=== PATIENT | female | born 1950 | race Caucasian/White ===

== ENCOUNTER 2020-06-11 17:29 | Inpatient (IN) | payer OTHER, SELFPAY ==
[2020-06-11 21:08] VITALS: BP 94/41; PULSE 97; RESP 14; TEMP 37.2; O2SAT 99; BMI 25.5
--- NOTE | 2020-06-11 21:32 | PC.NURSE ---
PT TO ROOM, CHG INTO GOWN AND AWAITING MD'S EVAL.
--- NOTE | 2020-06-11 21:53 | ECG_ITS ---
Test Reason : WEAKNESS Blood Pressure : / mmHG Vent. Rate : 088 BPM Atrial Rate : 088 BPM P-R Int : 132 ms QRS Dur : 070 ms QT Int : 380 ms P-R-T Axes : 025 -08 022 degrees QTc Int : 459 ms Normal sinus rhythm Moderate voltage criteria for LVH, may be normal variant Inferior infarct (cited on or before 18-JAN-2015) Abnormal ECG When compared with ECG of 12-SEP-2019 16:17, No significant change was found Referred By: Mildred Kaur Electronically Signed By:SHAMIR PRATT MD
--- NOTE | 2020-06-11 21:58 | ED_ITS ---
HPI - Female Genitourinary General Chief complaint: Urogenital-Female Stated complaint: ?UTI Time Seen by Provider: 06/11/20 21:45 History of Present Illness HPI Narrative: Patient is a 69-year-old female with a history of Parkinson's, history of dementia currently on Coumadin as well. Patient has a history of DVT/PE in the past. Family did not notice any fever or chills. No trauma n oted. Family noted increasing strong smell of urine. No coughing or congestion or upper respiratory symptoms. No chest pain or shortness of breath. Positive increasing weakness. Related Data Allergies Allergy/AdvReac Type Severity Reaction Status Date / Time amoxicillin [AMOXICILLIN] Allergy Unknown UNKNOWN Unverified 05/03/20 16:49 Review of Systems Review of Systems: Yes Unobtainable due to mental condition and Unobtainable due to mental status (Patient has a long-standing dementia) FOR[facility]LY [facility] Past Medical History Source: obtained from family Medical History Parkinson disease Parkinson's disease dementia Surgical History Hx of section Hx of knee surgery Social History Social History Advance Directives: No Advance Directives Information Provided: Yes Physical Exam Vital Signs: Vital Signs: Vital Signs Temp Pulse Resp BP Pulse Ox 06/12/20 02:00 84 16 110/52 L 99 06/12/20 00:00 97.6 F 84 17 106/65 96 06/11/20 21:08 98.9 F 97 14 94/41 L 99 Body Mass Index 25.5 Appearance: Alert. Oriented X 2 not oriented to time. No acute distress. Eyes: Pupils equal, round and reactive to light. ENT: Pharynx normal. Neck: Normal inspection. Neck supple. No lymph nodes noted. No crepitus CVS: Normal heart rate and rhythm. Pulses normal. Normal S1 and S2 Respiratory: No respiratory distress. Breath sounds normal. No Wheezing. No rales Abdomen: Soft and nontender. No rigidity. No distention. good BS x4 Skin: Skin warm and dry. Normal skin color. Normal skin turgor. Extremities: No lower extremity edema. Neurovascular intact to all extremities. No Lacerations. No Rash Neuro: Oriented X 3. No motor deficit. No sensory deficit. Moving all extermities. No slurred speech Procedures Central Line Placement Right Femoral: Time Out Performed: Yes Patient Placed on Monitor/Pulse Ox: No MD Prep: mask, gown and gloves Central Line Prep: Povidone-Iodine 1% and Chlorhexidine scrub Local Anesthetic: lidocaine 1% Amount of anesthesia used (mL): 3 Ultrasound Used for Placement: No Central Line Lumen Inserted: triple Post Procedure: sutured in place, good blood return, all ports aspirated, flushed, capped and sterile dressing applied Patient Tolerated Procedure: well Complications: none MDM - Female Genitourinary MDM Narrative Medical decision making narrative: Patient had elevated white count. Elevated BUN and creatinine with infected urine. Will give IV fluids. Will admit for IV antibiotics. No evidence for severe sepsis as patient's lactate is 1.4. Currently in stable condition awaiting admissions. Differential Diagnosis Differential diagnosis: Likely urinary tract infection Medical Records Attestation: I reviewed the patient's medical records. Lab Data Attestation: I reviewed the patient's lab results. Result diagrams: 06/12/20 01:19 06/12/20 01:19 Labs: Lab Results 06/11/20 06/12/20 06/12/20 Range/Units 22:17 00:22 00:27 WBC (4.8-10.8) X10*3/uL RBC (4.20-5.50) X10*6/uL Hgb (12.0-16.0) g/dl Hct (37-47) % MCV (80-98) fL MCH (27.0-33.0) pg MCHC (31.0-35.0) g/dl RDW (11.0-16.0) % Plt Count (160-400) X10*3/uL MPV (9.4-12.3) fL Immature Gran % (Auto) (0.0-0.4) % Neut % (Auto) (45-73) % Lymph % (Auto) (20-40) % [place] % (Auto) (2-11) % Eos % (Auto) (0-4) % Baso % (Auto) (0-2) % Lymph # (Auto) (1.2-4.9) X10*3/uL [place] # (Auto) (0.1-1.2) X10*3/uL Eos # (Auto) (0.0-0.4) X10*3/uL Baso # (Auto) (0.0-0.2) X10*3/uL Abs Immat Gran (auto) (0.00-0.03) X10*3/uL Absolute Neuts (auto) (2.0-8.3) X10*3/uL Absolute Nucleated RBC (0.0-0.012) X10*3/uL Nucleated RBC % (auto) (0.0-0.2) /100WBC PT (10.8-13.0) SEC INR (0.9-1.1) Hold Blue Top Sodium (135-145) mmol/L Potassium (3.3-5.1) mmol/l Chloride (96-108) mmol/L Carbon Dioxide (22-29) mmol/L Anion Gap (12-20) BUN (9-16) mg/dL Creatinine (0.5-1.4) mg/dL Estim Creat Clear Calc Estimated GFR POC Glucose 143 H 111 (60-115) mg/dL Random Glucose (60-115) mg/dL Lactic Acid (0.5-2.0) mmol/L Calcium (8.4-10.2) mg/dL Total Bilirubin (0.0-1.0) mg/dL Direct Bilirubin (0.0-0.5) mg/dL AST (5-31) U/L ALT (0-31) U/L Alkaline Phosphatase (39-117) U/L Ammonia (13-55) umol/L Total Protein (6.5-8.0) g/dL Albumin (3.5-5.0) g/dL TSH (0.32-4.0) mIU/mL Urine Color YELLOW Urine Appearance CLOUDY Urine pH 5.5 (5.0-8.0) Ur Specific [place] >= 1.030 H (1.005-1.025) Urine Protein 2+ H (NEG-TRACE) MG/DL Urine Glucose (UA) NEG (NEG) MG/DL Urine Ketones 5 (NEG) MG/DL Urine Blood 1+ H (NEG) Urine Nitrite NEG (NEG) Ur Leukocyte Esterase 2+ H (NEG) Urine RBC 0 (0) /HPF Urine WBC 30-49 H (0-4) /HPF Ur Squamous Epith Cells 2+ /LPF Calcium Phosphate Cryst 1+ /LPF Calcium Oxalate Crystal 1+ /LPF Urine Bacteria 4+ /LPF Urine Yeast 2+ /HPF 06/12/20 06/12/20 06/12/20 Range/Units 01:19 01:19 01:19 WBC 16.4 H (4.8-10.8) X10*3/uL RBC 3.22 L (4.20-5.50) X10*6/uL Hgb 10.4 L (12.0-16.0) g/dl Hct 31.1 L (37-47) % MCV 96.6 (80-98) fL MCH 32.3 (27.0-33.0) pg MCHC 33.4 (31.0-35.0) g/dl RDW 12.4 (11.0-16.0) % Plt Count 372 (160-400) X10*3/uL MPV 10.2 (9.4-12.3) fL Immature Gran % (Auto) 0.3 (0.0-0.4) % Neut % (Auto) 80.4 H (45-73) % Lymph % (Auto) 10.7 L (20-40) % [place] % (Auto) 8.3 (2-11) % Eos % (Auto) 0.1 (0-4) % Baso % (Auto) 0.2 (0-2) % Lymph # (Auto) 1.8 (1.2-4.9) X10*3/uL [place] # (Auto) 1.4 H (0.1-1.2) X10*3/uL Eos # (Auto) 0.0 (0.0-0.4) X10*3/uL Baso # (Auto) 0.0 (0.0-0.2) X10*3/uL Abs Immat Gran (auto) 0.05 H (0.00-0.03) X10*3/uL Absolute Neuts (auto) 13.2 H (2.0-8.3) X10*3/uL Absolute Nucleated RBC 0.000 (0.0-0.012) X10*3/uL Nucleated RBC % (auto) 0.0 (0.0-0.2) /100WBC PT (10.8-13.0) SEC INR (0.9-1.1) Hold Blue Top SEE NOTE Sodium 140 (135-145) mmol/L Potassium 4.4 (3.3-5.1) mmol/l Chloride 106 (96-108) mmol/L Carbon Dioxide 23 (22-29) mmol/L Anion Gap 15 (12-20) BUN 29 H (9-16) mg/dL Creatinine 2.08 H (0.5-1.4) mg/dL Estim Creat Clear Calc 16.6 Estimated GFR 23 POC Glucose (60-115) mg/dL Random Glucose 126 H (60-115) mg/dL Lactic Acid (0.5-2.0) mmol/L Calcium 8.2 L (8.4-10.2) mg/dL Total Bilirubin (0.0-1.0) mg/dL Direct Bilirubin (0.0-0.5) mg/dL AST (5-31) U/L ALT (0-31) U/L Alkaline Phosphatase (39-117) U/L Ammonia (13-55) umol/L Total Protein (6.5-8.0) g/dL Albumin (3.5-5.0) g/dL TSH (0.32-4.0) mIU/mL Urine Color Urine Appearance Urine pH (5.0-8.0) Ur Specific [place] (1.005-1.025) Urine Protein (NEG-TRACE) MG/DL Urine Glucose (UA) (NEG) MG/DL Urine Ketones (NEG) MG/DL Urine Blood (NEG) Urine Nitrite (NEG) Ur Leukocyte Esterase (NEG) Urine RBC (0) /HPF Urine WBC (0-4) /HPF Ur Squamous Epith Cells /LPF Calcium Phosphate Cryst /LPF Calcium Oxalate Crystal /LPF Urine Bacteria /LPF Urine Yeast /HPF 06/12/20 06/12/20 06/12/20 Range/Units 01:19 01:19 01:19 WBC (4.8-10.8) X10*3/uL RBC (4.20-5.50) X10*6/uL Hgb (12.0-16.0) g/dl Hct (37-47) % MCV (80-98) fL MCH (27.0-33.0) pg MCHC (31.0-35.0) g/dl RDW (11.0-16.0) % Plt Count (160-400) X10*3/uL MPV (9.4-12.3) fL Immature Gran % (Auto) (0.0-0.4) % Neut % (Auto) (45-73) % Lymph % (Auto) (20-40) % [place] % (Auto) (2-11) % Eos % (Auto) (0-4) % Baso % (Auto) (0-2) % Lymph # (Auto) (1.2-4.9) X10*3/uL [place] # (Auto) (0.1-1.2) X10*3/uL Eos # (Auto) (0.0-0.4) X10*3/uL Baso # (Auto) (0.0-0.2) X10*3/uL Abs Immat Gran (auto) (0.00-0.03) X10*3/uL Absolute Neuts (auto) (2.0-8.3) X10*3/uL Absolute Nucleated RBC (0.0-0.012) X10*3/uL Nucleated RBC % (auto) (0.0-0.2) /100WBC PT 24.6 H (10.8-13.0) SEC INR 2.1 H (0.9-1.1) Hold Blue Top Sodium (135-145) mmol/L Potassium (3.3-5.1) mmol/l Chloride (96-108) mmol/L Carbon Dioxide (22-29) mmol/L Anion Gap (12-20) BUN (9-16) mg/dL Creatinine (0.5-1.4) mg/dL Estim Creat Clear Calc Estimated GFR POC Glucose (60-115) mg/dL Random Glucose (60-115) mg/dL Lactic Acid (0.5-2.0) mmol/L Calcium (8.4-10.2) mg/dL Total Bilirubin 0.4 (0.0-1.0) mg/dL Direct Bilirubin 0.2 (0.0-0.5) mg/dL AST 16 (5-31) U/L ALT 6 (0-31) U/L Alkaline Phosphatase 72 (39-117) U/L Ammonia 22 (13-55) umol/L Total Protein 6.8 (6.5-8.0) g/dL Albumin 3.4 L (3.5-5.0) g/dL TSH (0.32-4.0) mIU/mL Urine Color Urine Appearance Urine pH (5.0-8.0) Ur Specific [place] (1.005-1.025) Urine Protein (NEG-TRACE) MG/DL Urine Glucose (UA) (NEG) MG/DL Urine Ketones (NEG) MG/DL Urine Blood (NEG) Urine Nitrite (NEG) Ur Leukocyte Esterase (NEG) Urine RBC (0) /HPF Urine WBC (0-4) /HPF Ur Squamous Epith Cells /LPF Calcium Phosphate Cryst /LPF Calcium Oxalate Crystal /LPF Urine Bacteria /LPF Urine Yeast /HPF 06/12/20 06/12/20 Range/Units 01:19 01:19 WBC (4.8-10.8) X10*3/uL RBC (4.20-5.50) X10*6/uL Hgb (12.0-16.0) g/dl Hct (37-47) % MCV (80-98) fL MCH (27.0-33.0) pg MCHC (31.0-35.0) g/dl RDW (11.0-16.0) % Plt Count (160-400) X10*3/uL MPV (9.4-12.3) fL Immature Gran % (Auto) (0.0-0.4) % Neut % (Auto) (45-73) % Lymph % (Auto) (20-40) % [place] % (Auto) (2-11) % Eos % (Auto) (0-4) % Baso % (Auto) (0-2) % Lymph # (Auto) (1.2-4.9) X10*3/uL [place] # (Auto) (0.1-1.2) X10*3/uL Eos # (Auto) (0.0-0.4) X10*3/uL Baso # (Auto) (0.0-0.2) X10*3/uL Abs Immat Gran (auto) (0.00-0.03) X10*3/uL Absolute Neuts (auto) (2.0-8.3) X10*3/uL Absolute Nucleated RBC (0.0-0.012) X10*3/uL Nucleated RBC % (auto) (0.0-0.2) /100WBC PT (10.8-13.0) SEC INR (0.9-1.1) Hold Blue Top Sodium (135-145) mmol/L Potassium (3.3-5.1) mmol/l Chloride (96-108) mmol/L Carbon Dioxide (22-29) mmol/L Anion Gap (12-20) BUN (9-16) mg/dL Creatinine (0.5-1.4) mg/dL Estim Creat Clear Calc Estimated GFR POC Glucose (60-115) mg/dL Random Glucose (60-115) mg/dL Lactic Acid 1.4 (0.5-2.0) mmol/L Calcium (8.4-10.2) mg/dL Total Bilirubin (0.0-1.0) mg/dL Direct Bilirubin (0.0-0.5) mg/dL AST (5-31) U/L ALT (0-31) U/L Alkaline Phosphatase (39-117) U/L Ammonia (13-55) umol/L Total Protein (6.5-8.0) g/dL Albumin (3.5-5.0) g/dL TSH 1.42 (0.32-4.0) mIU/mL Urine Color Urine Appearance Urine pH (5.0-8.0) Ur Specific [place] (1.005-1.025) Urine Protein (NEG-TRACE) MG/DL Urine Glucose (UA) (NEG) MG/DL Urine Ketones (NEG) MG/DL Urine Blood (NEG) Urine Nitrite (NEG) Ur Leukocyte Esterase (NEG) Urine RBC (0) /HPF Urine WBC (0-4) /HPF Ur Squamous Epith Cells /LPF Calcium Phosphate Cryst /LPF Calcium Oxalate Crystal /LPF Urine Bacteria /LPF Urine Yeast /HPF ECG Data ECG interpretation date: 06/12/20 ECG interpretation time: 03:06 Interpretation: Sinus heart rate is 90 [place] QRS QT within normal limits is no acute ST segment elevation noted. Discharge Plan Discharge Clinical Impression: Acute UTI, Acute dehydration
--- NOTE | 2020-06-11 21:59 | XR_ITS ---
EXAMINATION: XR CHEST CLINICAL INFORMATION: Shortness of breath COMPARISON: 09/12/2019 TECHNIQUE: Frontal view of the chest was obtained. FINDINGS: Low lung volumes. Cardiomediastinal silhouette is upper limits of normal, stable. There are some increased interstitial markings which may be chronic. No dense consolidation. No pleural effusion or pneumothorax. XR/XR chest 1V IMPRESSION: No acute cardiopulmonary process.
[2020-06-11 22:00] VITALS: BP 104/58; PULSE 76; RESP 16; O2SAT 99
--- NOTE | 2020-06-11 22:05 | PC.NURSE ---
PT TO COMMODE FOR URINE SAMPLE WITH ASSISTENCE. PT ALERT, PT ON MONITOR, SKIN W/D/P. RESPIRATIONS EASY, N/L. PT IN NAD, CHG INTO GOWN AND MD AT BEDSIDE FOR EVAL.
--- NOTE | 2020-06-11 22:06 | PC.NURSE ---
CXR OBTAINED IN ROOM.
[2020-06-11 22:20] LABS: Glucose, Whole Blood 143 mg/dL (60-115)
[2020-06-11 23:00] VITALS: BP 106/56; PULSE 74; RESP 16; O2SAT 99
[2020-06-11] MEDS: 0.9 % Sodium Chloride 1,000 ML 500 ML IVCONT (23:00)
--- NOTE | 2020-06-11 23:23 | PC.NURSE ---
PT IS A VERY DIFFICULTY. NURSING TRIED FOR IV WITH U/S WITHOUT SUCCESS. MD IN ROOM FOR IV ATTEMPT.
[2020-06-12] VITALS (11 sets, daily range): BP systolic 106–166; BP diastolic 49–86; PULSE 70–85; RESP 16–19; TEMP 36.3–36.8; O2SAT 96–100
[2020-06-12 00:31] LABS: Glucose, Whole Blood 111 mg/dL (60-115)
[2020-06-12 00:33] LABS: Glucose Urine UA NEG (NEG); Leukocyte Esterase Urine 2+ (NEG); Nitrite Urine NEG (NEG); PH 5.5 (5.0-8.0); Specific Gravity - Urine >= 1.030 (1.005-1.025); Urine Blood 1+ (NEG); Urine Ketones 5 MG/DL (NEG); Urine Protein 2+ MG/DL (NEG-TRACE)
[2020-06-12 00:34] LABS: Appearance Urine CLOUDY; Color Urine YELLOW
[2020-06-12 00:44] LABS: Bacteria Urine 4+ /LPF; Calcium Oxalate Crystals Urine 1+ /LPF; Calcium Phosphate Crystals Ur 1+ /LPF; RBC Urine 0 /HPF (0); Squamous Epithelial Cell Urine 2+ /LPF; WBC Urine 30-49 /HPF (0-4)
--- NOTE | 2020-06-12 00:57 | PC.NURSE ---
IN ROOM FOR CENTRAL LINE PLACEMENT.
[2020-06-12 01:29] LABS: MANUAL DIFF FLAG NO
[2020-06-12 01:30] LABS: Basophils Percent Auto 0.2 % (0-2); Eosinophils Percent Auto 0.1 % (0-4); Hematocrit 31.1 % (37-47); Hemoglobin 10.4 g/dl (12.0-16.0); Imm Gran Abs Auto 0.05 X10*3/uL (0.00-0.03); Imm Gran Pct Auto 0.3 % (0.0-0.4); Lymphocytes Absolute Auto 1.8 X10*3/uL (1.2-4.9); Lymphocytes Percent Auto 10.7 % (20-40); Mean Corpuscular HGB Conc 33.4 g/dl (31.0-35.0); Mean Corpuscular Hemoglobin 32.3 pg (27.0-33.0); Mean Corpuscular Volume 96.6 fL (80-98); Mean Platelet Volume 10.2 fL (9.4-12.3); Monocytes Absolute Auto 1.4 X10*3/uL (0.1-1.2); Monocytes Percent Auto 8.3 % (2-11); Neutrophils Absolute Auto 13.2 X10*3/uL (2.0-8.3); Neutrophils Percent Auto 80.4 % (45-73); Platelet Count 372 X10*3/uL (160-400); Red Blood Count 3.22 X10*6/uL (4.20-5.50); Red Cell Distribution Width 12.4 % (11.0-16.0); White Blood Count 16.4 X10*3/uL (4.8-10.8)
[2020-06-12 01:39] LABS: INTERNATIONAL NORM RATIO 2.1 (0.9-1.1); Prothrombin Time 24.6 SEC (10.8-13.0)
[2020-06-12 01:51] LABS: Ammonia 22 umol/L (13-55)
[2020-06-12 01:54] LABS: Lactic Acid 1.4 mmol/L (0.5-2.0)
[2020-06-12 01:57] LABS: Anion Gap 15 (12-20); Blood Urea Nitrogen 29 mg/dL (9-16); Calcium 8.2 mg/dL (8.4-10.2); Carbon Dioxide 23 mmol/L (22-29); Chloride 106 mmol/L (96-108); Creatinine Clr Calc Pharmacy 16.6; Estimated Glomerular Filt Rate 23; Glucose Random 126 mg/dL (60-115); Potassium 4.4 mmol/l (3.3-5.1); Sodium 140 mmol/L (135-145)
[2020-06-12 01:58] LABS: Alanine Aminotransferase 6 U/L (0-31); Albumin Level 3.4 g/dL (3.5-5.0); Alkaline Phosphatase 72 U/L (39-117); Aspartate Amino Transferase 16 U/L (5-31); Bilirubin Direct 0.2 mg/dL (0.0-0.5); Bilirubin Total 0.4 mg/dL (0.0-1.0); Total Protein 6.8 g/dL (6.5-8.0)
--- NOTE | 2020-06-12 02:10 | PC.NURSE ---
PT RESTING IN STRETCHER WITH EYES OPEN, PT IS SPEAKING KHMER WITH DAUGHTER AT BEDSIDE. RESPIRATIONS EASY, N/L. SKIN W/D/P. CALL CASEY W/I REACH AND SIDE RAILS UP X 2. PT REMAINS ON MONITOR WITH HR 76 IN NSR. PT PO 99% ON RA.
[2020-06-12 02:19] LABS: TSH reflex Free T4 1.42 mIU/mL (0.32-4.0)
[2020-06-12] MEDS: cefTRIAXone sodium 1 GM in 0.9 % Sodium Chloride 50 ML IV (03:45)
[2020-06-12 04:32] LABS: SARS COV2 PCR INHOUSE NEGATIVE (Negative)
--- NOTE | 2020-06-12 04:53 | P.HPIM_ITS ---
History of Present Illness Date of Service: 06/12/20 Chief Complaint: altered mental status this is a 69-year-old female with past medical history of DVT on Coumadin who presents to the hospital brought in by her daughter for hallucination, weakness, and possible UTI. Patient's daughter is at bedside and given more of the history. Patient is awake alert and oriented to self and place but is too weak to talk and is [place]-speaking mostly. Her daughter reports that her mother was staying with her for past day or to when she noticed that her mother is more confused, hallucinating, and was telling her that all she wants to do is lay down. She also had low appetite and 1 episode of vomiting. She reports that her the patient had a UTI in the past with similar presentation therefore she was concerned, called the PCP and was asked to bring her to the hospital. Per daughter patient also clenched her left breast but was not telling her much. She is also complaining of bilateral flank pain. When asked her about the chest pain patient is not giving me much history. She denies any fever or chills, no abdominal Pain, no diarrhea or constipation. She is not reporting any urinary symptoms at this time. She has no lower extremity edema pain on arrival to the ED hemodynamically stable with no significant abnormal vitals labs are significant for WBC count of 16.4, INR of 2.1, BUN of 29 with a creatinine of 2.08 (baseline around 0.9 ), UA that is positive for leukocyte Estrace, and WBC past medical history: DVT on Coumadin, Parkinson's disease and dementia surgical history: , knee surgery Family history: Denies Social history: Lives by herself mostly, uses a walker or cane sometimes, has [employer] come in daily, denies any tobacco alcohol or illicit drug Review of Systems Review of Systems: Yes all other systems are reviewed and are negative [facility] Medical History History of DVT (deep vein thrombosis) Parkinson disease Parkinson's disease dementia Surgical History Hx of section Hx of knee surgery Social History Advance Directives: No Advance Directives Information Provided: Yes Meds Allergies Allergy/AdvReac Type Severity Reaction Status Date / Time amoxicillin [AMOXICILLIN] Allergy Unknown UNKNOWN Unverified 05/03/20 16:49 Physical Exam Vital Signs and Narrative: Vital Signs: Last Vital Signs Temp 97.6 F 06/12/20 00:00 Pulse 85 06/12/20 04:00 Resp 18 06/12/20 04:00 BP 122/63 06/12/20 04:00 Pulse Ox 99 06/12/20 04:00 Body Mass Index 25.5 Const: Other: patient appears ill, weak, not forthcoming with much information General: cooperative and no acute distress Eyes: General: appearance normal, both eyes and all related structures Pupils: Equal, round and reactive pupils present Resp: Effort & Inspection: normal respiratory effort and able to speak in complete sentences Auscultation: clear to auscultation bilaterally Cardio: Rate: regular rate Rhythm: regular rhythm GI: Palpation (GI): Soft to palpation Auscultation: normal bowel sounds : Other: bilateral flank pain Skin: General skin exam: no rashes or lesions noted Neuro: Cranial nerves: Yes Equal, round and reactive pupils present Cognition (Neuro): normal cognition Extrem: General: Yes normal to inspection and Yes no pedal edema Results Labs Labs: Laboratory Tests 06/11/20 06/12/20 06/12/20 22:17 00:22 00:27 WBC RBC Hgb Hct MCV MCH MCHC RDW Plt Count MPV Immature Gran % (Auto) Neut % (Auto) Lymph % (Auto) Sac % (Auto) Eos % (Auto) Baso % (Auto) Lymph # (Auto) Sac # (Auto) Eos # (Auto) Baso # (Auto) Abs Immat Gran (auto) Absolute Neuts (auto) Absolute Nucleated RBC Nucleated RBC % (auto) PT INR Hold Blue Top Sodium Potassium Chloride Carbon Dioxide Anion Gap BUN Creatinine Estim Creat Clear Calc Estimated GFR POC Glucose 143 H 111 Random Glucose Lactic Acid Calcium Total Bilirubin Direct Bilirubin AST ALT Alkaline Phosphatase Ammonia Total Protein Albumin TSH Urine Color YELLOW Urine Appearance CLOUDY Urine pH 5.5 Ur Specific [place] >= 1.030 H Urine Protein 2+ H Urine Glucose (UA) NEG Urine Ketones 5 Urine Blood 1+ H Urine Nitrite NEG Ur Leukocyte Esterase 2+ H Urine RBC 0 Urine WBC 30-49 H Ur Squamous Epith Cells 2+ Calcium Phosphate Cryst 1+ Calcium Oxalate Crystal 1+ Urine Bacteria 4+ Urine Yeast 2+ Coronavirus (PCR) 06/12/20 06/12/20 06/12/20 01:19 01:19 01:19 WBC 16.4 H RBC 3.22 L Hgb 10.4 L Hct 31.1 L MCV 96.6 MCH 32.3 MCHC 33.4 RDW 12.4 Plt Count 372 MPV 10.2 Immature Gran % (Auto) 0.3 Neut % (Auto) 80.4 H Lymph % (Auto) 10.7 L Sac % (Auto) 8.3 Eos % (Auto) 0.1 Baso % (Auto) 0.2 Lymph # (Auto) 1.8 Sac # (Auto) 1.4 H Eos # (Auto) 0.0 Baso # (Auto) 0.0 Abs Immat Gran (auto) 0.05 H Absolute Neuts (auto) 13.2 H Absolute Nucleated RBC 0.000 Nucleated RBC % (auto) 0.0 PT INR Hold Blue Top SEE NOTE Sodium 140 Potassium 4.4 Chloride 106 Carbon Dioxide 23 Anion Gap 15 BUN 29 H Creatinine 2.08 H Estim Creat Clear Calc 16.6 Estimated GFR 23 POC Glucose Random Glucose 126 H Lactic Acid Calcium 8.2 L Total Bilirubin Direct Bilirubin AST ALT Alkaline Phosphatase Ammonia Total Protein Albumin TSH Urine Color Urine Appearance Urine pH Ur Specific [place] Urine Protein Urine Glucose (UA) Urine Ketones Urine Blood Urine Nitrite Ur Leukocyte Esterase Urine RBC Urine WBC Ur Squamous Epith Cells Calcium Phosphate Cryst Calcium Oxalate Crystal Urine Bacteria Urine Yeast Coronavirus (PCR) 06/12/20 06/12/20 06/12/20 01:19 01:19 01:19 WBC RBC Hgb Hct MCV MCH MCHC RDW Plt Count MPV Immature Gran % (Auto) Neut % (Auto) Lymph % (Auto) Sac % (Auto) Eos % (Auto) Baso % (Auto) Lymph # (Auto) Sac # (Auto) Eos # (Auto) Baso # (Auto) Abs Immat Gran (auto) Absolute Neuts (auto) Absolute Nucleated RBC Nucleated RBC % (auto) PT 24.6 H INR 2.1 H Hold Blue Top Sodium Potassium Chloride Carbon Dioxide Anion Gap BUN Creatinine Estim Creat Clear Calc Estimated GFR POC Glucose Random Glucose Lactic Acid Calcium Total Bilirubin 0.4 Direct Bilirubin 0.2 AST 16 ALT 6 Alkaline Phosphatase 72 Ammonia 22 Total Protein 6.8 Albumin 3.4 L TSH Urine Color Urine Appearance Urine pH Ur Specific [place] Urine Protein Urine Glucose (UA) Urine Ketones Urine Blood Urine Nitrite Ur Leukocyte Esterase Urine RBC Urine WBC Ur Squamous Epith Cells Calcium Phosphate Cryst Calcium Oxalate Crystal Urine Bacteria Urine Yeast Coronavirus (PCR) 06/12/20 06/12/20 06/12/20 01:19 01:19 03:25 WBC RBC Hgb Hct MCV MCH MCHC RDW Plt Count MPV Immature Gran % (Auto) Neut % (Auto) Lymph % (Auto) Sac % (Auto) Eos % (Auto) Baso % (Auto) Lymph # (Auto) Sac # (Auto) Eos # (Auto) Baso # (Auto) Abs Immat Gran (auto) Absolute Neuts (auto) Absolute Nucleated RBC Nucleated RBC % (auto) PT INR Hold Blue Top Sodium Potassium Chloride Carbon Dioxide Anion Gap BUN Creatinine Estim Creat Clear Calc Estimated GFR POC Glucose Random Glucose Lactic Acid 1.4 Calcium Total Bilirubin Direct Bilirubin AST ALT Alkaline Phosphatase Ammonia Total Protein Albumin TSH 1.42 Urine Color Urine Appearance Urine pH Ur Specific [place] Urine Protein Urine Glucose (UA) Urine Ketones Urine Blood Urine Nitrite Ur Leukocyte Esterase Urine RBC Urine WBC Ur Squamous Epith Cells Calcium Phosphate Cryst Calcium Oxalate Crystal Urine Bacteria Urine Yeast Coronavirus (PCR) NEGATIVE ECG Interpretation: Normal sinus rhythm Moderate voltage criteria for LVH, may be normal variant Inferior infarct (cited on or before 18-JAN-2015) Abnormal ECG When compared with ECG of 12-SEP-2019 16:17, No significant change was found Imaging CT scan - abdomen: Radiologist's impression: No acute findings in the abdomen or pelvis. No inflammatory changes. Nonobstructing bilateral renal calculi. CT scan - head: Radiologist's impression: IMPRESSION: No acute intracranial pathology. Mild volume loss with small vessel ischemic change. Assessment and Plan (1) Acute UTI: Status: Acute (2) CARMEN (acute kidney injury): Status: Acute (3) Encephalopathy: Status: Acute (4) History of DVT (deep vein thrombosis): Status: Acute this is a 69-year-old female brought in to the hospital with en cephalopathy found to have UTI and CARMEN # encephalopathy - secondary to acute infection and dehydration - has leukocytosis, UA that is positive, per her daughter patient is slightly back to her normal now that she is in the hospital received fluids and antibiotic plan: - Treat underlying infection - IV hydration - will follow mental status # UTI/ pyelonephritis - no evidence of sepsis - has bilateral CVA tenderness - UA positive, leukocytosis, afebrile, no tachycardia or tachypnea Plan: - Ceftriaxone - urine blood cultures collected in the ED will follow # CARMEN - most likely secondary to dehydration as well as acute UTI plan: - Treat with IV fluid - follow BMP - if no improvement consider consulting Nephrology # history of DVT - therapeutic INR - will continue Coumadin, PT INR daily # Parkinson's dementia DVT prophylaxis: Coumadin
--- NOTE | 2020-06-12 04:55 | PC.NURSE ---
UNABLE TO CONFIRM MEDICATIONS. DAUGHTER IS GOING HOME TO GET MEDICATION LIST AND WILL RETURN WITH THE LIST. DAUGHTER DOES NOT REMEMBER ANY NAMES OF THE MEDS PT IS ON. DAUGHTER IS GOING HOME WILL RETURN AROUND 0800 TODAY,
--- NOTE | 2020-06-12 05:26 | PC.NURSE ---
FLOOR UNABLE TO TAKE REPORT AT THIS TIME. WILL RETURN CALL.
--- NOTE | 2020-06-12 05:33 | PC.NURSE ---
DAUGHTER IS LEAVING ED AT THIS TIME AND WILL RETURN WITH THE LISTS.
--- NOTE | 2020-06-12 06:05 | PC.NURSE ---
FLOOR UNABLE TO TAKE REPORT, PT REMAINS AWAKE AND ALERT, LOOKING AROUND AND WATCHING TV. PT IN NAD AT THIS TIME. CALL JACINTO W/I REACH, BED IN LOW LOCKED POSITION. PT AWAITING FOR TRANSFER TO FLOOR,.
--- NOTE | 2020-06-12 06:30 | PC.NURSE ---
REPORT TO RUDOLPH, RN. PT TO FLOOR IN STRETCHER AND LEFT ED IN NAD.
[2020-06-12] MEDS: Lactated Ringers 1,000 ML 100 ML IVCONT ×2 (07:37→17:43)
[2020-06-12] MEDS: 0.9 % Sodium Chloride Flush 3 ML SYRINGE IVFLUSH ×2 (07:40→15:53)
[2020-06-12 09:27] LABS: Troponin-I High Sensitivity 28.4 ng/L (<3.5-17.0)
--- NOTE | 2020-06-12 11:37 | MHC.CM.PN ---
CM spoke with dtr/HCP Susan who reports patient lives alone, amb with cane/walker and uses a wheel chair for distance. Patient has DIRECTOR OF COMMUNICATIONS services with Tim daily who helps cook, housework, bathing and laundry. Patient has a HCP, copy requested. Discussed discharge plan, home with resumption of [employer]OR [employer] COMM[employer]ICATION[employer] services. Family will provide transportation. CM will continue to follow patient for discharge needs.
[2020-06-12] MEDS: PARoxetine HCL 20 MG TABLET PO (15:53)
[2020-06-12] MEDS: Carbidopa/Levodopa 25/100 TABLET 2 TAB PO ×2 (15:53→20:05)
[2020-06-12] MEDS: Pramipexole Di-HCL 0.25 MG TABLET PO ×2 (16:25→20:51)
[2020-06-12] MEDS: QUEtiapine Fumarate 25 MG TABLET PO (20:51)
--- NOTE | 2020-06-12 21:53 | CT_ITS ---
EXAMINATION: CT HEAD WITHOUT CONTRAST CLINICAL INFORMATION: Altered mental status. COMPARISON: 09/12/2019 TECHNIQUE: Contiguous axial imaging was performed from the skull base to vertex without intravenous contrast. This CT examination was performed using dose optimization techniques as appropriate, variously including the following: * Automated exposure control * Adjustment of mA and/or kV according to patient size (this includes techniques or standardized protocols for targeted exams where dose is matched to indication/reason for exam; i.e. extremities or head) Use of iterative reconstruction technique DLP: 627 mGy-cm. FINDINGS: There is no evidence of acute intracranial hemorrhage or territorial infarction. No abnormal mass effect or midline shift is seen. Herrera to white matter differentiation is well preserved. No extra-axial fluid collections are identified. No hydrocephalus. Proportional prominence of the ventricles and sulcal spaces is consistent with mild volume loss. Patchy periventricular and deep white matter hypoattenuation is consistent with mild small vessel ischemic changes. The osseous structures and soft tissues are normal. Mucous retention cyst of the left maxillary sinus. The mastoid air cells and visualized portions of the paranasal sinuses are otherwise well aerated. CT/CT head/brain wo con IMPRESSION: No acute intracranial pathology. Mild volume loss with small vessel ischemic change.
--- NOTE | 2020-06-12 21:53 | CT_ITS ---
EXAMINATION: CT ABDOMEN AND PELVIS WITHOUT CONTRAST CLINICAL INFORMATION: Abdominal pain COMPARISON: 06/06/2019 TECHNIQUE: Multidetector volumetric imaging was performed from the superior aspect of the liver through the pubic symphysis. Sagittal and coronal reformatted images were obtained on the technologist's workstation. This CT examination was performed using dose optimization techniques as appropriate, variously including the following: *Automated exposure control *Adjustment of mA and/or kV according to patient size (this includes techniques or standardized protocols for targeted exams where dose is matched to indication/reason for exam; i.e. extremities or head) *Use of iterative reconstruction technique DLP: 442 mGy-cm FINDINGS: LUNG BASES: Bibasilar atelectasis. Coronary artery calcification. LIVER, GALLBLADDER, AND BILIARY TREE: The liver is normal in size, shape, and attenuation. No focal hepatic lesion or biliary ductal dilatation is present. The gallbladder is unremarkable with no evidence of radiopaque gallstones, gallbladder wall thickening, or obvious pericholecystic inflammatory changes. PANCREAS: Unremarkable. SPLEEN: Unremarkable. ADRENAL GLANDS: Unremarkable. KIDNEYS AND URETERS: The kidneys are normal in size, shape, and attenuation. No hydronephrosis or hydroureter. Left mid to lower pole 0.4 cm calculus is 7 cm from the posterior axillary line. There is also 0.1 cm left lower pole calculus. There is a right upper pole 0.5 cm calculus which is 7 cm from the posterior axillary line. BLADDER: Unremarkable. GASTROINTESTINAL TRACT: The stomach is unremarkable. Normal caliber small bowel. There is no obstruction. No colonic wall thickening or acute inflammation. Mild sigmoid diverticulosis without diverticulitis. The appendix is not seen. No inflammatory changes at the cecum. ABDOMINAL WALL: No significant hernia is appreciated. LYMPH NODES: Normal. VASCULAR: Normal caliber aorta. Mild atherosclerotic calcification. Radiopaque clips are seen at the distal aorta region. PELVIC VISCERA: No adnexal mass. Uterus is not visualized. OSSEOUS STRUCTURES: No acute or suspicious osseous abnormality. Moderate multilevel degenerative changes of the spine. CT/CT abdomen pelvis wo con IMPRESSION: No acute findings in the abdomen or pelvis. No inflammatory changes. Nonobstructing bilateral renal calculi.
[2020-06-13] MEDS: 0.9 % Sodium Chloride Flush 3 ML SYRINGE IVFLUSH (01:40)
[2020-06-13 03:29] VITALS: BP 133/81; PULSE 67; RESP 17; TEMP 36.8; O2SAT 98
[2020-06-13] MEDS: Lactated Ringers 1,000 ML 100 ML IVCONT (04:10)
[2020-06-13] MEDS: Carbidopa/Levodopa 25/100 TABLET 2 TAB PO ×2 (05:56→11:13)
[2020-06-13] MEDS: cefTRIAXone sodium 1 GM in 0.9 % Sodium Chloride 50 ML IV (05:56)
[2020-06-13 06:21] LABS: MANUAL DIFF FLAG NO
[2020-06-13 06:35] LABS: Basophils Percent Auto 0.2 % (0-2); Eosinophils Absolute Auto 0.1 X10*3/uL (0.0-0.4); Eosinophils Percent Auto 0.5 % (0-4); Hematocrit 30.7 % (37-47); Hemoglobin 10.2 g/dl (12.0-16.0); Imm Gran Abs Auto 0.04 X10*3/uL (0.00-0.03); Imm Gran Pct Auto 0.4 % (0.0-0.4); Lymphocytes Absolute Auto 2.2 X10*3/uL (1.2-4.9); Mean Corpuscular HGB Conc 33.2 g/dl (31.0-35.0); Mean Corpuscular Hemoglobin 32.6 pg (27.0-33.0); Mean Corpuscular Volume 98.1 fL (80-98); Mean Platelet Volume 11.6 fL (9.4-12.3); Monocytes Percent Auto 9.7 % (2-11); Neutrophils Absolute Auto 6.6 X10*3/uL (2.0-8.3); Neutrophils Percent Auto 67.2 % (45-73); Platelet Count 279 X10*3/uL (160-400); Red Blood Count 3.13 X10*6/uL (4.20-5.50); Red Cell Distribution Width 12.5 % (11.0-16.0); White Blood Count 9.9 X10*3/uL (4.8-10.8)
[2020-06-13 06:41] LABS: INTERNATIONAL NORM RATIO 1.7 (0.9-1.1); Prothrombin Time 20.2 SEC (10.8-13.0)
[2020-06-13 06:57] LABS: Anion Gap 15 (12-20); Blood Urea Nitrogen 28 mg/dL (9-16); Carbon Dioxide 24 mmol/L (22-29); Chloride 107 mmol/L (96-108); Creatinine Clr Calc Pharmacy 33.2; Estimated Glomerular Filt Rate 52; Glucose Random 100 mg/dL (60-115); Potassium 4.5 mmol/l (3.3-5.1); Sodium 141 mmol/L (135-145)
[2020-06-13 07:39] VITALS: BP 138/76; PULSE 66; RESP 16; TEMP 36.2; O2SAT 100
[2020-06-13] MEDS: PARoxetine HCL 20 MG TABLET PO (08:03)
[2020-06-13] MEDS: Omeprazole 20 MG CAPSULE.DR PO (08:03)
[2020-06-13] MEDS: Pramipexole Di-HCL 0.25 MG TABLET PO (08:03)
[2020-06-13] MEDS: QUEtiapine Fumarate 25 MG TABLET PO (08:03)
[2020-06-13] MEDS: Multivitamin TABLET 1 TAB PO (08:03)
--- NOTE | 2020-06-13 08:23 | P.CDIC_ITS ---
[facility] Concurrent Query Service Date: 06/13/20 Documentation Clarification: Please clarify if you are treating a proba ble/suspected/likely or confirmed: Specifics: Acute encephalopathy Toxic encephalopathy Metabolic encephalopathy Please specify if known Provider Response: Metabolic Encephalopathy PLEASE DO NOT DELETE/MODIFY EXISTING CONTENT Additional information is needed in order to code to the highest accuracy and appropriate Severity of Illness (SOI). Please clarify the information noted below in your progress notes and discharge summary. Risk Factors/Clinical Indicators/Treatments H&P: encephalopathy, acute secondary to infection and dehydration. confused, hallucinations, low appetite. Dx. UTI CDS: Rosey Caicedo CCS, [facility] Contact Number: [phone] Please Review the information above and exercise your independent professional judgment in responding to the query. If you concur, pleas document in the PROGRESS NOTES and DISCHARGE SUMMARY. If you do not agree with the query, please document in the query above. THIS QUERY IS PART OF THE PERMANENT MEDICAL RECORD
[2020-06-13 11:19] VITALS: BP 132/74; PULSE 73; RESP 18; TEMP 36.3; O2SAT 98
--- NOTE | 2020-06-13 11:48 | P.DS_ITS ---
DS: Providers Provider Date of admission: 06/12/20 04:52 Primary care physician: Mirella Saavedra DO DS: Diagnosis Discharge Diagnosis (1) Acute UTI: Status: Acute (2) CARMEN (acute kidney injury): Status: Acute (3) Encephalopathy: Status: Acute (4) History of DVT (deep vein thrombosis): Status: Acute DS: Summary Hospital Course Hospital Course: Patient was admitted for metabolic encephalopathy due to urinary tract infection dehydration complicated by acute kidney injury. She was given IV hydration and IV ceftriaxone. Mental status improved to baseline and acute kidney injury resolved. Urine cultures are growing Gram-negative rods, she will be discharged on 3 more days of p.o. Ceftin. Time Spent with Patient Time attestation: Total time spent providing and/or coordinating discharge services: Physical Exam Vital Signs: Vital Signs: Vital Signs Temp Pulse Resp BP Pulse Ox 06/13/20 11:19 97.3 F 73 18 132/74 98 06/13/20 07:39 97.1 F 66 16 138/76 100 06/13/20 03:29 98.2 F 67 17 133/81 98 06/12/20 23:36 98.2 F 70 18 155/71 H 98 06/12/20 20:00 98 F 76 19 129/60 98 06/12/20 15:43 97.9 F 78 18 166/86 H 98 Body Mass Index 25.5 General: Alert, pleasant, no acute distress Resp: CTA bilateral CVS: S1,S2,RRR GI: soft, non tender, non distended Neuro: motor grossly intact Psych: impaired insight DS: Data Data Completed and Pending Labs on day of discharge: Labs from last 24 hours 06/13/20 06/13/20 06/13/20 05:29 05:29 05:29 WBC 9.9 RBC 3.13 L Hgb 10.2 L Hct 30.7 L MCV 98.1 H MCH 32.6 MCHC 33.2 RDW 12.5 Plt Count 279 MPV 11.6 Immature Gran % (Auto) 0.4 Neut % (Auto) 67.2 Lymph % (Auto) 22.0 [place] % (Auto) 9.7 Eos % (Auto) 0.5 Baso % (Auto) 0.2 Lymph # (Auto) 2.2 [place] # (Auto) 1.0 Eos # (Auto) 0.1 Baso # (Auto) 0.0 Abs Immat Gran (auto) 0.04 H Absolute Neuts (auto) 6.6 Absolute Nucleated RBC 0.000 Nucleated RBC % (auto) 0.0 PT 20.2 H INR 1.7 H Sodium 141 Potassium 4.5 Chloride 107 Carbon Dioxide 24 Anion Gap 15 BUN 28 H Creatinine 1.04 Estim Creat Clear Calc 33.2 Estimated GFR 52 Random Glucose 100 Calcium 8.0 L Preliminary micro results at discharge 06/12/20 01:45 Urine Culture - Preliminary Urine clean catch - Clean Catch Midstream Gram negative denice Gram negative denice#2 06/12/20 01:18 Blood Culture - Preliminary Blood - Venous No growth after 24 hours. 06/12/20 01:18 Blood Culture - Preliminary Blood - Venous No growth after 24 hours. Discharge Plan Discharge Patient Disposition: Home Health Service Referrals: Mirella Medina DO [Primary Care Provider] - Discharge Medications: New cefuroxime axetil 250 mg tablet 250 mg PO Q12H Qty: 6 RF: 0 Continued quetiapine 25 mg tablet 25 mg PO BID RF: 0 cetirizine 10 mg tablet 10 mg PO DAILY PRN (Reason: allergies) RF: 0 clonazepam 0.5 mg tablet 0.5 mg PO BID PRN (Reason: anxiety) RF: 0 warfarin 2.5 mg tablet 2.5 tab PO DAILY@1600 RF: 0 paroxetine HCl 20 mg tablet 20 mg PO QAM RF: 0 pramipexole 0.25 mg tablet 0.25 mg PO TID RF: 0 omeprazole 20 mg capsule,delayed release(DR/EC) 20 mg PO DAILY RF: 0 multivitamin Tablet 1 tab PO DAILY RF: 0 carbidopa-levodopa 25-100 mg tablet 2 tab PO 0700,1100,1500,1900 RF: 0 nitrofurantoin macrocrystal 50 mg capsule 50 mg PO BEDTIME Qty: 0 RF: 0 Discharge Orders: Discharge Order (Routine); Ordered 06/13/20 Ordered By: Ben Mas Diet: advance to your usual diet Activity on Discharge: As tolerated Visit Report Forms: Patient Portal Discharge page Care Plan Goals: recovery Health Concerns: uti, parkinsons with dementia Plan of Treatment: complete antibiotic course, encourage oral intake
--- NOTE | 2020-06-13 11:52 | MHC.CM.PN ---
Patient is being discharged home today with resumption of [facility] services. Family will provide transport.
--- NOTE | 2020-06-13 14:09 | PC.NURSE ---
TLC removed per facility protocol from right groin. Tip intact. No s/sx of infection to site.
== END 2020-06-13 15:48 | disposition home health service (06) | DRG 689 ==
LOC: HO.ED 06-12 04:50 → HO.IMC 06-12 05:17
PROVIDERS: Admitting Provider Internal Medicine; Emergency Provider Emergency Medicine Emergency Medical Services; PCP Internal Medicine; Visit Provider Internal Medicine
DX: N39.0 Urinary tract infection, site not specified (principal); G93.41 Metabolic encephalopathy; N17.9 Acute kidney failure, unspecified; Z86.718 Personal history of other venous thrombosis and embolism; E86.0 Dehydration; G20 Parkinson's disease; F02.80 Dementia in other diseases classified elsewhere, unspecified severity, without behavioral disturbance, psychotic disturbance, mood disturbance, and anxiety; Z20.828 Contact with and (suspected) exposure to other viral communicable diseases; Z88.0 Allergy status to penicillin; Z79.01 Long term (current) use of anticoagulants; Z79.899 Other long term (current) drug therapy
CPT/HCPCS: 36415; 70450; 71045; 74176; 80048; 80076; 81001; 82140; 82947; 83605; 84443; 84484; 85025; 85610; 87040; 87086; 87088; 87186; 87635; 93005; 96361; 96365; 99219; 99284; 99285; J0696

== ENCOUNTER 2020-06-22 11:45 | Outpatient (REF) | payer OTHER, SELFPAY ==
--- NOTE | 2020-06-22 | US_ITS ---
EXAMINATION: US RETROPERITONEAL LIMITED (RENAL ONLY) CLINICAL INFORMATION: Calculus of kidney. COMPARISON: CT abdomen and pelvis 06/12/2020. Renal ultrasound 05/13/2019. KUB 04/20/2019. TECHNIQUE: Real-time imaging of the kidneys. FINDINGS: RIGHT KIDNEY: 8.5 x 4.3 x 4.2 cm (SAG x AP x TRV). The kidney is normal in size, contour, and echogenicity. Renal cortical thickness is normal. There is a 3 x 4 x 5 mm in the upper pole stone. No focal parenchymal lesions or hydronephrosis. LEFT KIDNEY: 9.3 x 5.0 x 4.6 cm (SAG x AP x TRV). The kidney is normal in size, contour, and echogenicity. Renal cortical thickness is normal. There are multiple renal stones. Largest stone or cluster of stones measures in the lower pole 4 x 7 x 5 mm full. No focal parenchymal lesions or hydronephrosis. US/US renal BI IMPRESSION: Bilateral renal stones, left greater than right.
== END 2020-06-22 11:46 | disposition home or self-care (01) ==
LOC: HO.HMGCX 11:45
PROVIDERS: PCP Internal Medicine; Visit Provider Urology
DX: N20.0 Calculus of kidney (principal)
CPT/HCPCS: 76775

== ENCOUNTER → 2020-10-02 09:55 | Outpatient (BNVA) | payer OTHER, SELFPAY | PROVIDERS: PCP Internal Medicine; Visit Provider Urology | DX: Z13.89 Encounter for screening for other disorder (principal) | CPT/HCPCS: 99202 ==

== ENCOUNTER 2020-10-04 12:44 | Emergency (ER) | payer OTHER, SELFPAY ==
--- NOTE | ~2020-10-04 | CT_ITS ---
EXAMINATION: CT CERVICAL SPINE WITHOUT CONTRAST CLINICAL INFORMATION: Syncope COMPARISON: CT cervical spine noncontrast 03/05/2014 TECHNIQUE: Multidetector volumetric CT imaging of the cervical spine is performed without contrast in the axial plane. Additional 2D reformatted coronal and sagittal images are generated on the CT workstation and uploaded to PACS. This CT examination was performed using dose optimization techniques as appropriate, variously including the following: *Automated exposure control *Adjustment of mA and/or kV according to patient size (this includes techniques or standardized protocols for targeted exams where dose is matched to indication/reason for exam; i.e. extremities or head) *Use of iterative reconstruction technique DLP: 251 mGy-cm FINDINGS: There is no vertebral compression fracture, fracture line, spondylolisthesis, or prevertebral soft tissue swelling. The craniocervical junction appears normal. The odontoid appears intact. There is reversal cervical lordosis which is chronic finding. There are degenerative changes again seen between anterior arch C1 and the dens. There are multilevel degenerative disc changes greatest at C5-C6 and also at C4-C5 and C6-C7, with disc narrowing and vertebral spurring. There is no perched facet. Subcentimeter circumscribed cyst left T2 posterior element is stable. No paraspinal soft tissue swelling. No apical pneumothorax or subcutaneous emphysema. CT/CT cervical spine wo con IMPRESSION: 1. No acute bony abnormality or prevertebral soft tissue swelling. 2. Chronic reversal cervical lordosis with multilevel degenerative changes.
--- NOTE | ~2020-10-04 | XR_ITS ---
EXAMINATION: XR CHEST CLINICAL INFORMATION: Syncope. COMPARISON: 06/11/2020 portable chest. TECHNIQUE: 2 views of the chest were obtained. FINDINGS: No significant abnormality is noted involving the heart, lungs, mediastinum, bony thorax or soft tissues. XR/XR chest 2V IMPRESSION: No acute cardiopulmonary process.
--- NOTE | ~2020-10-04 | CT_ITS ---
EXAMINATION: CT HEAD WITHOUT CONTRAST CLINICAL INFORMATION: Syncope COMPARISON: CT head noncontrast 06/12/2020 TECHNIQUE: Contiguous axial imaging was performed from the skull base to vertex without intravenous administration of contrast. Additional 2-D coronal and sagittal reformatted images are generated on the CT workstation and uploaded to PACS. This CT examination was performed using dose optimization techniques as appropriate, variously including the following: *Automated exposure control *Adjustment of mA and/or kV according to patient size (this includes techniques or standardized protocols for targeted exams where dose is matched to indication/reason for exam; i.e. extremities or head) *Use of iterative reconstruction technique DLP: 653 mGy-cm FINDINGS: There is no intracranial hemorrhage, hematoma, or extra-axial fluid collection. The ventricles are normal in size. There is no hydrocephalus, edema, or mass effect. There is some accentuation of the cortical sulci, fissures, and cisterns similar to prior study. Again, there is periventricular white matter gliosis most adjacent to frontal horns, slightly greater on right. There is bilateral punctate anterior external capsule lacunar infarct again seen. There is no visible acute territorial infarct or mass lesion. The calvarium appears intact. There is no pneumocephalus or orbital emphysema. The sinuses and middle ears and mastoids show no air-fluid levels. Again, there is retention cyst or polyp left maxillary sinus approximately 1.5 cm and new smaller polyp or cyst right maxillary sinus 0.[address]/CT head/brain wo con IMPRESSION: No acute intracranial abnormality.
--- NOTE | 2020-10-04 12:59 | ECG_ITS ---
Test Reason : SYNCOPE Blood Pressure : / mmHG Vent. Rate : 091 BPM Atrial Rate : 091 BPM P-R Int : 130 ms QRS Dur : 070 ms QT Int : 370 ms P-R-T Axes : 036 -06 031 degrees QTc Int : 455 ms Normal sinus rhythm Minimal voltage criteria for LVH, may be normal variant Inferior infarct (cited on or before 18-JAN-2015) Cannot rule out Anterior infarct , age undetermined Abnormal ECG When compared with ECG of 11-JUN-2020 22:40, No significant change was found Referred By: Celia Bolanos Electronically Signed By:Forrest Argeuta
[2020-10-04 13:00] VITALS: BP 105/56; BP 98/68; PULSE 90; RESP 18; TEMP 36.6; O2SAT 96; O2SAT 98; BMI 25.0
[2020-10-04 13:12] LABS: Glucose, Whole Blood 144 mg/dL (60-115)
--- NOTE | 2020-10-04 13:27 | ED.DIZZY ---
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 Tilley and chronically on ciprofloxacin daughter unsure exactly why prescribed by [facility], nephrolithiasis and osteopenia presenting to the ED via EMS after being at the Coumadin clinic prior to arrival and having a near syncopal episode witnessed by her daughter and bystanders. I called the daughter Susan at [phone] and she explained to me that when they were leaving the [facility] Clinic after having a good morning including breakfast the mother was reporting that she had to use the bathroom therefore they went into the bathroom and she was sitting on the toilet for a while and the daughter noticed that she was struggling to have a bowel movement therefore she assisted her by massaging her anus/rectal area which she normally does to help her mother have a bowel movement, then her mother was able to have a bowel movement and she assisted her mother with re-dressing and when her mother went to wash her hands she noticed that she was weak and she almost fell over therefore she finished washing her mother's hands for her walker outside of the bathroom and sat her down in the chair next to the bathroom this is when she started to tell her daughter that she was dizzy and felt like she after vomit therefore her daughter went to the bathroom to get some tissue when she came out a bystander had told her daughter that the patient had thrown up. Therefore bystanders that work there helped lay the patient down to the ground and they called EMS. Daughter reports that at the time she seemed more confused than normal. Reports that when she gets more confused than normal with usually because of the UTIs although she is currently on 2 different antibiotics so she is unsure why this happened today. Patient arrived by EMS she is presently confused although no focal neuro deficits and she was able to assist in taken off all her clothes and she had a bowel movement in her pull up therefore we assisted to change her. She was only reporting that she had to urinate otherwise denies any complaints at this time. MD elicited complaint: dizziness and near syncope Pertinent past history: other (PE/DVT/recurrent UTIs) Onset (ago): minute(s) (Few minutes prior to arrival) Timing: gradual onset and constant Severity: moderate Description: near-syncope Context: change in medication (Started on Augmentin on 10/02/[address] Tilley) History of similar symptoms: No Associated symptoms: nausea and vomiting Related Data Home Medications Medication Instructions Recorded Confirmed carbidopa-levodopa 2 tab PO 0700,1100,1500,1900 06/12/20 06/12/20 cetirizine 10 mg PO DAILY PRN 06/12/20 06/13/20 clonazepam 0.5 mg PO BID PRN 06/12/20 06/13/20 multivitamin 1 tab PO DAILY 06/12/20 06/12/20 omeprazole 20 mg PO DAILY 06/12/20 06/13/20 paroxetine HCl 20 mg PO QAM 06/12/20 06/13/20 pramipexole 0.25 mg PO TID 06/12/20 06/13/20 quetiapine 25 mg PO BID 06/12/20 06/13/20 warfarin 2.5 tab PO DAILY@1600 06/12/20 06/13/20 Previous Rx's Medication Instructions Recorded cefuroxime axetil 250 mg PO Q12H #6 tab 06/13/20 nitrofurantoin macrocrystal 50 mg PO BEDTIME #0 cap 06/13/20 amoxicillin 875 mg-potassium 1 tab PO BID 7 Days #14 tab 10/02/20 clavulanate 125 mg tablet Allergies Allergy/AdvReac Type Severity Reaction Status Date / Time amoxicillin [AMOXICILLIN] Allergy Unknown UNKNOWN Unverified 05/03/20 16:49 Review of Systems Review of Systems: Constitutional : No Fever, No Chills, No Night Sweats, No weight loss/gain ENT/Mouth : No Ear drainage, No Nasal Congestion/Rhinorrhea Eyes: No Swelling, No Redness, No Discharge Cardiovascular : No Chest Pain, No SOB, No Dyspnea on Exertion, No Orthopnea, No Palpitations Respiratory : No Cough, No Sputum, No Wheezing, No Dyspnea Gastrointestinal : + Nausea, + Vomiting, No Diarrhea, No Constipation, No abdominal Pain, No Hematochezia, No Melena Skin : No rashes, No lesions Neuro : + Dizziness, No Focal weakness, No Loss of Consciousness, No Dizziness Yes Other (Limited due to history of Parkinson's/dementia received from Daughter ) [facility] Past Medical History Attestation statement: The following information was validated with the patient. Medical History History of DVT (deep vein thrombosis) Parkinson disease Parkinson's disease dementia Surgical History Hx of section Hx of knee surgery Social History Social History Household Members: Children Housing: Unknown / Unable to assess Alcohol intake: never Smoking Status: Never smoker Use of substances other than those prescribed or required for medical reasons: No Advance Directives: No Advance Directives Information Provided: No service: No Current occupational status: disabled Physical Exam Vital Signs: Vital Signs: Last Vital Signs Temp 98.1 F 10/04/20 16:22 Pulse 92 10/04/20 16:22 Resp 15 10/04/20 16:22 BP 120/55 L 10/04/20 16:22 Pulse Ox 100 10/04/20 16:22 Body Mass Index 25.0 Vital signs have been reviewed as normal and appeared to be correct. Blood pressure low. Heart rate normal. Respiration rate normal. Temperature normal. Oxygen saturation normal. Appearance: Alert. Pleasantly confused. No acute distress. Head: Normal external exam. Normocephalic. Atraumatic. Able to rotate head bilaterally. Eyes: PERRLA. EOMI. No nystagmus noted. Conjunctiva and sclera normal. Eyelids normal. Corneal reflex normal. ENT: EAC normal. TM's Normal. Hearing normal. Pharynx normal. Uvula midline. tongue midline. Moist mucous membranes. No trismus noted. No drooling noted. No muffled voice noted. No nystagmus noted. Neck: Normal inspection. Neck supple. FROM. No adenopathy. Trachea midline. Thyroid Normal. No meningeal signs. No neck mass noted. CVS: Normal heart rate and rhythm. Heart sound normal. No murmurs noted. Pulses normal throughout. Respiratory: No respiratory distress. Painless inspiration. Breath sounds normal. No wheezes/rales/rhonchi noted. Chest nontender. No accessory muscle usage noted or decreased air movement noted. Abdomen: Soft and nontender. Bowel sounds normal in all 4 quadrants. No distention noted. No organomegaly noted. No visible injury noted. Back: No CVA tenderness. Full range of motion noted. Skin: Patient is noted to have different stage ecchymosis to bilateral lower extremities. Otherwise the rest of the skin is warm and dry. Normal skin color. Normal skin turgor. No rashes/lesions/lacerations noted. Extremities: No lower extremity edema. Extremities exhibit normal range of motion. Extremities nontender. Able to shrug shoulders bilaterally and keep up against resistance. Neuro: Alert. Pleasantly confused. No motor deficit. No sensory deficit. Reflexes normal. Moving all extremities. No focal motor deficits. Cranial nerves II-XI intact bilaterally. Facial strength normal. Normal cognition. Speech normal. Gait normal. Strength 5/5 throughout. No pronator drift. No tremor noted. No fasciculations noted. No rigidity noted. Muscle tone normal throughout. No asterixis noted. [id number] test normal. Heel to austin test normal. Tandem gait normal. Does not sway with eyes open. Romberg test negative. Rapid alternating movement upper extremity normal. Rapid alternating movement lower extremity normal. Hand drop from overhead Misses face. NIHSS score 0. NIH Stroke Scale Internal: Initial- Upon Arrival Time: 13:35 Level of Consciousness: Alert Level of Consciousness Questions: Answers both questions correctly (for hx of dementia ) Level of Consciousness Commands: Performs both tasks correctly Best Gaze: Normal Visual: No visual loss Facial Palsy: Normal Motor Arm (Right): No drift Motor Arm (Left): No drift Motor Leg (Right): No drift Motor Leg (Left): No drift Limb Ataxia: Absent Sensory: Normal Best Language: No aphasia Dysarthia: Normal Extinction and Inattention: No abnormality Score: 0 Course Course Course Narrative: 13:35pm - 70-year-old female with a past medical history of 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 Tilley), chronically on ciprofloxacin, nephrolithiasis and osteopenia presenting to the ED via EMS after being at the Coumadin clinic prior to arrival and having a near syncopal episode with associated N/V and dizziness witnessed by her daughter and bystanders. - On arrival patient is pleasantly confused. Hypotensive at 98/68 otherwise all other vitals are within normal limits. Not in any acute distress. Nontoxic appearing. No signs of dehydration. No focal neuro deficits noted. NIH SS score is 0 at this time. No tPA indicated as patient is currently on Coumadin and just took it this morning along with no focal neural deficits and non disabling symptoms. - Concern for vasovagal vs electrolyte abnormality vs SAH - Plan: Labs, CXR, EKG, CT scan of brain/cervical spine, orthostatic vitals. Provide a L of IV fluids and re-evaluate. Reevaluation(s) Reevaluation #1: - WBC 61959 - troponin 7.8 - PT INR 17.7/1.5 - BUN 23 - otherwise all other labs are within normal limits. Patient negative for COVID/RSV/flu. - orthostatic vitals within normal limits/negative. - EKG is normal sinus rhythm with LVH similar when compared to prior EKG. - CXR WNL no acute processes noted. - CT scan of brain revealed chronic changes no acute processes noted. - CT cervical spine revealed chronic changes no acute processes noted. - still awaiting UA. - will repeat a troponin at 16:35 then re-evaluate. Time: 15:10 Reevaluation #2: - I discussed this patient with Dr. Huber the hospitalist for possible admission although it appears that patient had vasovagal near-syncope and daughter agrees with that. Therefore patient will not be admitted at this time. Will DC home with instructions return if any new or worsening symptoms due to 2nd troponin negative delta and to follow-up with primary care provider. Patient and daughter who I spoke to understands agrees with the plan. Time: 17:55 MDM - Dizziness Medical Records Attestation: I reviewed the patient's medical records. Lab Data Attestation: I reviewed the patient's lab results. Result diagrams: 10/04/20 13:36 10/04/20 13:36 Labs: Lab Results 10/04/20 10/04/20 10/04/20 Range/Units 13:06 13:36 13:36 WBC 11.7 H (4.8-10.8) X10*3/uL RBC 4.06 L D (4.20-5.50) X10*6/uL Hgb 13.2 D (12.0-16.0) g/dl Hct 39.7 D (37-47) % MCV 97.8 (80-98) fL MCH 32.5 (27.0-33.0) pg MCHC 33.2 (31.0-35.0) g/dl RDW 12.7 (11.0-16.0) % Plt Count 258 (160-400) X10*3/uL MPV 10.8 (9.4-12.3) fL Immature Gran % (Auto) 0.3 (0.0-0.4) % Neut % (Auto) 84.5 H (45-73) % Lymph % (Auto) 8.3 L (20-40) % [place] % (Auto) 6.6 (2-11) % Eos % (Auto) 0.1 (0-4) % Baso % (Auto) 0.2 (0-2) % Lymph # (Auto) 1.0 L (1.2-4.9) X10*3/uL [place] # (Auto) 0.8 (0.1-1.2) X10*3/uL Eos # (Auto) 0.0 (0.0-0.4) X10*3/uL Baso # (Auto) 0.0 (0.0-0.2) X10*3/uL Abs Immat Gran (auto) 0.04 H (0.00-0.03) X10*3/uL Absolute Neuts (auto) 9.9 H (2.0-8.3) X10*3/uL Absolute Nucleated RBC 0.000 (0.0-0.012) X10*3/uL Nucleated RBC % (auto) 0.0 (0.0-0.2) /100WBC PT (10.8-13.0) SEC INR (0.9-1.1) Sodium 145 (135-145) mmol/L Potassium 4.2 (3.3-5.1) mmol/L Chloride 108 (96-108) mmol/L Carbon Dioxide 23 (22-29) mmol/L Anion Gap 18 (12-20) BUN 23 H (9-16) mg/dL Creatinine 1.34 (0.5-1.4) mg/dL Estim Creat Clear Calc 26.4 Estimated GFR 39 POC Glucose 144 H (60-115) mg/dL Random Glucose 151 H D (60-115) mg/dL Calcium 9.0 D (8.4-10.2) mg/dL Magnesium 2.3 (1.6-2.6) mg/dL Total Bilirubin 0.6 (0.0-1.0) mg/dL Direct Bilirubin 0.2 (0.0-0.5) mg/dL AST 24 D (5-31) U/L ALT 12 (0-31) U/L Alkaline Phosphatase 89 D (39-117) U/L Total Creatine Kinase 59 (26-140) U/L Troponin I High Sens (<3.5-17.0) ng/L B-Natriuretic Peptide (<100) pg/mL Total Protein 7.1 (6.5-8.0) g/dL Albumin 4.1 D (3.5-5.0) g/dL Urine Color Urine Appearance Urine pH (5.0-8.0) Ur Specific [place] (1.005-1.025) Urine Protein (NEG-TRACE) MG/DL Urine Glucose (UA) (NEG) MG/DL Urine Ketones (NEG) MG/DL Urine Blood (NEG) Urine Nitrite (NEG) Ur Leukocyte Esterase (NEG) Ethyl Alcohol mg/dL Coronavirus (PCR) (Negative) Influenza Type A (PCR) (Negative) Influenza Type B (PCR) (Negative) RSV RNA Qual (PCR) (Negative) 10/04/20 10/04/20 10/04/20 Range/Units 13:36 13:36 13:36 WBC (4.8-10.8) X10*3/uL RBC (4.20-5.50) X10*6/uL Hgb (12.0-16.0) g/dl Hct (37-47) % MCV (80-98) fL MCH (27.0-33.0) pg MCHC (31.0-35.0) g/dl RDW (11.0-16.0) % Plt Count (160-400) X10*3/uL MPV (9.4-12.3) fL Immature Gran % (Auto) (0.0-0.4) % Neut % (Auto) (45-73) % Lymph % (Auto) (20-40) % [place] % (Auto) (2-11) % Eos % (Auto) (0-4) % Baso % (Auto) (0-2) % Lymph # (Auto) (1.2-4.9) X10*3/uL [place] # (Auto) (0.1-1.2) X10*3/uL Eos # (Auto) (0.0-0.4) X10*3/uL Baso # (Auto) (0.0-0.2) X10*3/uL Abs Immat Gran (auto) (0.00-0.03) X10*3/uL Absolute Neuts (auto) (2.0-8.3) X10*3/uL Absolute Nucleated RBC (0.0-0.012) X10*3/uL Nucleated RBC % (auto) (0.0-0.2) /100WBC PT 17.7 H (10.8-13.0) SEC INR 1.5 H (0.9-1.1) Sodium (135-145) mmol/L Potassium (3.3-5.1) mmol/L Chloride (96-108) mmol/L Carbon Dioxide (22-29) mmol/L Anion Gap (12-20) BUN (9-16) mg/dL Creatinine (0.5-1.4) mg/dL Estim Creat Clear Calc Estimated GFR POC Glucose (60-115) mg/dL Random Glucose (60-115) mg/dL Calcium (8.4-10.2) mg/dL Magnesium (1.6-2.6) mg/dL Total Bilirubin (0.0-1.0) mg/dL Direct Bilirubin (0.0-0.5) mg/dL AST (5-31) U/L ALT (0-31) U/L Alkaline Phosphatase (39-117) U/L Total Creatine Kinase (26-140) U/L Troponin I High Sens 7.8 D (<3.5-17.0) ng/L B-Natriuretic Peptide 182 H (<100) pg/mL Total Protein (6.5-8.0) g/dL Albumin (3.5-5.0) g/dL Urine Color Urine Appearance Urine pH (5.0-8.0) Ur Specific [place] (1.005-1.025) Urine Protein (NEG-TRACE) MG/DL Urine Glucose (UA) (NEG) MG/DL Urine Ketones (NEG) MG/DL Urine Blood (NEG) Urine Nitrite (NEG) Ur Leukocyte Esterase (NEG) Ethyl Alcohol mg/dL Coronavirus (PCR) NEGATIVE (Negative) Influenza Type A (PCR) NEGATIVE (Negative) Influenza Type B (PCR) NEGATIVE (Negative) RSV RNA Qual (PCR) NEGATIVE (Negative) 10/04/20 10/04/20 10/04/20 Range/Units 13:37 16:43 16:58 WBC (4.8-10.8) X10*3/uL RBC (4.20-5.50) X10*6/uL Hgb (12.0-16.0) g/dl Hct (37-47) % MCV (80-98) fL MCH (27.0-33.0) pg MCHC (31.0-35.0) g/dl RDW (11.0-16.0) % Plt Count (160-400) X10*3/uL MPV (9.4-12.3) fL Immature Gran % (Auto) (0.0-0.4) % Neut % (Auto) (45-73) % Lymph % (Auto) (20-40) % [place] % (Auto) (2-11) % Eos % (Auto) (0-4) % Baso % (Auto) (0-2) % Lymph # (Auto) (1.2-4.9) X10*3/uL [place] # (Auto) (0.1-1.2) X10*3/uL Eos # (Auto) (0.0-0.4) X10*3/uL Baso # (Auto) (0.0-0.2) X10*3/uL Abs Immat Gran (auto) (0.00-0.03) X10*3/uL Absolute Neuts (auto) (2.0-8.3) X10*3/uL Absolute Nucleated RBC (0.0-0.012) X10*3/uL Nucleated RBC % (auto) (0.0-0.2) /100WBC PT (10.8-13.0) SEC INR (0.9-1.1) Sodium (135-145) mmol/L Potassium (3.3-5.1) mmol/L Chloride (96-108) mmol/L Carbon Dioxide (22-29) mmol/L Anion Gap (12-20) BUN (9-16) mg/dL Creatinine (0.5-1.4) mg/dL Estim Creat Clear Calc Estimated GFR POC Glucose (60-115) mg/dL Random Glucose (60-115) mg/dL Calcium (8.4-10.2) mg/dL Magnesium (1.6-2.6) mg/dL Total Bilirubin (0.0-1.0) mg/dL Direct Bilirubin (0.0-0.5) mg/dL AST (5-31) U/L ALT (0-31) U/L Alkaline Phosphatase (39-117) U/L Total Creatine Kinase (26-140) U/L Troponin I High Sens 10.2 (<3.5-17.0) ng/L B-Natriuretic Peptide (<100) pg/mL Total Protein (6.5-8.0) g/dL Albumin (3.5-5.0) g/dL Urine Color YELLOW Urine Appearance CLEAR Urine pH 6.5 (5.0-8.0) Ur Specific [place] 1.025 (1.005-1.025) Urine Protein NEG (NEG-TRACE) MG/DL Urine Glucose (UA) NEG (NEG) MG/DL Urine Ketones 5 (NEG) MG/DL Urine Blood NEG (NEG) Urine Nitrite NEG (NEG) Ur Leukocyte Esterase NEG (NEG) Ethyl Alcohol < 10 mg/dL Coronavirus (PCR) (Negative) Influenza Type A (PCR) (Negative) Influenza Type B (PCR) (Negative) RSV RNA Qual (PCR) (Negative) Imaging Data Chest x-ray: Attestation: I personally reviewed and interpreted this imaging study as follows: Radiologist's impression: FINDINGS: No significant abnormality is noted involving the heart, lungs, mediastinum, bony thorax or soft tissues. XR/XR chest 2V IMPRESSION: No acute cardiopulmonary process. CT scan of brain without contrast: Attestation: I personally reviewed and interpreted this imaging study as follows: Radiologist's impression: FINDINGS: There is no intracranial hemorrhage, hematoma, or extra-axial fluid collection. The ventricles are normal in size. There is no hydrocephalus, edema, or mass effect. There is some accentuation of the cortical sulci, fissures, and cisterns similar to prior study. Again, there is periventricular white matter gliosis most adjacent to frontal horns, slightly greater on right. There is bilateral punctate anterior external capsule lacunar infarct again seen. There is no visible acute territorial infarct or mass lesion. The calvarium appears intact. There is no pneumocephalus or orbital emphysema. The sinuses and middle ears and mastoids show no air-fluid levels. Again, there is retention cyst or polyp left maxillary sinus approximately 1.5 cm and new smaller polyp or cyst right maxillary sinus 0.[address]/CT head/brain wo con IMPRESSION: No acute intracranial abnormality. CT cervical spine: Attestation: I personally reviewed and interpreted this imaging study as follows: Radiologist's impression: FINDINGS: There is no vertebral compression fracture, fracture line, spondylolisthesis, or prevertebral soft tissue swelling. The craniocervical junction appears normal. The odontoid appears intact. There is reversal cervical lordosis which is chronic finding. There are degenerative changes again seen between anterior arch C1 and the dens. There are multilevel degenerative disc changes greatest at C5-C6 and also at C4-C5 and C6-C7, with disc narrowing and vertebral spurring. There is no perched facet. Subcentimeter circumscribed cyst left T2 posterior element is stable. No paraspinal soft tissue swelling. No apical pneumothorax or subcutaneous emphysema. CT/CT cervical spine wo con IMPRESSION: 1. No acute bony abnormality or prevertebral soft tissue swelling. 2. Chronic reversal cervical lordosis with multilevel degenerative changes. ECG Data Attestation: I personally reviewed and interpreted this ECG as follows: ECG interpretation date: 10/04/20 ECG interpretation time: 13:02 Interpretation: Normal sinus rhythm with ventricular rate of 91 with LVH no acute ischemic changes noted. Similar when compared to prior EKG on 06/11/2020 Critical Care Time Critical Care Time Critical Care Time: Yes Total Critical Care Time: 60 Attestation: I personally attest to this time spent taking care of the patient Discharge Plan Discharge Clinical Impression: Vasovagal syncope Patient Disposition: Home, Self-Care Instructions: Syncope (ED) Prescriptions: No Action quetiapine 25 mg tablet 25 mg PO BID RF: 0 cetirizine 10 mg tablet 10 mg PO DAILY PRN (Reason: allergies) RF: 0 clonazepam 0.5 mg tablet 0.5 mg PO BID PRN (Reason: anxiety) RF: 0 warfarin 2.5 mg tablet 2.5 tab PO DAILY@1600 RF: 0 paroxetine HCl 20 mg tablet 20 mg PO QAM RF: 0 pramipexole 0.25 mg tablet 0.25 mg PO TID RF: 0 omeprazole 20 mg capsule,delayed release(DR/EC) 20 mg PO DAILY RF: 0 multivitamin Tablet 1 tab PO DAILY RF: 0 carbidopa-levodopa 25-100 mg tablet 2 tab PO 0700,1100,1500,1900 RF: 0 cefuroxime axetil 250 mg tablet 250 mg PO Q12H Qty: 6 RF: 0 nitrofurantoin macrocrystal 50 mg capsule 50 mg PO BEDTIME Qty: 0 RF: 0 amoxicillin-pot clavulanate [Augmentin] 875-125 mg tablet 1 tab PO BID 7 Days Qty: 14 RF: 0 Referrals: Mirella Medina DO [Primary Care Provider] - 2 days Print Language: Thai
[2020-10-04 13:43] LABS: MANUAL DIFF FLAG NO
[2020-10-04 13:44] LABS: Basophils Percent Auto 0.2 % (0-2); Eosinophils Percent Auto 0.1 % (0-4); Hematocrit 39.7 % (37-47); Hemoglobin 13.2 g/dl (12.0-16.0); Imm Gran Abs Auto 0.04 X10*3/uL (0.00-0.03); Imm Gran Pct Auto 0.3 % (0.0-0.4); Lymphocytes Percent Auto 8.3 % (20-40); Mean Corpuscular HGB Conc 33.2 g/dl (31.0-35.0); Mean Corpuscular Hemoglobin 32.5 pg (27.0-33.0); Mean Corpuscular Volume 97.8 fL (80-98); Mean Platelet Volume 10.8 fL (9.4-12.3); Monocytes Absolute Auto 0.8 X10*3/uL (0.1-1.2); Monocytes Percent Auto 6.6 % (2-11); Neutrophils Absolute Auto 9.9 X10*3/uL (2.0-8.3); Neutrophils Percent Auto 84.5 % (45-73); Platelet Count 258 X10*3/uL (160-400); Red Blood Count 4.06 X10*6/uL (4.20-5.50); Red Cell Distribution Width 12.7 % (11.0-16.0); White Blood Count 11.7 X10*3/uL (4.8-10.8)
[2020-10-04 13:51] LABS: INTERNATIONAL NORM RATIO 1.5 (0.9-1.1); Prothrombin Time 17.7 SEC (10.8-13.0)
[2020-10-04 14:06] LABS: Ethanol < 10 mg/dL
[2020-10-04 14:08] LABS: Alanine Aminotransferase 12 U/L (0-31); Albumin Level 4.1 g/dL (3.5-5.0); Alkaline Phosphatase 89 U/L (39-117); Anion Gap 18 (12-20); Aspartate Amino Transferase 24 U/L (5-31); Bilirubin Direct 0.2 mg/dL (0.0-0.5); Bilirubin Total 0.6 mg/dL (0.0-1.0); Blood Urea Nitrogen 23 mg/dL (9-16); Carbon Dioxide 23 mmol/L (22-29); Chloride 108 mmol/L (96-108); Creatinine Clr Calc Pharmacy 26.4; Estimated Glomerular Filt Rate 39; Glucose Random 151 mg/dL (60-115); Magnesium 2.3 mg/dL (1.6-2.6); Potassium 4.2 mmol/L (3.3-5.1); Sodium 145 mmol/L (135-145); Total Protein 7.1 g/dL (6.5-8.0)
[2020-10-04 14:15] LABS: B Type Natriuretic Peptide 182 pg/mL (<100); Troponin-I High Sensitivity 7.8 ng/L (<3.5-17.0)
[2020-10-04] MEDS: 0.9 % Sodium Chloride 1,000 ML 999 ML IVCONT (14:17)
[2020-10-04 14:24] VITALS: PULSE 88; O2SAT 97
[2020-10-04 14:25] LABS: Influenza A PCR NEGATIVE (Negative); Influenza B PCR NEGATIVE (Negative); Resp Syncy Virus RNA Qual PCR NEGATIVE (Negative); SARS COV2 PCR INHOUSE NEGATIVE (Negative)
[2020-10-04 14:28] VITALS: BP 111/42; PULSE 88; RESP 16; O2SAT 97
[2020-10-04 15:01] VITALS: BP 108/65; BP 112/61; PULSE 85; PULSE 92
[2020-10-04 15:07] VITALS: BP 101/62; PULSE 69
[2020-10-04 16:22] VITALS: BP 120/55; PULSE 92; RESP 15; TEMP 36.7; O2SAT 100
[2020-10-04 16:50] LABS: Glucose Urine UA NEG (NEG); Leukocyte Esterase Urine NEG (NEG); Nitrite Urine NEG (NEG); PH 6.5 (5.0-8.0); Specific Gravity - Urine 1.025 (1.005-1.025); Urine Blood NEG (NEG); Urine Ketones 5 MG/DL (NEG); Urine Protein NEG (NEG-TRACE)
[2020-10-04 16:51] LABS: Appearance Urine CLEAR; Color Urine YELLOW
[2020-10-04 17:30] LABS: Troponin-I High Sensitivity 10.2 ng/L (<3.5-17.0)
== END 2020-10-04 18:33 | disposition home or self-care (01) ==
PROVIDERS: Physician Assistant Medical; Emergency Provider Emergency Medicine; PCP Internal Medicine
DX: R55 Syncope and collapse (principal); Z20.822 Contact with and (suspected) exposure to COVID-19; G20 Parkinson's disease; F02.80 Dementia in other diseases classified elsewhere, unspecified severity, without behavioral disturbance, psychotic disturbance, mood disturbance, and anxiety; Z86.711 Personal history of pulmonary embolism; Z86.718 Personal history of other venous thrombosis and embolism; Z87.440 Personal history of urinary (tract) infections; Z79.01 Long term (current) use of anticoagulants
CPT/HCPCS: 0241U; 36415; 70450; 71046; 72125; 80048; 80076; 80320; 81003; 82550; 82947; 83735; 83880; 84484; 85025; 85610; 93005; 96360; 99285; 99291

== ENCOUNTER 2020-10-22 08:54 | Day surgery (SDC) | payer OTHER, SELFPAY ==
[2020-10-16 15:51] VITALS: BMI 29.8
[2020-10-22] VITALS (7 sets, daily range): BP systolic 146–187; BP diastolic 52–98; PULSE 64–83; RESP 12–18; TEMP 36.8–37.1; O2SAT 96–100
[2020-10-22] MEDS: levoFLOXacin 500 MG TABLET PO (12:25)
--- NOTE | 2020-10-22 12:32 | HO.ANESPROP2 ---
[facility] Active Problems Active Problems: All Active Problems (Updated 10/16/20 @ 15:51 by Whitley Garrett) Acute UTI (Acute) Acute dehydration (Acute) CARMEN (acute kidney injury) (Acute) Encephalopathy (Acute) Nephrolithiasis (Acute) Dementia (Acute) Varicose veins of both lower extremities (Acute) Stress incontinence (Acute) Recurrent UTI (Acute) Depressive disorder (Acute) Osteopenia (Acute) Pulmonary embolus (Acute) Current use of extermination supervisor anticoagulation (Acute) History of DVT (deep vein thrombosis) (Acute) Parkinson disease (Acute) Past Medical History Medical History (Updated 10/16/20 @ 15:51 by Whitley Garrett) Anxiety Depression GERD (gastroesophageal reflux disease) History of atrial fibrillation History of DVT (deep vein thrombosis) Hx of sepsis Kidney stones Parkinson disease Parkinson's disease dementia Scoliosis Surgical History Surgical History (Updated 10/16/20 @ 15:46 by Whitley Garrett) History of cystoscopy History of lithotripsy Hx of section Hx of knee surgery Social History Social History Household Members: Children Housing: Unknown / Unable to assess Are you a primary associate director career services to a significant other at home: No Do you presently have visiting nurse or other home services: Yes (Home Health Aid) Alcohol intake: never Smoking Status: Never smoker Second Hand Smoke Exposure: No Use of substances other than those prescribed or required for medical reasons: No Have you been hit, kicked, punched, or otherwise hurt by someone within the past year? If so, by whom?: No Advance Directives: No Advance Directives Information Provided: No Advance Directives on File: No Recently lost weight without trying: No service: No Current occupational status: disabled Meds Allergies Allergy/AdvReac Type Severity Reaction Status Date / Time amoxicillin [AMOXICILLIN] Allergy Unknown Rash Verified 10/22/20 11:00 Active Medications: Current Medications Generic Name Dose Route Start Last Admin Trade Name Freq PRN Reason Stop Dose Admin Lactated Ringer's 1,000 mls @ 50 mls/hr 10/22/20 12:45 Lr IV .Q20H [facility] Home Medications Medication Instructions Recorded Confirmed Last Taken Type carbidopa-levodopa 2 tab PO 0700,1100,1500,1900 06/12/20 10/16/20 06/11/20 History cetirizine 10 mg PO DAILY PRN 06/12/20 10/16/20 06/11/20 History clonazepam 0.5 mg PO BID PRN 06/12/20 10/16/20 06/11/20 History multivitamin 1 tab PO DAILY 06/12/20 10/16/20 06/11/20 History omeprazole 20 mg PO DAILY 06/12/20 10/16/20 06/10/20 History paroxetine HCl 20 mg PO QAM 06/12/20 10/16/20 06/10/20 History pramipexole 0.25 mg PO TID 06/12/20 10/16/20 06/11/20 History quetiapine 25 mg PO BID 06/12/20 10/16/20 06/11/20 History warfarin 2.5 tab PO DAILY@1600 06/12/20 10/22/20 10/17/20 History enoxaparin SUBCUT 10/16/20 10/21/20 11:00 History Exam Exam Date and Time: October 22, 2020 1232 Height,Weight and Vital Signs: Height 4 ft 9 in Weight 62.596 kg Last Vital Signs Temp 98.8 F 10/22/20 12:17 Pulse 69 10/22/20 12:17 Resp 18 10/22/20 12:17 BP 154/85 H 10/22/20 12:17 Pulse Ox 98 10/22/20 12:17 Airway Mallampati Class: III (Missing multiple teeth) TM Dist: <=3cm Neck ROM: Full Heart: RRr Lungs: CtA BL Assessment and Plan Assessment Anesthesia Assessment: Anesthesia Plan Discussed and Chart Reviewed Final Anesthetic Review NPO: Yes ASA Class: III Final Preanesthetic Review: No Changes in Pt Med Stat and Consent Obtained/Reviewed Patient Risk: Intermediate Procedure Risk: Intermediate Anesthetic Plan Anesthetic Plan: GA Disposition: Standard PACU
[2020-10-22 12:35] LABS: INTERNATIONAL NORM RATIO 1.1 (0.9-1.1); Prothrombin Time 13.4 SEC (10.8-13.0)
--- NOTE | 2020-10-22 12:36 | MHC.SHP ---
Pre-Procedural Eval Section A The patient is an INPATIENT: No Changes since office visit: No Cold of Flu in the past 2 weeks, No New Medical Problems, No Changes in Medication and No Patient answered all questions The History & Physical has been completed within 30 days and I have reviewed it.: Yes Section B Chief Complaint: kidney stone Allergies: Allergies Allergy/AdvReac Type Severity Reaction Status Date / Time amoxicillin [AMOXICILLIN] Allergy Unknown Rash Verified 10/22/20 11:00 Plan Diagnosis/Plan: Unchanged I have reviewed the history and physical and performed a pertinent physical examination on my patient. No changes have occurred unless specified. Cystoscopy, left retrograde, left ureteroscopy laser lithotripsy stone basketing stent placement
--- NOTE | 2020-10-22 13:23 | MHC.SHP ---
Pre-Procedural Eval Section A The patient is an INPATIENT: No Changes since office visit: No Cold of Flu in the past 2 weeks, No New Medical Problems, No Changes in Medication and No Patient answered all questions The History & Physical has been completed within 30 days and I have reviewed it.: Yes Section B Chief Complaint: kidney stone Allergies: Allergies Allergy/AdvReac Type Severity Reaction Status Date / Time amoxicillin [AMOXICILLIN] Allergy Unknown Rash Verified 10/22/20 11:00 Plan Diagnosis/Plan: Unchanged I have reviewed the history and physical and performed a pertinent physical examination on my patient. No changes have occurred unless specified. Cystoscopy, left retrograde, left renal ureteroscopy laser lithotripsy stent placement
[2020-10-22] MEDS: Lactated Ringers 1,000 ML 50 ML IV (13:37)
--- NOTE | 2020-10-22 14:18 | PM.OP ---
Brief Operative Note Date of Service: 10/22/20 Pre-op diagnosis: Left renal stone Post-op diagnosis: same Procedure: Cystoscopy left retrograde Dilatation left ureteric orifice under fluoroscopy Left flexible renal us copy, laser lithotripsy, stone basketing Left ureteric stent placement Implants: Six Indonesian by 20 cm double-J catheter Surgeon: Rodríguez Tilley MD Anesthesia: GLMA Estimated blood loss (mL): 0 Pathology: other (Stones) Condition: stable Disposition: same day
--- NOTE | 2020-10-22 14:20 | P.OP_ITS ---
Operative Note Operative Note Date of Service: 10/22/20 Narrative: PreOperative Diagnosis: Left renal stone Post Operative Diagnosis: Left renal stone Procedure: - cystoscopy, left retrograde - dilatation of ureteric orifice under fluoroscopy - left ureteroscopy, laser lithotripsy, stone basketing - left stent placement Surgeon: Dr Rodríguez Tilley Anesthesia: General Indications for procedure: 70-year-old female with recurring UTI found to have 2 x 6 mm stones on the left. These will be removed. No guarantee this will manage her UTIs which may well be due to constipation incomplete bladder emptying. Procedure: After informed consent was verified patient was brought to the operating placed in supine position. Anesthesia was administered per protocol. Patient was placed in modified dorsal lithotomy position and prepped and draped in a sterile fashion. Safety pause time-out and side of surgery confirmed. Antibiotics confirmed. A 22 Brazilian rigid cystoscope was placed. The bladder was normal in appearance. The left ureter was cannulated and retrograde examination performed. No filling defect within the ureteral visible within the kidney. A sensor guidewire was placed up to the level of the renal kidney The internal cannula from the ureteric access sheath was placed. This was then removed after dilating enteric office. The access sheath placed. A flexible ureteral scope was placed up to level the renal pelvis. Renal pelvis examined in its entirety. There was a stone bundled together in the mid pole. This was broken using the holmium laser. A a Zero tip basket was used to remove fragments were sent for pathology. Completion the procedure sensor guidewire was placed up to the renal pelvis. A 6 Brazilian by 20 cm double-J ureteric catheter was placed with good visualization on fluoroscopy in direct visualization. She was extubated in operating room transferred in stable condition recovery area Pathology: Stones Drains: 6 Brazilian by 20 cm left double-J ureteric catheter
[2020-10-22] MEDS: Phenazopyridine HCL 100 MG TABLET PO (15:22)
[2020-10-22] MEDS: Acetaminophen 325 MG TABLET 650 MG PO (15:23)
[2020-10-25 14:52] LABS: Stone Source URETHRAL
== END 2020-10-22 16:04 | disposition home or self-care (01) ==
PROVIDERS: Anesthesiology; PCP Internal Medicine; Visit Provider Urology
PROC: (CPT 52356; principal; 2020-10-22 11:00)
DX: N20.0 Calculus of kidney (principal); N39.0 Urinary tract infection, site not specified; Z87.442 Personal history of urinary calculi; Z87.440 Personal history of urinary (tract) infections; G20 Parkinson's disease; F02.80 Dementia in other diseases classified elsewhere, unspecified severity, without behavioral disturbance, psychotic disturbance, mood disturbance, and anxiety; Z86.718 Personal history of other venous thrombosis and embolism; Z79.01 Long term (current) use of anticoagulants; Z79.899 Other long term (current) drug therapy; Z86.19 Personal history of other infectious and parasitic diseases; Z88.0 Allergy status to penicillin
CPT/HCPCS: 52356; 36415; 82365; 85610; 88300; C1758; C1769; C1894; J1100; J1885; J2405; J3010; Q9967

== ENCOUNTER → 2020-11-07 09:12 | Outpatient (BNVA) | payer OTHER, SELFPAY | PROVIDERS: PCP Surgery Vascular Surgery; Visit Provider Urology | DX: N20.0 Calculus of kidney (principal) | CPT/HCPCS: 52310; 99212 ==

== ENCOUNTER 2021-02-01 15:38 | Inpatient (IN) | payer OTHER, SELFPAY ==
--- NOTE | ~2021-02-01 | CT_ITS ---
EXAMINATION: CT HEAD WITHOUT CONTRAST CLINICAL INFORMATION: Altered mental status. COMPARISON: CT scan of the head 10/04/2020. TECHNIQUE: Contiguous axial imaging was performed from the skull base to vertex without intravenous administration of contrast. This CT examination was performed using dose optimization techniques as appropriate, variously including the following: *Automated exposure control *Adjustment of mA and/or kV according to patient size (this includes techniques or standardized protocols for targeted exams where dose is matched to indication/reason for exam; i.e. extremities or head) *Use of iterative reconstruction technique DLP: 633 mGy-cm FINDINGS: There is no acute intracranial hemorrhage or abnormal extra-axial collection. No intracranial mass effect or midline shift. Scattered nonspecific foci of hypoattenuation are visualized within the periventricular white matter. Herrera-white matter differentiation is otherwise preserved and there is no evidence of acute territorial infarct. The calvarium and skull base are intact. Mastoid air cells and middle ear cavities are well aerated. Retention cysts are visualized within the alveolar recesses of maxillary sinuses and there is mild mucosal thickening within ethmoid air cells. Globes and orbits are symmetric. CT/CT head/brain wo con IMPRESSION: There are scattered chronic small vessel ischemic changes within the periventricular white matter. No evidence of acute territorial infarct or hemorrhage.
--- NOTE | ~2021-02-01 | XR_ITS ---
EXAMINATION: PORTABLE CHEST 1 VIEW CLINICAL INFORMATION: AMS . COMPARISON: 10/04/2020. TECHNIQUE: Portable frontal view of the chest was obtained. FINDINGS: The lungs are well expanded. No focal infiltrate, effusion, edema, or pneumothorax. Cardiac and mediastinal silhouettes are within normal limits for technique. No acute bony abnormality seen. XR/XR chest 1V IMPRESSION: No evidence of acute disease compared to 10/04/2020.
[2021-02-01 16:42] VITALS: BP 138/58; PULSE 79; RESP 18; TEMP 36.9; O2SAT 94; BMI 27.4
[2021-02-01 19:20] VITALS: BP 175/92; PULSE 73; RESP 18; TEMP 36.6; O2SAT 97
--- NOTE | 2021-02-01 19:21 | ECG_ITS ---
Test Reason : AMS Blood Pressure : / mmHG Vent. Rate : 069 BPM Atrial Rate : 069 BPM P-R Int : 138 ms QRS Dur : 072 ms QT Int : 402 ms P-R-T Axes : 021 006 034 degrees QTc Int : 430 ms Sinus rhythm with Premature atrial complexes Otherwise normal ECG When compared with ECG of 04-OCT-2020 13:02, Premature atrial complexes are now Present Referred By: Corina Shah Electronically Signed By:EDUARDO BLAKELY
--- NOTE | 2021-02-01 19:22 | PC.NURSE ---
Pt aaox2, disoriented to time and event. Pt daughter/caregiver at bedside reporting pt with increased urinary frequency and recent weakness/lethargy. Pt with hx of Parkinson's and Dementia and daughter reports change in mental status including increased lethargy since last night. Pt c/o of L flank pain to daugther [employer]. Pt NSR on engine monitor, VSS with exception of HTN as charted. Stretcher low locked, rails raised, call lopez within reach, purewick in place.
[2021-02-01 19:47] LABS: Glucose Urine UA NEG (NEG); Leukocyte Esterase Urine TRACE (NEG); Nitrite Urine POS (NEG); Specific Gravity - Urine 1.025 (1.005-1.025); UACC Culture Trigger YES; Urine Blood NEG (NEG); Urine Ketones NEG (NEG); Urine Protein NEG (NEG-TRACE)
[2021-02-01 19:51] LABS: Appearance Urine HAZY; Color Urine YELLOW
[2021-02-01 20:01] LABS: INTERNATIONAL NORM RATIO 3.4 (0.9-1.1); Prothrombin Time 40.3 SEC (10.8-13.0)
[2021-02-01 20:04] LABS: Partial Thromboplastin Time 51.8 SEC (24.1-38.0)
[2021-02-01 20:05] LABS: Bacteria Urine 2+ /LPF; RBC Urine 0 /HPF (0)
[2021-02-01 20:11] LABS: COVID-19 Test Negative (Negative); IDNOW Serial# 9DD0AD1C
--- NOTE | 2021-02-01 20:11 | PHA.MEDREC ---
Pharmacy Consult ? Medication Reconciliation Pharmacy has completed the medication reconciliation.
--- NOTE | 2021-02-01 20:12 | ED_ITS ---
HPI - Female Genitourinary General Chief complaint: Urogenital-Female Stated complaint: ?UTI Time Seen by Provider: 02/01/21 19:20 Source: family Mode of arrival: wheelchair History of Present Illness HPI Narrative: 70-year-old female with a past medical history of anxiety, depression, GERD, AFib on Coumadin, DVT, renal stones, Parkinson's, dementia, brought in with family complaining of altered mental status since this morning. Daughter reports patient more lethargic confused than normal. States patient's baseline is A&O, conversational, today has been slumped over in her wheelchair, did not recognize her doctor, slurring her words all which is new. Denies known fall/trauma, fever, cough, diarrhea/constipation, abdominal pain Related Data Home Medications Medication Instructions Recorded Confirmed carbidopa-levodopa 2 tab PO 0700,1100,1500,1900 06/12/20 02/01/21 cetirizine 10 mg PO DAILY PRN 06/12/20 02/01/21 clonazepam 0.5 mg PO BID PRN 06/12/20 02/01/21 multivitamin 1 tab PO DAILY 06/12/20 02/01/21 omeprazole 20 mg PO DAILY 06/12/20 02/01/21 paroxetine HCl 20 mg PO QAM 06/12/20 02/01/21 pramipexole 0.25 mg PO TID 06/12/20 02/01/21 quetiapine 25 mg PO BID 06/12/20 02/01/21 warfarin 2.5 tab PO DAILY@1600 06/12/20 02/01/21 Allergies Allergy/AdvReac Type Severity Reaction Status Date / Time amoxicillin [AMOXICILLIN] Allergy Unknown Rash Verified 10/22/20 11:00 Review of Systems Review of Systems: Constitutional: No Fever, No Chills, +Fatigue, No Malaise Cardiovascular: No Chest Pain, No SOB, No Edema Respiratory: No Cough, No Dyspnea Gastrointestinal: No Nausea, No Vomiting, No Diarrhea, No Constipation, No Abdominal pain Genitourinary: No Urinary Frequency, No Hematuria Musculoskeletal: No joint pain, No Myalgias, No Joint Swelling Skin: No Skin Lesions, No rash Neuro: + Weakness, +AMS Yes all other systems are reviewed and are negative PMFSH Past Medical History Attestation statement: The following information was validated with the patient. Medical History (Updated 02/01/21 @ 21:15 by RONNY Hernandez) Anxiety Depression GERD (gastroesophageal reflux disease) History of atrial fibrillation History of DVT (deep vein thrombosis) Hx of sepsis Kidney stones Parkinson disease Parkinson's disease dementia Scoliosis Surgical History History of cystoscopy History of lithotripsy Hx of section Hx of knee surgery Social History Social History Household Members: Children Household Members Other:: lives with daughter Housing: Unknown / Unable to assess Are you a primary healthcare receptionist to a significant other at home: No Do you presently have visiting nurse or other home services: Yes (Home Health Aid) Unable to assess alcohol history related to: Unknown Alcohol intake: never Second Hand Smoke Exposure: No Advance Directives: No Advance Directives Information Provided: No service: No Current occupational status: disabled Physical Exam Vital Signs: Vital Signs: Last Vital Signs Temp 97.8 F 02/01/21 19:20 Pulse 73 02/01/21 19:20 Resp 18 02/01/21 19:20 BP 175/92 H 02/01/21 19:20 Pulse Ox 97 02/01/21 19:20 Body Mass Index 27.4 Const: General: cooperative and healthy appearing Orientation/consciousness: oriented to person and oriented to place Limitations: no limitations HENMT: Head: Yes normal to inspection Ears: hearing grossly normal bilaterally General nose exam: Normal external nose present Face and sinus: Yes normal facial exam Eyes: General: appearance normal, both eyes and all related structures Pupils: Equal, round and reactive pupils present EOM: EOMs intact bilaterally Neck: Neck: Yes normal visual inspection and Yes no meningeal signs Resp: Effort & Inspection: normal respiratory effort Auscultation: clear to auscultation bilaterally Cardio: Rate: regular rate Heart sounds: S1 normal heart sound present and S2 normal heart sound present GI: Inspection: Yes normal to inspection Palpation (GI): Soft to palpation, nontender, no guarding and not rigid Skin: Rashes: no rashes Wounds: no wounds Neuro: Other: Intermittently follows commands General: oriented to person, oriented to place, tone normal, moves all extremities, no meningeal signs and CN's II-XI intact bilaterally Cranial nerves: Yes Equal, round and reactive pupils present Extrem: General: Yes normal to inspection and Yes no pedal edema Course Course Course Narrative: -no leukocytosis, H&H stable, INR mildly supratherapeutic at 3.4, lactic acid negative, UA infected >> IV Levaquin ordered based on prior urine culture results XR chest 1V IMPRESSION: No evidence of acute disease compared to 10/04/2020. CT head/brain wo con IMPRESSION: There are scattered chronic small vessel ischemic changes within the periventricular white matter. No evidence of acute territorial infarct or hemorrhage. -[id number]--patient admitted to hospitalist service for further management MDM - Female Genitourinary MDM Narrative Medical decision making narrative: 70-year-old female with a past medical history of anxiety, depression, GERD, AFib on Coumadin, DVT, renal stones, Parkinson's, dementia, brought in with family complaining of altered mental status since this morning. Daughter reports patient more lethargic confused than normal. On exam VSS, NAD, lethargic, A&O x2, intermittently following commands. Concern for infectious/metabolic abnormalities. Rule out ICH/CVA Plan: EKG, labs, UA, head CT, CXR, COVID-19 testing, reassess Lab Data Result diagrams: 02/01/21 20:21 02/01/21 20:21 Labs: Lab Results 02/01/21 02/01/21 02/01/21 Range/Units 19:25 19:25 19:26 WBC (4.8-10.8) X10*3/uL RBC (4.20-5.50) X10*6/uL Hgb (12.0-16.0) g/dl Hct (37-47) % MCV (80-98) fL MCH (27.0-33.0) pg MCHC (31.0-35.0) g/dl RDW (11.0-16.0) % Plt Count (160-400) X10*3/uL MPV (9.4-12.3) fL Immature Gran % (Auto) (0.0-0.4) % Neut % (Auto) (45-73) % Lymph % (Auto) (20-40) % [place] % (Auto) (2-11) % Eos % (Auto) (0-4) % Baso % (Auto) (0-2) % Lymph # (Auto) (1.2-4.9) X10*3/uL [place] # (Auto) (0.1-1.2) X10*3/uL Eos # (Auto) (0.0-0.4) X10*3/uL Baso # (Auto) (0.0-0.2) X10*3/uL Abs Immat Gran (auto) (0.00-0.03) X10*3/uL Absolute Neuts (auto) (2.0-8.3) X10*3/uL Absolute Nucleated RBC (0.0-0.012) X10*3/uL Nucleated RBC % (auto) (0.0-0.2) /100WBC PT (10.8-13.0) SEC INR (0.9-1.1) APTT (24.1-38.0) SEC Lactic Acid (0.5-2.0) mmol/L Troponin I High Sens (<3.5-17.0) ng/L B-Natriuretic Peptide (<100) pg/mL Urine Color YELLOW Urine Appearance HAZY Urine pH 6.0 (5.0-8.0) Ur Specific [place] 1.025 (1.005-1.025) Urine Protein NEG (NEG-TRACE) MG/DL Urine Glucose (UA) NEG (NEG) MG/DL Urine Ketones NEG (NEG) MG/DL Urine Blood NEG (NEG) Urine Nitrite POS H (NEG) Ur Leukocyte Esterase TRACE H (NEG) Urine RBC 0 (0) /HPF Urine WBC 15-29 H (0-4) /HPF Ur Squamous Epith Cells NONE /LPF Urine Bacteria 2+ /LPF Urine Opiates Screen Not Detected (Not Detect) Ur Barbiturates Screen Not Detected (Not Detect) Ur Phencyclidine Scrn Not Detected (Not Detect) Ur Amphetamines Screen Not Detected (Not Detect) U Benzodiazepines Scrn Not Detected (Not Detect) Urine Cocaine Screen Not Detected (Not Detect) U Marijuana (THC) Screen Not Detected (Not Detect) COVID-19 (FERNANDO) Negative (Negative) COVID-19 Clin Com See Note 02/01/21 02/01/21 02/01/21 Range/Units 19:47 19:47 20:21 WBC 8.3 (4.8-10.8) X10*3/uL RBC 4.05 L (4.20-5.50) X10*6/uL Hgb 13.0 (12.0-16.0) g/dl Hct 39.2 (37-47) % MCV 96.8 (80-98) fL MCH 32.1 (27.0-33.0) pg MCHC 33.2 (31.0-35.0) g/dl RDW 12.3 (11.0-16.0) % Plt Count 174 D (160-400) X10*3/uL MPV 10.9 (9.4-12.3) fL Immature Gran % (Auto) 0.2 (0.0-0.4) % Neut % (Auto) 64.3 (45-73) % Lymph % (Auto) 26.3 (20-40) % [place] % (Auto) 8.3 (2-11) % Eos % (Auto) 0.5 (0-4) % Baso % (Auto) 0.4 (0-2) % Lymph # (Auto) 2.2 (1.2-4.9) X10*3/uL [place] # (Auto) 0.7 (0.1-1.2) X10*3/uL Eos # (Auto) 0.0 (0.0-0.4) X10*3/uL Baso # (Auto) 0.0 (0.0-0.2) X10*3/uL Abs Immat Gran (auto) 0.02 (0.00-0.03) X10*3/uL Absolute Neuts (auto) 5.4 (2.0-8.3) X10*3/uL Absolute Nucleated RBC 0.000 (0.0-0.012) X10*3/uL Nucleated RBC % (auto) 0.0 (0.0-0.2) /100WBC PT 40.3 H D (10.8-13.0) SEC INR 3.4 H (0.9-1.1) APTT 51.8 H (24.1-38.0) SEC Lactic Acid 1.6 (0.5-2.0) mmol/L Troponin I High Sens (<3.5-17.0) ng/L B-Natriuretic Peptide (<100) pg/mL Urine Color Urine Appearance Urine pH (5.0-8.0) Ur Specific [place] (1.005-1.025) Urine Protein (NEG-TRACE) MG/DL Urine Glucose (UA) (NEG) MG/DL Urine Ketones (NEG) MG/DL Urine Blood (NEG) Urine Nitrite (NEG) Ur Leukocyte Esterase (NEG) Urine RBC (0) /HPF Urine WBC (0-4) /HPF Ur Squamous Epith Cells /LPF Urine Bacteria /LPF Urine Opiates Screen (Not Detect) Ur Barbiturates Screen (Not Detect) Ur Phencyclidine Scrn (Not Detect) Ur Amphetamines Screen (Not Detect) U Benzodiazepines Scrn (Not Detect) Urine Cocaine Screen (Not Detect) U Marijuana (THC) Screen (Not Detect) COVID-19 (FERNANDO) (Negative) COVID-19 Clin Com 02/01/21 Range/Units 20:21 WBC (4.8-10.8) X10*3/uL RBC (4.20-5.50) X10*6/uL Hgb (12.0-16.0) g/dl Hct (37-47) % MCV (80-98) fL MCH (27.0-33.0) pg MCHC (31.0-35.0) g/dl RDW (11.0-16.0) % Plt Count (160-400) X10*3/uL MPV (9.4-12.3) fL Immature Gran % (Auto) (0.0-0.4) % Neut % (Auto) (45-73) % Lymph % (Auto) (20-40) % [place] % (Auto) (2-11) % Eos % (Auto) (0-4) % Baso % (Auto) (0-2) % Lymph # (Auto) (1.2-4.9) X10*3/uL [place] # (Auto) (0.1-1.2) X10*3/uL Eos # (Auto) (0.0-0.4) X10*3/uL Baso # (Auto) (0.0-0.2) X10*3/uL Abs Immat Gran (auto) (0.00-0.03) X10*3/uL Absolute Neuts (auto) (2.0-8.3) X10*3/uL Absolute Nucleated RBC (0.0-0.012) X10*3/uL Nucleated RBC % (auto) (0.0-0.2) /100WBC PT (10.8-13.0) SEC INR (0.9-1.1) APTT (24.1-38.0) SEC Lactic Acid (0.5-2.0) mmol/L Troponin I High Sens < 3.5 (<3.5-17.0) ng/L B-Natriuretic Peptide 61 (<100) pg/mL Urine Color Urine Appearance Urine pH (5.0-8.0) Ur Specific [place] (1.005-1.025) Urine Protein (NEG-TRACE) MG/DL Urine Glucose (UA) (NEG) MG/DL Urine Ketones (NEG) MG/DL Urine Blood (NEG) Urine Nitrite (NEG) Ur Leukocyte Esterase (NEG) Urine RBC (0) /HPF Urine WBC (0-4) /HPF Ur Squamous Epith Cells /LPF Urine Bacteria /LPF Urine Opiates Screen (Not Detect) Ur Barbiturates Screen (Not Detect) Ur Phencyclidine Scrn (Not Detect) Ur Amphetamines Screen (Not Detect) U Benzodiazepines Scrn (Not Detect) Urine Cocaine Screen (Not Detect) U Marijuana (THC) Screen (Not Detect) COVID-19 (FERNANDO) (Negative) COVID-19 Clin Com Discharge Plan Discharge Clinical Impression: Encephalopathy, Acute UTI Patient Disposition: Admitted As Inpatient Prescriptions: No Action quetiapine 25 mg tablet 25 mg PO BID RF: 0 cetirizine 10 mg tablet 10 mg PO DAILY PRN (Reason: allergies) RF: 0 clonazepam 0.5 mg tablet 0.5 mg PO BID PRN (Reason: anxiety) RF: 0 warfarin 2.5 mg tablet 2.5 tab PO DAILY@1600 RF: 0 paroxetine HCl 20 mg tablet 20 mg PO QAM RF: 0 pramipexole 0.25 mg tablet 0.25 mg PO TID RF: 0 omeprazole 20 mg capsule,delayed release(DR/EC) 20 mg PO DAILY RF: 0 multivitamin Tablet 1 tab PO DAILY RF: 0 carbidopa-levodopa 25-100 mg tablet 2 tab PO 0700,1100,1500,1900 RF: 0
[2021-02-01 20:13] LABS: Lactic Acid 1.6 mmol/L (0.5-2.0)
[2021-02-01 20:17] LABS: Amphetamine Screen Urine Not Detected (Not Detect); Barbiturates, Urine Not Detected (Not Detect); Benzodiazepines Screen Urine Not Detected (Not Detect); Cannabinoid Screen Urine Not Detected (Not Detect); Cocaine Screen Urine Not Detected (Not Detect); Opiate Screen Urine Not Detected (Not Detect); Phencyclidine Screen Urine Not Detected (Not Detect)
[2021-02-01 20:26] LABS: MANUAL DIFF FLAG NO
[2021-02-01 20:30] LABS: Basophils Percent Auto 0.4 % (0-2); Eosinophils Percent Auto 0.5 % (0-4); Hematocrit 39.2 % (37-47); Imm Gran Abs Auto 0.02 X10*3/uL (0.00-0.03); Imm Gran Pct Auto 0.2 % (0.0-0.4); Lymphocytes Absolute Auto 2.2 X10*3/uL (1.2-4.9); Lymphocytes Percent Auto 26.3 % (20-40); Mean Corpuscular HGB Conc 33.2 g/dl (31.0-35.0); Mean Corpuscular Hemoglobin 32.1 pg (27.0-33.0); Mean Corpuscular Volume 96.8 fL (80-98); Mean Platelet Volume 10.9 fL (9.4-12.3); Monocytes Absolute Auto 0.7 X10*3/uL (0.1-1.2); Monocytes Percent Auto 8.3 % (2-11); Neutrophils Absolute Auto 5.4 X10*3/uL (2.0-8.3); Neutrophils Percent Auto 64.3 % (45-73); Platelet Count 174 X10*3/uL (160-400); Red Blood Count 4.05 X10*6/uL (4.20-5.50); Red Cell Distribution Width 12.3 % (11.0-16.0); White Blood Count 8.3 X10*3/uL (4.8-10.8)
--- NOTE | 2021-02-01 20:58 | PC.NURSE ---
Abx delayed d/t no PIV access established at this time. This RN attempted x 1. Dayanna Barlow RN to attempt PIV insertion.
[2021-02-01 21:05] LABS: B Type Natriuretic Peptide 61 pg/mL (<100); Troponin-I High Sensitivity < 3.5 ng/L (<3.5-17.0)
[2021-02-01 21:17] VITALS: BP 135/92; PULSE 66; RESP 17; TEMP 36; O2SAT 97
[2021-02-01] MEDS: levoFLOXacin/D5W 750 MG/150 ML PIGGYBACK 100 MG IV (21:18)
[2021-02-01] MEDS: 0.9 % Sodium Chloride 1,000 ML 999 ML IVCONT (21:21)
[2021-02-01 21:24] LABS: Alanine Aminotransferase < 6 U/L (0-31); Albumin Level 4.2 g/dL (3.5-5.0); Alkaline Phosphatase 108 U/L (39-117); Anion Gap 14 (12-20); Aspartate Amino Transferase 20 U/L (5-31); Bilirubin Direct < 0.2 mg/dL (0.0-0.5); Bilirubin Total 0.4 mg/dL (0.0-1.0); Blood Urea Nitrogen 26 mg/dL (9-16); Calcium 9.5 mg/dL (8.4-10.2); Carbon Dioxide 26 mmol/L (22-29); Chloride 108 mmol/L (96-108); Creatinine Clr Calc Pharmacy 34.3; Estimated Glomerular Filt Rate 50; Glucose Random 103 mg/dL (60-115); Lipase 54 U/L (8-78); Magnesium 2.4 mg/dL (1.6-2.6); Potassium 4.5 mmol/L (3.3-5.1); Sodium 143 mmol/L (135-145); Total Protein 7.4 g/dL (6.5-8.0)
[2021-02-01 22:00] VITALS: BP 96/80; PULSE 83; RESP 17; O2SAT 98
--- NOTE | 2021-02-01 22:56 | PM.IMHP ---
History of Present Illness Date of Service: 02/01/21 Chief Complaint: confusion 70-year-old female with past medical history of DVT on Coumadin, Parkinson's disease and dementia who presents to the hospital accompanied by her daughter with complaints of altered mentation, just not being herself. Her daughter reports that starting yesterday her mom seem to be a little off, more tired, had change in behavior, and slightly confused as compared to her usual baseline, with worsening of her symptoms today. Patient's daughter reports that because they have been through this before she knew that she must have some sort of urinary tract infection and therefore brought her into the hospital. Patient herself reports dysuria, denies any abdominal pain nausea or vomiting, no chest pain, shortness of breath or palpitations. No lower extremity edema. No headache or change in vision. Patient also complained to her daughter that she had left flank pain. on arrival to the ED patient hemodynamically stable with no significant abnormal vitals Labs are significant for a WBC count of 8.3, PT of 40.3, INR 3.4, PTT of 51.8, labs otherwise unremarkable except for UA that is positive for nitrites, leukocyte Estrace and WBC. Scattered chronic small-vessel ischemic changes within the periventricular white matter, with no evidence of acute territorial infarct or hemorrhage Chest x-ray shows no evidence of acute disease Patient will be admitted for encephalopathy secondary to UTI Review of Systems Review of Systems: Yes all other systems are reviewed and are negative [facility] Medical History Anxiety Depression GERD (gastroesophageal reflux disease) History of atrial fibrillation History of DVT (deep vein thrombosis) Hx of sepsis Kidney stones Parkinson disease Parkinson's disease dementia Scoliosis Surgical History History of cystoscopy History of lithotripsy Hx of section Hx of knee surgery Social History Household Members: Family Household Members Other:: daughter Housing: Unknown / Unable to assess Are you a primary nursing care partner to a significant other at home: No Do you presently have visiting nurse or other home services: Yes (Home Health Aid) Unable to assess alcohol history related to: Unable to respond Alcohol intake: never Second Hand Smoke Exposure: No Use of substances other than those prescribed or required for medical reasons: No Have you been hit, kicked, punched, or otherwise hurt by someone within the past year? If so, by whom?: No Do you feel safe in your current relationship?: No Is there a partner from a previous relationship who is making you feel unsafe now?: No Are you made to feel afraid or neglected: No Advance Directives: No Advance Directives Information Provided: No Do you have thoughts of harming others: None Recently lost weight without trying: Unsure Eating poorly because of decreased appetite: No Nutrition Risks: No Nutritional Risk service: No Current occupational status: disabled Meds Allergies Allergy/AdvReac Type Severity Reaction Status Date / Time amoxicillin [AMOXICILLIN] Allergy Unknown Rash Verified 10/22/20 11:00 Active Medications: Current Medications Generic Name Dose Route Start Last Admin Trade Name Freq PRN Reason Stop Dose Admin Pharmacy Consult 1 each 02/01/21 19:21 Consult Rx Perform Med Rec MISCELLANE ONCE PRN Consult order Home Medications Medication Instructions Recorded Confirmed Last Taken Type carbidopa-levodopa 2 tab PO 0700,1100,1500,1900 06/12/20 02/01/21 06/11/20 History cetirizine 10 mg PO DAILY PRN 06/12/20 02/01/21 06/11/20 History clonazepam 0.5 mg PO BID PRN 06/12/20 02/01/21 06/11/20 History multivitamin 1 tab PO DAILY 06/12/20 02/01/21 06/11/20 History omeprazole 20 mg PO DAILY 06/12/20 02/01/21 06/10/20 History paroxetine HCl 20 mg PO QAM 06/12/20 02/01/21 06/10/20 History pramipexole 0.25 mg PO TID 06/12/20 02/01/21 06/11/20 History quetiapine 25 mg PO BID 06/12/20 02/01/21 06/11/20 History warfarin 2.5 tab PO DAILY@1600 06/12/20 02/01/21 10/17/20 History Physical Exam Vital Signs and Narrative: Vital Signs: Last Vital Signs Temp 96.8 F 02/01/21 21:17 Pulse 83 02/01/21 22:00 Resp 17 02/01/21 22:00 BP 96/80 02/01/21 22:00 Pulse Ox 98 02/01/21 22:00 Body Mass Index 27.4 Const: General: cooperative and no acute distress Orientation/consciousness: patient oriented x3 Eyes: General: appearance normal, both eyes and all related structures Resp: Effort & Inspection: normal respiratory effort and able to speak in complete sentences Cardio: Rate: regular rate Rhythm: regular rhythm GI: Palpation (GI): Soft to palpation Auscultation: normal bowel sounds Skin: General skin exam: no rashes or lesions noted Neuro: General: patient oriented x3 Cognition (Neuro): normal cognition Extrem: General: Yes normal to inspection and Yes no pedal edema Results Labs CBC and Chem 7: 02/01/21 20:21 02/01/21 20:21 Labs: Laboratory Results - last 24 hr 02/01/21 02/01/21 02/01/21 19:25 19:25 19:26 MCV MCH MCHC RDW Plt Count MPV Immature Gran % (Auto) Neut % (Auto) Lymph % (Auto) [place] % (Auto) Eos % (Auto) Baso % (Auto) Lymph # (Auto) [place] # (Auto) Eos # (Auto) Baso # (Auto) Abs Immat Gran (auto) Absolute Neuts (auto) Absolute Nucleated RBC Nucleated RBC % (auto) PT INR APTT Anion Gap Estim Creat Clear Calc Estimated GFR Random Glucose Lactic Acid Calcium Magnesium Total Bilirubin Direct Bilirubin AST ALT Alkaline Phosphatase Troponin I High Sens B-Natriuretic Peptide Total Protein Albumin Lipase Urine Color YELLOW Urine Appearance HAZY Urine pH 6.0 Ur Specific [place] 1.025 Urine Protein NEG Urine Glucose (UA) NEG Urine Ketones NEG Urine Blood NEG Urine Nitrite POS H Ur Leukocyte Esterase TRACE H Urine RBC 0 Urine WBC 15-29 H Ur Squamous Epith Cells NONE Urine Bacteria 2+ Urine Opiates Screen Not Detected Ur Barbiturates Screen Not Detected Ur Phencyclidine Scrn Not Detected Ur Amphetamines Screen Not Detected U Benzodiazepines Scrn Not Detected Urine Cocaine Screen Not Detected U Marijuana (THC) Screen Not Detected COVID-19 (FERNANDO) Negative COVID-19 Clin Com See Note 02/01/21 02/01/21 02/01/21 19:47 19:47 20:21 MCV 96.8 MCH 32.1 MCHC 33.2 RDW 12.3 Plt Count 174 D MPV 10.9 Immature Gran % (Auto) 0.2 Neut % (Auto) 64.3 Lymph % (Auto) 26.3 [place] % (Auto) 8.3 Eos % (Auto) 0.5 Baso % (Auto) 0.4 Lymph # (Auto) 2.2 [place] # (Auto) 0.7 Eos # (Auto) 0.0 Baso # (Auto) 0.0 Abs Immat Gran (auto) 0.02 Absolute Neuts (auto) 5.4 Absolute Nucleated RBC 0.000 Nucleated RBC % (auto) 0.0 PT 40.3 H D INR 3.4 H APTT 51.8 H Anion Gap Estim Creat Clear Calc Estimated GFR Random Glucose Lactic Acid 1.6 Calcium Magnesium Total Bilirubin Direct Bilirubin AST ALT Alkaline Phosphatase Troponin I High Sens B-Natriuretic Peptide Total Protein Albumin Lipase Urine Color Urine Appearance Urine pH Ur Specific [place] Urine Protein Urine Glucose (UA) Urine Ketones Urine Blood Urine Nitrite Ur Leukocyte Esterase Urine RBC Urine WBC Ur Squamous Epith Cells Urine Bacteria Urine Opiates Screen Ur Barbiturates Screen Ur Phencyclidine Scrn Ur Amphetamines Screen U Benzodiazepines Scrn Urine Cocaine Screen U Marijuana (THC) Screen COVID-19 (FERNANDO) COVID-19 Clin Com 02/01/21 02/01/21 20:21 20:21 MCV MCH MCHC RDW Plt Count MPV Immature Gran % (Auto) Neut % (Auto) Lymph % (Auto) [place] % (Auto) Eos % (Auto) Baso % (Auto) Lymph # (Auto) [place] # (Auto) Eos # (Auto) Baso # (Auto) Abs Immat Gran (auto) Absolute Neuts (auto) Absolute Nucleated RBC Nucleated RBC % (auto) PT INR APTT Anion Gap 14 Estim Creat Clear Calc 34.3 Estimated GFR 50 Random Glucose 103 Lactic Acid Calcium 9.5 Magnesium 2.4 Total Bilirubin 0.4 Direct Bilirubin < 0.2 AST 20 ALT < 6 Alkaline Phosphatase 108 D Troponin I High Sens < 3.5 B-Natriuretic Peptide 61 Total Protein 7.4 Albumin 4.2 Lipase 54 Urine Color Urine Appearance Urine pH Ur Specific [place] Urine Protein Urine Glucose (UA) Urine Ketones Urine Blood Urine Nitrite Ur Leukocyte Esterase Urine RBC Urine WBC Ur Squamous Epith Cells Urine Bacteria Urine Opiates Screen Ur Barbiturates Screen Ur Phencyclidine Scrn Ur Amphetamines Screen U Benzodiazepines Scrn Urine Cocaine Screen U Marijuana (THC) Screen COVID-19 (FERNANDO) COVID-19 Clin Com Imaging Radiologist's Impressions: Impressions Chest X-Ray 02/01/21 19:21 IMPRESSION: No evidence of acute disease compared to 10/04/2020. Head CT 02/01/21 19:21 IMPRESSION: There are scattered chronic small vessel ischemic changes within the periventricular white matter. No evidence of acute territorial infarct or hemorrhage. Assessment and Plan (1) Encephalopathy: Status: Acute (2) Acute UTI: Status: Acute (3) Supratherapeutic INR: Status: Acute This is a 70-year-old female with past medical history of DVT on Coumadin who presents to the hospital with complaints of encephalopathy found to have UTI # encephalopathy - most likely secondary to acute UTI - has had UTIs in the past with similar presentation - will treat with levofloxacin given the most recent urine cultures - follow mentation # UTI - UA positive, patient has dysuria and left flank pain - will treat her with IV levofloxacin - follow cultures # supratherapeutic INR - will hold Coumadin for tonight - daily PT INR - resume Coumadin once PT INR between 2-3 DVT prophylaxis:coumadin Quality Stroke Does the patient have a stroke diagnosis?: No VTE Prior VTE?: Yes VTE Risk Level:: Medical - moderate - high VTE Device Contraindication: Treatment Not Indicated VTE Drug Contraindication: N/A - Med Ordered
[2021-02-02] VITALS (8 sets, daily range): BP systolic 142–190; BP diastolic 72–105; PULSE 61–87; RESP 15–20; TEMP 36–37; O2SAT 96–100; BMI 28.8
[2021-02-02] MEDS: QUEtiapine Fumarate 25 MG TABLET PO ×3 (01:58→20:36)
[2021-02-02] MEDS: Omeprazole 20 MG CAPSULE.DR PO (06:17)
[2021-02-02 07:38] LABS: Imm Gran Abs Auto 0.01 X10*3/uL (0.00-0.03); Imm Gran Pct Auto 0.1 % (0.0-0.4); MANUAL DIFF FLAG SCAN; PLT CLUMP 1; SCAN SMEAR FLAG 1
[2021-02-02 07:40] LABS: Basophils Percent Auto 0.5 % (0-2); Eosinophils Absolute Auto 0.1 X10*3/uL (0.0-0.4); Eosinophils Percent Auto 1.3 % (0-4); Hematocrit 45.5 % (37-47); Hemoglobin 14.6 g/dl (12.0-16.0); Lymphocytes Absolute Auto 2.5 X10*3/uL (1.2-4.9); Lymphocytes Percent Auto 32.9 % (20-40); Mean Corpuscular HGB Conc 32.1 g/dl (31.0-35.0); Mean Corpuscular Hemoglobin 32.2 pg (27.0-33.0); Mean Corpuscular Volume 100.2 fL (80-98); Mean Platelet Volume 11.7 fL (9.4-12.3); Monocytes Absolute Auto 0.9 X10*3/uL (0.1-1.2); Monocytes Percent Auto 12.5 % (2-11); Neutrophils Percent Auto 52.7 % (45-73); Red Blood Count 4.54 X10*6/uL (4.20-5.50); Red Cell Distribution Width 12.5 % (11.0-16.0); White Blood Count 7.5 X10*3/uL (4.8-10.8)
[2021-02-02 07:44] LABS: INTERNATIONAL NORM RATIO 3.5 (0.9-1.1)
[2021-02-02 08:04] LABS: SLIDE REVIEW VERIFIED
[2021-02-02 08:15] LABS: Anion Gap 15 (12-20); Blood Urea Nitrogen 21 mg/dL (9-16); Calcium 8.8 mg/dL (8.4-10.2); Carbon Dioxide 21 mmol/L (22-29); Chloride 111 mmol/L (96-108); Creatinine Clr Calc Pharmacy 46.2; Estimated Glomerular Filt Rate > 60; Glucose Random 87 mg/dL (60-115); Potassium 4.3 mmol/L (3.3-5.1); Sodium 143 mmol/L (135-145)
[2021-02-02] MEDS: Pramipexole Di-HCL 0.25 MG TABLET PO ×3 (09:25→22:07)
[2021-02-02] MEDS: PARoxetine HCL 20 MG TABLET PO (09:25)
[2021-02-02] MEDS: Multivitamin TABLET 1 TAB PO (09:25)
[2021-02-02] MEDS: Carbidopa/Levodopa 25/100 TABLET 2 TAB PO ×3 (09:25→20:36)
[2021-02-02] MEDS: 0.9 % Sodium Chloride Flush 3 ML SYRINGE IVFLUSH ×3 (09:25→20:36)
--- NOTE | 2021-02-02 14:49 | HO.PM.IMPN ---
Subjective Subjective Date of Service: 02/02/21 Interval History: History taken in [place] from the patient Mild discomfort with urination No fever No nausea/vomiting Physical Exam Vital Signs: Vital Signs: Last Vital Signs Temp 96.8 F 02/02/21 10:54 Pulse 67 02/02/21 10:54 Resp 20 02/02/21 10:54 BP 170/90 H 02/02/21 10:54 Pulse Ox 96 02/02/21 10:54 Body Mass Index 30.0 Gen: in no acute distress HEENT: sclera anicteric, moist mucus membranes Neck: supple Lungs: clear to auscultation bilaterally Heart: regular rate and rhythm, no murmurs Abd: soft, non-tender, non-distended Ext: no edema Skin: warm/well-perfused Neuro: oriented to self and place Psych: appropriate affect Objective Data Current Medications Generic Name Dose Route Start Last Admin Trade Name Freq PRN Reason Stop Dose Admin Acetaminophen 650 mg 02/02/21 00:09 Acetaminophen 325 Mg Tablet PO Q6H PRN Pain, Mild (Pain Scale 1-3) Carbidopa/Levodopa 2 tab 02/02/21 07:00 02/02/21 09:25 Carbidopa/Levodopa 25/100 Tablet PO 2 tab 0700,1100,1500,1900 JULIO C Administration Clonazepam 0.5 mg 02/02/21 00:09 Clonazepam 0.5 Mg Tablet PO BID PRN anxiety Docusate Sodium 100 mg 02/02/21 00:09 Docusate Sodium 100 Mg Capsule PO DAILY PRN Constipation Levofloxacin 750 mg in 150 mls @ 100 mls/hr 02/03/21 21:00 Levaquin IV Q48H JULIO C Loratadine 10 mg 02/02/21 00:09 Loratadine 10 Mg Tablet PO DAILY PRN allergies Multivitamins/Vitamin C 1 tab 02/02/21 09:00 02/02/21 09:25 Multivitamin Tablet PO 1 tab DAILY JULIO C Administration Omeprazole 20 mg 02/02/21 06:30 02/02/21 05:22 Omeprazole 20 Mg Capsule.Dr PO 20 mg DAILY@0630 JULIO C Administration Ondansetron HCl 4 mg 02/02/21 00:09 Ondansetron Hcl 4 Mg/2 Ml Vial IVPUSH Q8H PRN Nausea and Vomiting Paroxetine HCl 20 mg 02/02/21 09:00 02/02/21 09:25 Paroxetine Hcl 20 Mg Tablet PO 20 mg DAILY JULIO C Administration Pharmacy Consult 1 each 02/01/21 19:21 Consult Rx Perform Med Rec MISCELLANE ONCE PRN Consult order Pramipexole Dihydrochloride 0.25 mg 02/02/21 00:09 02/02/21 09:25 Pramipexole Di-Hcl 0.25 Mg Tablet PO 0.25 mg TID JULIO C Administration Quetiapine Fumarate 25 mg 02/02/21 00:09 02/02/21 09:25 Quetiapine Fumarate 25 Mg Tablet PO 25 mg BID JULIO C Administration Sodium Chloride 3 ml 02/02/21 00:09 02/02/21 09:25 0.9 % Sodium Chloride Flush 3 Ml Syringe IVFLUSH 3 ml QSHIFT JULIO C Administration Labs CBC & Chem 7: 02/02/21 07:17 02/02/21 07:17 Labs: Laboratory Results - last 24 hr 02/01/21 02/01/21 02/01/21 19:25 19:25 19:26 WBC RBC Hgb Hct MCV MCH MCHC RDW Plt Count MPV Immature Gran % (Auto) Neut % (Auto) Lymph % (Auto) [place] % (Auto) Eos % (Auto) Baso % (Auto) Lymph # (Auto) [place] # (Auto) Eos # (Auto) Baso # (Auto) Abs Immat Gran (auto) Absolute Neuts (auto) Absolute Nucleated RBC Nucleated RBC % (auto) Smear Tech's Comments PT INR APTT Sodium Potassium Chloride Carbon Dioxide Anion Gap BUN Creatinine Estim Creat Clear Calc Estimated GFR Random Glucose Lactic Acid Calcium Magnesium Total Bilirubin Direct Bilirubin AST ALT Alkaline Phosphatase Troponin I High Sens B-Natriuretic Peptide Total Protein Albumin Lipase Urine Color YELLOW Urine Appearance HAZY Urine pH 6.0 Ur Specific [place] 1.025 Urine Protein NEG Urine Glucose (UA) NEG Urine Ketones NEG Urine Blood NEG Urine Nitrite POS H Ur Leukocyte Esterase TRACE H Urine RBC 0 Urine WBC 15-29 H Ur Squamous Epith Cells NONE Urine Bacteria 2+ Urine Opiates Screen Not Detected Ur Barbiturates Screen Not Detected Ur Phencyclidine Scrn Not Detected Ur Amphetamines Screen Not Detected U Benzodiazepines Scrn Not Detected Urine Cocaine Screen Not Detected U Marijuana (THC) Screen Not Detected COVID-19 (FERNANDO) Negative COVID-19 Clin Com See Note 02/01/21 02/01/21 02/01/21 19:47 19:47 20:21 WBC 8.3 RBC 4.05 L Hgb 13.0 Hct 39.2 MCV 96.8 MCH 32.1 MCHC 33.2 RDW 12.3 Plt Count 174 D MPV 10.9 Immature Gran % (Auto) 0.2 Neut % (Auto) 64.3 Lymph % (Auto) 26.3 [place] % (Auto) 8.3 Eos % (Auto) 0.5 Baso % (Auto) 0.4 Lymph # (Auto) 2.2 [place] # (Auto) 0.7 Eos # (Auto) 0.0 Baso # (Auto) 0.0 Abs Immat Gran (auto) 0.02 Absolute Neuts (auto) 5.4 Absolute Nucleated RBC 0.000 Nucleated RBC % (auto) 0.0 Smear Tech's Comments PT 40.3 H D INR 3.4 H APTT 51.8 H Sodium Potassium Chloride Carbon Dioxide Anion Gap BUN Creatinine Estim Creat Clear Calc Estimated GFR Random Glucose Lactic Acid 1.6 Calcium Magnesium Total Bilirubin Direct Bilirubin AST ALT Alkaline Phosphatase Troponin I High Sens B-Natriuretic Peptide Total Protein Albumin Lipase Urine Color Urine Appearance Urine pH Ur Specific [place] Urine Protein Urine Glucose (UA) Urine Ketones Urine Blood Urine Nitrite Ur Leukocyte Esterase Urine RBC Urine WBC Ur Squamous Epith Cells Urine Bacteria Urine Opiates Screen Ur Barbiturates Screen Ur Phencyclidine Scrn Ur Amphetamines Screen U Benzodiazepines Scrn Urine Cocaine Screen U Marijuana (THC) Screen COVID-19 (FERNANDO) COVID-19 Clin Com 02/01/21 02/01/21 02/02/21 20:21 20:21 07:17 WBC 7.5 RBC 4.54 Hgb 14.6 Hct 45.5 MCV 100.2 H MCH 32.2 MCHC 32.1 RDW 12.5 Plt Count MPV 11.7 Immature Gran % (Auto) 0.1 Neut % (Auto) 52.7 Lymph % (Auto) 32.9 [place] % (Auto) 12.5 H Eos % (Auto) 1.3 Baso % (Auto) 0.5 Lymph # (Auto) 2.5 [place] # (Auto) 0.9 Eos # (Auto) 0.1 Baso # (Auto) 0.0 Abs Immat Gran (auto) 0.01 Absolute Neuts (auto) 4.0 Absolute Nucleated RBC 0.000 Nucleated RBC % (auto) 0.0 Smear Tech's Comments VERIFIED PT INR APTT Sodium 143 Potassium 4.5 Chloride 108 Carbon Dioxide 26 Anion Gap 14 BUN 26 H Creatinine 1.08 Estim Creat Clear Calc 34.3 Estimated GFR 50 Random Glucose 103 Lactic Acid Calcium 9.5 Magnesium 2.4 Total Bilirubin 0.4 Direct Bilirubin < 0.2 AST 20 ALT < 6 Alkaline Phosphatase 108 D Troponin I High Sens < 3.5 B-Natriuretic Peptide 61 Total Protein 7.4 Albumin 4.2 Lipase 54 Urine Color Urine Appearance Urine pH Ur Specific [place] Urine Protein Urine Glucose (UA) Urine Ketones Urine Blood Urine Nitrite Ur Leukocyte Esterase Urine RBC Urine WBC Ur Squamous Epith Cells Urine Bacteria Urine Opiates Screen Ur Barbiturates Screen Ur Phencyclidine Scrn Ur Amphetamines Screen U Benzodiazepines Scrn Urine Cocaine Screen U Marijuana (THC) Screen COVID-19 (FERNANDO) COVID-19 MemfoACT 02/02/21 02/02/21 07:17 07:17 WBC RBC Hgb Hct MCV MCH MCHC RDW Plt Count MPV Immature Gran % (Auto) Neut % (Auto) Lymph % (Auto) [place] % (Auto) Eos % (Auto) Baso % (Auto) Lymph # (Auto) [place] # (Auto) Eos # (Auto) Baso # (Auto) Abs Immat Gran (auto) Absolute Neuts (auto) Absolute Nucleated RBC Nucleated RBC % (auto) Smear Tech's Comments PT 42.0 H INR 3.5 H APTT Sodium 143 Potassium 4.3 Chloride 111 H Carbon Dioxide 21 L Anion Gap 15 BUN 21 H Creatinine 0.84 Estim Creat Clear Calc 46.2 Estimated GFR > 60 Random Glucose 87 Lactic Acid Calcium 8.8 D Magnesium Total Bilirubin Direct Bilirubin AST ALT Alkaline Phosphatase Troponin I High Sens B-Natriuretic Peptide Total Protein Albumin Lipase Urine Color Urine Appearance Urine pH Ur Specific [place] Urine Protein Urine Glucose (UA) Urine Ketones Urine Blood Urine Nitrite Ur Leukocyte Esterase Urine RBC Urine WBC Ur Squamous Epith Cells Urine Bacteria Urine Opiates Screen Ur Barbiturates Screen Ur Phencyclidine Scrn Ur Amphetamines Screen U Benzodiazepines Scrn Urine Cocaine Screen U Marijuana (THC) Screen COVID-19 (FERNANDO) COVID-19 [facility] Com Microbiology Microbiology Results: Microbiology 02/01/21 19:25 Urine Culture - Preliminary Urine Catheterized Gram negative denice Quality Stroke Does the patient have a stroke diagnosis?: No VTE Prior VTE?: Yes VTE Risk Level:: Medical - moderate - high VTE Device Contraindication: Treatment Not Indicated VTE Drug Contraindication: N/A - Med Ordered Assessment and Plan (1) Acute UTI: Status: Acute (2) Supratherapeutic INR: Status: Acute (3) Encephalopathy: Status: Acute Assessment and Plan: hospital d#2 70yo F with Parkinson's dementia, hx DVT anticoagulated on warfarin, coming with confusion and admitted for UTI typical of prior presentations with same # acute encephalopathy - likely due to UTI superimposed on underlying Parkinson's dementia # acute UTI - continue levofloxacin d#2, follow UCx, last UCx grew Enterobacter aerogenes R to nitrofurantoin + I to ceftriaxone # supratherapeutic INR - continue to hold warfarin until INR 2-3, monitor INR daily # Parkinson's dementia - continue Sinemet, pramipexole, quetiapine, paroxetine # VTE ppx - warfarin # dispo - plan return home under care of daughter, has [employer] services
[2021-02-02] MEDS: Acetaminophen 325 MG TABLET 650 MG PO (20:35)
[2021-02-03 01:08] VITALS: BP 190/105; PULSE 78
[2021-02-03] MEDS: hydrALAZINE HCl 20 MG/ML VIAL 5 MG IVPUSH (01:08)
[2021-02-03 01:30] VITALS: BP 150/78; PULSE 89; RESP 18
[2021-02-03 03:02] VITALS: PULSE 87; RESP 16; TEMP 36.4; O2SAT 96
[2021-02-03] MEDS: Acetaminophen 325 MG TABLET 650 MG PO (03:11)
[2021-02-03] MEDS: clonazePAM 0.5 MG TABLET PO (03:12)
[2021-02-03 04:13] VITALS: BP 114/60
[2021-02-03 06:00] VITALS: BMI 30.7
[2021-02-03] MEDS: Carbidopa/Levodopa 25/100 TABLET 2 TAB PO ×2 (06:16→09:04)
[2021-02-03 06:20] LABS: INTERNATIONAL NORM RATIO 3.2 (0.9-1.1); Prothrombin Time 38.2 SEC (10.8-13.0)
[2021-02-03 08:05] VITALS: BP 142/76; PULSE 63; RESP 19; TEMP 36.6; O2SAT 99
[2021-02-03] MEDS: Multivitamin TABLET 1 TAB PO (09:04)
[2021-02-03] MEDS: QUEtiapine Fumarate 25 MG TABLET PO (09:04)
[2021-02-03] MEDS: PARoxetine HCL 20 MG TABLET PO (09:04)
[2021-02-03] MEDS: Pramipexole Di-HCL 0.25 MG TABLET PO (09:04)
[2021-02-03] MEDS: 0.9 % Sodium Chloride Flush 3 ML SYRINGE IVFLUSH (09:04)
--- NOTE | 2021-02-03 11:30 | PM.DS ---
DS: Providers Provider Date of Service: 02/03/21 Date of admission: 02/01/21 22:56 Primary care physician: Mirella Saavedra DO DS: Diagnosis Discharge Diagnosis (1) Acute UTI: Status: Acute (2) Supratherapeutic INR: Status: Acute (3) Acute encephalopathy: Status: Acute DS: Medications Discharge Medications Home Medications: Home Medications Medication Instructions Recorded Confirmed carbidopa-levodopa 2 tab PO 0700,1100,1500,1900 06/12/20 02/01/21 cetirizine 10 mg PO DAILY PRN 06/12/20 02/01/21 clonazepam 0.5 mg PO BID PRN 06/12/20 02/01/21 multivitamin 1 tab PO DAILY 06/12/20 02/01/21 omeprazole 20 mg PO DAILY 06/12/20 02/01/21 paroxetine HCl 20 mg PO QAM 06/12/20 02/01/21 pramipexole 0.25 mg PO TID 06/12/20 02/01/21 quetiapine 25 mg PO BID 06/12/20 02/01/21 warfarin 2.5 tab PO DAILY@1600 06/12/20 02/01/21 Previous Rx's Medication Instructions Recorded cefuroxime axetil 250 mg PO BID #10 tab 02/03/21 DS: Summary Hospital Course Hospital Course: From the admission H+P by hospitalist Kevon Daly, 02/01/21: 70-year-old female with past medical history of DVT on Coumadin, Parkinson's disease and dementia who presents to the hospital accompanied by her daughter with complaints of altered mentation, just not being herself. Her daughter reports that starting yesterday her mom seem to be a little off, more tired, had change in behavior, and slightly confused as compared to her usual baseline, with worsening of her symptoms today. Patient's daughter reports that because they have been through this before she knew that she must have some sort of urinary tract infection and therefore brought her into the hospital. Patient herself reports dysuria, denies any abdominal pain nausea or vomiting, no chest pain, shortness of breath or palpitations. No lower extremity edema. No headache or change in vision. Patient also complained to her daughter that she had left flank pain. on arrival to the ED patient hemodynamically stable with no significant abnormal vitals Labs are significant for a WBC count of 8.3, PT of 40.3, INR 3.4, PTT of 51.8, labs otherwise unremarkable except for UA that is positive for nitrites, leukocyte E[place]ace and WBC. Scattered chronic small-vessel ischemic changes within the periventricular white matter, with no evidence of acute territorial infarct or hemorrhage Chest x-ray shows no evidence of acute disease Patient will be admitted for encephalopathy secondary to UTI The patient was admitted to the [facility] and given IV levofloxacin for UTI. Urine culture grew E. coli resistant to ampicillin and SMX/TMP. Her mental status returned to baseline. She was not septic. She was discharged home with a prescription for 5 more days of PO cefuroxime. Warfarin was held during the hospitalization; INR was 3.4 on the day of discharge and 3.2 on the day of admission. INR should be rechecked on 02/04/21 and warfarin resumed once INR is 3 or less. She was discharged back home in the care of her daughter, who was instructed to have the patient follow up with her primary care doctor in one week. Time Spent with Patient Time attestation: Total time spent providing and/or coordinating discharge services: 35 Discharge coordination time: Greater than 30 minutes Quality: Stroke Does the patient have a stroke diagnosis?: No Physical Exam Vital Signs: Vital Signs: Last Vital Signs Temp 97.8 F 02/03/21 08:05 Pulse 63 02/03/21 08:05 Resp 19 02/03/21 08:05 BP 142/76 H 02/03/21 08:05 Pulse Ox 99 02/03/21 08:05 Body Mass Index 30.7 Gen: in no acute distress HEENT: sclera anicteric, moist mucus membranes Neck: supple Lungs: clear to auscultation bilaterally Heart: regular rate and rhythm, no murmurs Abd: soft, non-tender, non-distended Ext: no edema Skin: warm/well-perfused Neuro: oriented to self and place, masked facies Psych: appropriate affect DS: Data Data Completed and Pending Completed studies during hospitalization [Text1]: Laboratory Results WBC 7.5 X10*3/uL (4.8-10.8) 02/02/21 07:17 RBC 4.54 X10*6/uL (4.20-5.50) 02/02/21 07:17 Hgb 14.6 g/dl (12.0-16.0) 02/02/21 07:17 Hct 45.5 % (37-47) 02/02/21 07:17 MCV 100.2 fL (80-98) H 02/02/21 07:17 MCH 32.2 pg (27.0-33.0) 02/02/21 07:17 MCHC 32.1 g/dl (31.0-35.0) 02/02/21 07:17 RDW 12.5 % (11.0-16.0) 02/02/21 07:17 Plt Count X10*3/uL (160-400) 02/02/21 07:17 MPV 11.7 fL (9.4-12.3) 02/02/21 07:17 Immature Gran % (Auto) 0.1 % (0.0-0.4) 02/02/21 07:17 Neut % (Auto) 52.7 % (45-73) 02/02/21 07:17 Lymph % (Auto) 32.9 % (20-40) 02/02/21 07:17 [place] % (Auto) 12.5 % (2-11) H 02/02/21 07:17 Eos % (Auto) 1.3 % (0-4) 02/02/21 07:17 Baso % (Auto) 0.5 % (0-2) 02/02/21 07:17 Lymph # (Auto) 2.5 X10*3/uL (1.2-4.9) 02/02/21 07:17 [place] # (Auto) 0.9 X10*3/uL (0.1-1.2) 02/02/21 07:17 Eos # (Auto) 0.1 X10*3/uL (0.0-0.4) 02/02/21 07:17 Baso # (Auto) 0.0 X10*3/uL (0.0-0.2) 02/02/21 07:17 Abs Immat Gran (auto) 0.01 X10*3/uL (0.00-0.03) 02/02/21 07:17 Absolute Neuts (auto) 4.0 X10*3/uL (2.0-8.3) 02/02/21 07:17 Absolute Nucleated RBC 0.000 X10*3/uL (0.0-0.012) 02/02/21 07:17 Nucleated RBC % (auto) 0.0 /100WBC (0.0-0.2) 02/02/21 07:17 Smear Tech's Comments VERIFIED 02/02/21 07:17 PT 38.2 SEC (10.8-13.0) H 02/03/21 05:27 INR 3.2 (0.9-1.1) H 02/03/21 05:27 APTT 51.8 SEC (24.1-38.0) H 02/01/21 19:47 Sodium 143 mmol/L (135-145) 02/02/21 07:17 Potassium 4.3 mmol/L (3.3-5.1) 02/02/21 07:17 Chloride 111 mmol/L (96-108) H 02/02/21 07:17 Carbon Dioxide 21 mmol/L (22-29) L 02/02/21 07:17 Anion Gap 15 (12-20) 02/02/21 07:17 BUN 21 mg/dL (9-16) H 02/02/21 07:17 Creatinine 0.84 mg/dL (0.5-1.4) 02/02/21 07:17 Estim Creat Clear Calc 46.2 02/02/21 07:17 Estimated GFR > 60 02/02/21 07:17 Random Glucose 87 mg/dL (60-115) 02/02/21 07:17 Lactic Acid 1.6 mmol/L (0.5-2.0) 02/01/21 19:47 Calcium 8.8 mg/dL (8.4-10.2) D 02/02/21 07:17 Magnesium 2.4 mg/dL (1.6-2.6) 02/01/21 20:21 Total Bilirubin 0.4 mg/dL (0.0-1.0) 02/01/21 20:21 Direct Bilirubin < 0.2 mg/dL (0.0-0.5) 02/01/21 20:21 AST 20 U/L (5-31) 02/01/21 20:21 ALT < 6 U/L (0-31) 02/01/21 20:21 Alkaline Phosphatase 108 U/L (39-117) D 02/01/21 20:21 Troponin I High Sens < 3.5 ng/L (<3.5-17.0) 02/01/21 20:21 B-Natriuretic Peptide 61 pg/mL (<100) 02/01/21 20:21 Total Protein 7.4 g/dL (6.5-8.0) 02/01/21 20: Albumin 4.2 g/dL (3.5-5.0) 02/01/21 20: Lipase 54 U/L (8-78) 02/01/21 20:21 Urine Color YELLOW 02/01/21 19:25 Urine Appearance HAZY 02/01/21 19:25 Urine pH 6.0 (5.0-8.0) 02/01/21 19:25 Ur Specific [place] 1.025 (1.005-1.025) 02/01/21 19:25 Urine Protein NEG MG/DL (NEG-TRACE) 02/01/21 19:25 Urine Glucose (UA) NEG MG/DL (NEG) 02/01/21 19:25 Urine Ketones NEG MG/DL (NEG) 02/01/21 19:25 Urine Blood NEG (NEG) 02/01/21 19:25 Urine Nitrite POS (NEG) H 02/01/21 19:25 Ur Leukocyte Esterase TRACE (NEG) H 02/01/21 19:25 Urine RBC 0 /HPF (0) 02/01/21 19:25 Urine WBC 15-29 /HPF (0-4) H 02/01/21 19:25 Ur Squamous Epith Cells NONE /LPF 02/01/21 19:25 Urine Bacteria 2+ /LPF 02/01/21 19:25 Urine Opiates Screen Not Detected (Not Detect) 02/01/21 19:25 Ur Barbiturates Screen Not Detected (Not Detect) 02/01/21 19:25 Ur Phencyclidine Scrn Not Detected (Not Detect) 02/01/21 19:25 Ur Amphetamines Screen Not Detected (Not Detect) 02/01/21 19:25 U Benzodiazepines Scrn Not Detected (Not Detect) 02/01/21 19:25 Urine Cocaine Screen Not Detected (Not Detect) 02/01/21 19:25 U Marijuana (THC) Screen Not Detected (Not Detect) 02/01/21 19:25 COVID-19 (FERNANDO) Negative (Negative) 02/01/21 19:26 COVID-19 Clin Com See Note 02/01/21 19:26 Impressions Chest X-Ray 02/01/21 19:21 IMPRESSION: No evidence of acute disease compared to 10/04/2020. Head CT 02/01/21 19:21 IMPRESSION: There are scattered chronic small vessel ischemic changes within the periventricular white matter. No evidence of acute territorial infarct or hemorrhage. Discharge Plan Discharge Patient Disposition: Home, Self-Care Discharge Diagnosis: UTI, encephalopathy Referrals: Mirella Medina DO [Primary Care Provider] - 1 Week Discharge Medications: New cefuroxime axetil 250 mg tablet 250 mg PO BID Qty: 10 RF: 0 Continued quetiapine 25 mg tablet 25 mg PO BID RF: 0 cetirizine 10 mg tablet 10 mg PO DAILY PRN (Reason: allergies) RF: 0 clonazepam 0.5 mg tablet 0.5 mg PO BID PRN (Reason: anxiety) RF: 0 paroxetine HCl 20 mg tablet 20 mg PO QAM RF: 0 pramipexole 0.25 mg tablet 0.25 mg PO TID RF: 0 omeprazole 20 mg capsule,delayed release(DR/EC) 20 mg PO DAILY RF: 0 multivitamin Tablet 1 tab PO DAILY RF: 0 carbidopa-levodopa 25-100 mg tablet 2 tab PO 0700,1100,1500,1900 RF: 0 Held warfarin 2.5 mg tablet 2.5 tab PO DAILY@1600 RF: 0 Hold Instructions: Resume on 02/05/21. resume once INR is 3 or less Diet: advance to usual diet Activity on Discharge: As tolerated Stand Alone Forms: Patient Portal Discharge page Other Ambulatory Orders: Prothrombin Time INR (Routine) Timeframe: 1 Day Facility: [facility] - Location: Laboratory Ordered By: Nohemy Orellana Care Plan Goals: baseline mental status stroke prevention Health Concerns: UTI causing confusion warfarin for stroke prevention Plan of Treatment: take cefuroxime 250 mg twice daily for 5 days INR today is 3.2 hold warfarin, check INR tomorrow, and resume warfarin once INR is 3 or less. see your primary care doctor in 1 week Assessment: as above Patient Instructions: Urinary Tract Infection in Older Adults (DC)
[2021-02-03 11:45] VITALS: BP 112/62; RESP 19; TEMP 36.3; O2SAT 99
--- NOTE | 2021-02-03 12:43 | MHC.CM.PN ---
Addendum entered by Natalie Peace 02/03/21 12:56: PT WILL DC HOME TODAY WITH RESUMPTION OF HER 24/7 PL[employer] SERVICES. DAUGHTER WILL TRANSPORT Original Note: CM SPOKE TO PTS DAUGHTER/HCP, EDD ROGERS ([phone]) WHO REPORTS THE PT LIVES ALONE AND HAS 24/7 CARE. PT HAS [employer] SERVICES MORNING AND NIGHT AND A CM THROUGH [employer]. PT ALSO HAS SEVERAL TYPES OF DME IN THE HOME INCLUDING RAILS IN THE BATHROOM AND A WHEEL CHAIR. EDD BROWN THE PTS PCP IS LISETTE DOHERTY. IMM WAS DELIVERED VIA T/C AND COPY WAS LEFT IN PTS ROOM PER EDD'S REQUEST. CURRENT DC PLAN IS HOME WITH RESUMPTION OF 24/7 PLUG GROWER SERVICES DED WILL TRANSPORT AT DC
== END 2021-02-03 13:52 | disposition home or self-care (01) | DRG 690 ==
LOC: HO.ED 21:15 → HO.EDOVER 23:57 → HO.IMC 02-02 00:10
PROVIDERS: Physician Assistant; Admitting Provider Internal Medicine; Emergency Provider Internal Medicine; PCP Internal Medicine; Visit Provider Family Medicine
DX: N39.0 Urinary tract infection, site not specified (principal); Z16.11 Resistance to penicillins; Z16.24 Resistance to multiple antibiotics; G93.40 Encephalopathy, unspecified; K21.9 Gastro-esophageal reflux disease without esophagitis; F32.9 Major depressive disorder, single episode, unspecified; G20 Parkinson's disease; B96.20 Unspecified Escherichia coli [E. coli] as the cause of diseases classified elsewhere; F02.80 Dementia in other diseases classified elsewhere, unspecified severity, without behavioral disturbance, psychotic disturbance, mood disturbance, and anxiety; R79.1 Abnormal coagulation profile; Z96.651 Presence of right artificial knee joint; Z20.822 Contact with and (suspected) exposure to COVID-19; Z87.442 Personal history of urinary calculi; Z79.01 Long term (current) use of anticoagulants; Z79.899 Other long term (current) drug therapy
CPT/HCPCS: 36415; 70450; 71045; 80048; 80076; 80307; 81001; 81003; 83605; 83690; 83735; 83880; 84484; 85025; 85610; 85730; 87040; 87086; 87088; 87186; 87635; 93005; 99285; J1956

== ENCOUNTER 2021-02-19 19:16 | Emergency (ER) | payer OTHER, SELFPAY ==
--- NOTE | ~2021-02-19 | CT_ITS ---
EXAMINATION: CT HEAD WITHOUT CONTRAST CLINICAL INFORMATION: Slurred speech and weakness since yesterday. COMPARISON: 02/01/2021 TECHNIQUE: Contiguous axial imaging was performed from the skull base to vertex without intravenous administration of contrast. This CT examination was performed using dose optimization techniques as appropriate, variously including the following: *Automated exposure control *Adjustment of mA and/or kV according to patient size (this includes techniques or standardized protocols for targeted exams where dose is matched to indication/reason for exam; i.e. extremities or head) *Use of iterative reconstruction technique DLP:. 648 mGy-cm FINDINGS: There is no evidence of acute intracranial hemorrhage or territorial infarction. No abnormal mass effect or midline shift is seen. Hererra to white matter differentiation is well preserved. No extra-axial fluid collections are identified. The ventricles are normal in size. Patchy subcortical and periventricular white matter low-attenuation changes reflective of chronic small vessel ischemic disease. Bilateral gangliocapsular lacunar infarcts. The osseous structures and soft tissues are normal. Mucus retention cyst present within the left maxillary sinus. Remainder of the paranasal sinuses are clear. Chronic nasal bone fractures with leftward deviation of the osseous nasal septum. CT/CT head/brain wo con IMPRESSION: * No acute intracranial pathology. * Stable appearing chronic white matter small vessel ischemic changes and bilateral gangliocapsular lacunar infarcts redemonstrated.
[2021-02-19 19:41] VITALS: BP 160/100; PULSE 70; RESP 18; TEMP 37; O2SAT 98; BMI 27.8
--- NOTE | 2021-02-19 19:50 | ECG_ITS ---
Test Reason : AMS Blood Pressure : / mmHG Vent. Rate : 065 BPM Atrial Rate : 065 BPM P-R Int : 140 ms QRS Dur : 076 ms QT Int : 384 ms P-R-T Axes : 015 -12 017 degrees QTc Int : 399 ms Sinus rhythm with marked sinus arrhythmia Voltage criteria for left ventricular hypertrophy Inferior infarct , age undetermined Abnormal ECG When compared with ECG of 01-FEB-2021 19:52, Premature atrial complexes are no longer Present Inferior infarct is now Present Referred By: Generic ED Physician Electronically Signed By:EDUARDO BLAKELY
[2021-02-19 20:19] VITALS: BP 166/77; PULSE 67; RESP 18; TEMP 37.1; O2SAT 97
--- NOTE | 2021-02-19 20:42 | ED.FEMALEGU ---
HPI - Female Genitourinary General Chief complaint: Urogenital-Female Stated complaint: uti? Time Seen by Provider: 02/19/21 20:30 Source: patient and family Mode of arrival: wheelchair Limitations: other (patient is poor historian, obtained from daughter) History of Present Illness HPI Narrative: 70 y/o female with history of dementia, Parkinson's disease, frequent UTI's, DVT/PE on Coumadin who presents to the ER with her daughter from [facility] for concerns of garbled speech and generalized weakness that started yesterday. Patient and her daughter went to the Coumadin clinic today when she had witnessed garbled speech again. She was encouraged to go to urgent care for evaluation. Daughter was concerned she may have another UTI. Her UA at [facility] showed trace blood nd her BP was elevated 160/100s and they were told to come to the ER for evaluation. Daughter reports the patient has 24/7 care at home. She has had some decreased oral liquid intake but is eating normally. She had some mild diarrhea yesterday but did not c/o abd pain or urinary symptoms. She noticed a slight red rash on her bilateral inner thighs. No fevers. No focal weakness or facial droop. MD elicited complaint: other (garbled speech, weakness, blood in urine) Pertinent past history: recurrent UTIs Onset (ago): day(s) Location of symptoms: external genitalia Severity: mild Female Urogenital Radiation: Non-Radiating Vaginal discharge: none Vaginal bleeding: none Exacerbating factors: none Relieving factors: none Associated symptoms: weakness Treatment prior to arrival: none Sexual activity: No Patient : No Related Data Home Medications Medication Instructions Recorded Confirmed carbidopa-levodopa 2 tab PO 0700,1100,1500,1900 06/12/20 02/01/21 cetirizine 10 mg PO DAILY PRN 06/12/20 02/01/21 clonazepam 0.5 mg PO BID PRN 06/12/20 02/01/21 multivitamin 1 tab PO DAILY 06/12/20 02/01/21 omeprazole 20 mg PO DAILY 06/12/20 02/01/21 paroxetine HCl 20 mg PO QAM 06/12/20 02/01/21 pramipexole 0.25 mg PO TID 06/12/20 02/01/21 quetiapine 25 mg PO BID 06/12/20 02/01/21 warfarin 2.5 tab PO DAILY@1600 06/12/20 02/01/21 Previous Rx's Medication Instructions Recorded cefuroxime axetil 250 mg PO BID #10 tab 02/03/21 Allergies Allergy/AdvReac Type Severity Reaction Status Date / Time amoxicillin [AMOXICILLIN] Allergy Unknown Rash Verified 02/19/21 19:41 Review of Systems Review of Systems: Constitutional: No Fever, No Chills ENT/Mouth: No sore throat, No Rhinorrhea, No Swallowing Difficulty Eyes: No Eye Pain, No Swelling, No Redness Cardiovascular: No Chest Pain, No SOB, No Orthopnea, No Edema Respiratory: No Cough, No Sputum, No Wheezing, No dyspnea Gastrointestinal: No Nausea, No Vomiting, No Diarrhea, No abdominal Pain, No Hematochezia, No Melena Genitourinary: No Dysuria, No Urinary Frequency, + Hematuria (microscopic) Musculoskeletal: No joint pain, No Myalgias Skin: No Skin Lesions, No rash Neuro: + Weakness, No Numbness, + Dizziness, No Headache Psych: No Anxiety/Panic, No Depression Heme/Lymph: No Bruising, No Lymphadenopathy Endocrine: No Polyuria, No Polydipsia PMFSH Past Medical History Attestation statement: The following information was validated with the patient. Medical History Anxiety Depression GERD (gastroesophageal reflux disease) History of atrial fibrillation History of DVT (deep vein thrombosis) Hx of sepsis Kidney stones Parkinson disease Parkinson's disease dementia Scoliosis Surgical History History of cystoscopy History of lithotripsy Hx of section Hx of knee surgery Social History Social History Household Members: Family Household Members Other:: daughter Housing: Unknown / Unable to assess Are you a primary care services manager to a significant other at home: No Do you presently have visiting nurse or other home services: Yes (Home Health Aid) Unable to assess alcohol history related to: Unable to respond Alcohol intake: never Second Hand Smoke Exposure: No Advance Directives: No Advance Directives Information Provided: Yes Patient : No service: No Current occupational status: unemployed and disabled Physical Exam Vital Signs: Vital Signs: Last Vital Signs Temp 98.7 F 02/19/21 20:19 Pulse 67 02/19/21 20:19 Resp 18 02/19/21 20:19 BP 166/77 H 02/19/21 20:19 Pulse Ox 97 02/19/21 20:19 Body Mass Index 27.8 Appearance: Alert. Oriented X1No acute distress. Eyes: Pupils equal, round and reactive to light. ENT: Pharynx normal. Neck: Normal inspection. Neck supple. CVS: Normal heart rate and rhythm. Pulses normal. Respiratory: No respiratory distress. Breath sounds normal. Abdomen: Soft and nontender. +BS x4 Skin: Skin warm and dry. Normal skin color. Normal skin turgor. No rashes. Extremities: No lower extremity edema. Mild erythematous patches on bilateral inner thighs Neuro: Oriented X 1. Follows simple commands, tremor in UE, equal and symmetrical strength throughout, generalized weakness and debility noted. Course Course Course Narrative: 70 y/o female with history of Parkinson's dementia who has 24/7 care at home, DVT/PE on coudmain, recurrent UTIs, kidney stones who presents to the ER for evaluation of high blood pressure, microscopic hematuria, generalized weakness and intermittent garbled speech. Her symptoms have been going on for >24 hours and she is fully anticoagulated, not a tpA candidate at this time. Doubt acute CVA as her exam is nonfocal and is more consistent with known Parkinson's dementia. Possible metabolic or infectious etiology with UTI or possible dehydation w/ recent diarrhea. VS show BP 160's. Patient denies chest pain or headache. No need for immediate intervention. Will get CT head, EKG and metabolic workup. Patient is resting comfortably and offers no complaints. Reevaluation(s) Reevaluation #1: Delay in labs due to difficult stick. CT scan showing no acute intracranial pathology. Labs show mild hypernatremia, mildly elevated BUN, and Sp [place] in UA elevated all consistent with mild dehydration. Offered IVF however daughter would rather take her home and encourage PO fluids. There is evidence of infection. UA negative for infection and no episodes of diarrhea while in the ER. Abd is soft. Daughter would like to take her home and follow up with PCP in 1 week for repeat labs. She has plenty of care and support at home. She acknowledges overall decline with advancing Parkinson's dementia. Comfortable with d/c home in the care of her family. MDM - Female Genitourinary Medical Records Attestation: I reviewed the patient's medical records. Lab Data Attestation: I reviewed the patient's lab results. Result diagrams: 02/19/21 22:02 02/19/21 22:02 Labs: Lab Results 02/19/21 02/19/21 02/19/21 Range/Units 21:29 22:02 22:02 WBC 9.3 (4.8-10.8) X10*3/uL RBC 4.04 L (4.20-5.50) X10*6/uL Hgb 13.1 (12.0-16.0) g/dl Hct 39.1 (37-47) % MCV 96.8 (80-98) fL MCH 32.4 (27.0-33.0) pg MCHC 33.5 (31.0-35.0) g/dl RDW 12.3 (11.0-16.0) % Plt Count 171 (160-400) X10*3/uL MPV 11.2 (9.4-12.3) fL Immature Gran % (Auto) 0.2 (0.0-0.4) % Neut % (Auto) 62.4 (45-73) % Lymph % (Auto) 26.1 (20-40) % [place] % (Auto) 10.0 (2-11) % Eos % (Auto) 1.0 (0-4) % Baso % (Auto) 0.3 (0-2) % Lymph # (Auto) 2.4 (1.2-4.9) X10*3/uL [place] # (Auto) 0.9 (0.1-1.2) X10*3/uL Eos # (Auto) 0.1 (0.0-0.4) X10*3/uL Baso # (Auto) 0.0 (0.0-0.2) X10*3/uL Abs Immat Gran (auto) 0.02 (0.00-0.03) X10*3/uL Absolute Neuts (auto) 5.8 (2.0-8.3) X10*3/uL Absolute Nucleated RBC 0.000 (0.0-0.012) X10*3/uL Nucleated RBC % (auto) 0.0 (0.0-0.2) /100WBC PT 28.6 H (9.9-13.0) SEC INR 2.5 H (0.9-1.1) APTT 42.3 H (24.1-38.0) SEC Sodium (135-145) mmol/L Potassium (3.3-5.1) mmol/L Chloride (96-108) mmol/L Carbon Dioxide (22-29) mmol/L Anion Gap (12-20) BUN (9-16) mg/dL Creatinine (0.5-1.4) mg/dL Estim Creat Clear Calc Estimated GFR Random Glucose (60-115) mg/dL Calcium (8.4-10.2) mg/dL Magnesium (1.6-2.6) mg/dL Total Bilirubin (0.0-1.0) mg/dL Direct Bilirubin (0.0-0.5) mg/dL AST (5-31) U/L ALT (0-31) U/L Alkaline Phosphatase (39-117) U/L Total Protein (6.5-8.0) g/dL Albumin (3.5-5.0) g/dL Urine Color YELLOW Urine Appearance CLEAR Urine pH 5.5 (5.0-8.0) Ur Specific [place] >= 1.030 H (1.005-1.025) Urine Protein NEG (NEG-TRACE) MG/DL Urine Glucose (UA) NEG (NEG) MG/DL Urine Ketones 5 (NEG) MG/DL Urine Blood 1+ H (NEG) Urine Nitrite NEG (NEG) Ur Leukocyte Esterase NEG (NEG) Urine RBC 1-4 (0) /HPF Urine WBC 1-4 (0-4) /HPF Ur Squamous Epith Cells TRACE /LPF Urine Bacteria TRACE /LPF Hyaline Casts 0-2 /LPF 02/19/21 Range/Units 22:02 WBC (4.8-10.8) X10*3/uL RBC (4.20-5.50) X10*6/uL Hgb (12.0-16.0) g/dl Hct (37-47) % MCV (80-98) fL MCH (27.0-33.0) pg MCHC (31.0-35.0) g/dl RDW (11.0-16.0) % Plt Count (160-400) X10*3/uL MPV (9.4-12.3) fL Immature Gran % (Auto) (0.0-0.4) % Neut % (Auto) (45-73) % Lymph % (Auto) (20-40) % [place] % (Auto) (2-11) % Eos % (Auto) (0-4) % Baso % (Auto) (0-2) % Lymph # (Auto) (1.2-4.9) X10*3/uL [place] # (Auto) (0.1-1.2) X10*3/uL Eos # (Auto) (0.0-0.4) X10*3/uL Baso # (Auto) (0.0-0.2) X10*3/uL Abs Immat Gran (auto) (0.00-0.03) X10*3/uL Absolute Neuts (auto) (2.0-8.3) X10*3/uL Absolute Nucleated RBC (0.0-0.012) X10*3/uL Nucleated RBC % (auto) (0.0-0.2) /100WBC PT (9.9-13.0) SEC INR (0.9-1.1) APTT (24.1-38.0) SEC Sodium 146 H (135-145) mmol/L Potassium 3.8 (3.3-5.1) mmol/L Chloride 110 H (96-108) mmol/L Carbon Dioxide 25 (22-29) mmol/L Anion Gap 15 (12-20) BUN 23 H (9-16) mg/dL Creatinine 0.93 (0.5-1.4) mg/dL Estim Creat Clear Calc 36.4 Estimated GFR 59 Random Glucose 122 H D (60-115) mg/dL Calcium 10.3 H D (8.4-10.2) mg/dL Magnesium 2.3 (1.6-2.6) mg/dL Total Bilirubin 0.6 (0.0-1.0) mg/dL Direct Bilirubin < 0.2 (0.0-0.5) mg/dL AST 19 (5-31) U/L ALT 8 (0-31) U/L Alkaline Phosphatase 100 (39-117) U/L Total Protein 7.7 (6.5-8.0) g/dL Albumin 4.2 (3.5-5.0) g/dL Urine Color Urine Appearance Urine pH (5.0-8.0) Ur Specific [place] (1.005-1.025) Urine Protein (NEG-TRACE) MG/DL Urine Glucose (UA) (NEG) MG/DL Urine Ketones (NEG) MG/DL Urine Blood (NEG) Urine Nitrite (NEG) Ur Leukocyte Esterase (NEG) Urine RBC (0) /HPF Urine WBC (0-4) /HPF Ur Squamous Epith Cells /LPF Urine Bacteria /LPF Hyaline Casts /LPF ECG Data Attestation: I personally reviewed and interpreted this ECG as follows: ECG interpretation date: 02/20/21 ECG interpretation time: 20:00 Prior ECG tracings: available for review Interpretation: sinus rhythm with sinus arrythmia, HR 65 bpm, normal pR interval, No ST segment elevations or depressions. Discharge Plan Discharge Clinical Impression: Dehydration, Hypernatremia Patient Disposition: Home, Self-Care Instructions: Dehydration (ED), Hypernatremia (ED) Additional Instructions: Your lab workup today showed evidence of mild dehydration. Recommend increasing your water intake. Follow up with your doctor in 1 week for repeat lab workup and follow up. If you develop new or worsening symptoms call 911 or come back to the ER for further evaluation. Prescriptions: No Action quetiapine 25 mg tablet 25 mg PO BID RF: 0 cetirizine 10 mg tablet 10 mg PO DAILY PRN (Reason: allergies) RF: 0 clonazepam 0.5 mg tablet 0.5 mg PO BID PRN (Reason: anxiety) RF: 0 warfarin 2.5 mg tablet 2.5 tab PO DAILY@1600 RF: 0 Hold Instructions: Resume on 02/05/21. resume once INR is 3 or less paroxetine HCl 20 mg tablet 20 mg PO QAM RF: 0 pramipexole 0.25 mg tablet 0.25 mg PO TID RF: 0 omeprazole 20 mg capsule,delayed release(DR/EC) 20 mg PO DAILY RF: 0 multivitamin Tablet 1 tab PO DAILY RF: 0 carbidopa-levodopa 25-100 mg tablet 2 tab PO 0700,1100,1500,1900 RF: 0 cefuroxime axetil 250 mg tablet 250 mg PO BID Qty: 10 RF: 0 Interventions: ED Discharge Assessment Last Done: 02/19/21 23:49 Discharge Date/Time: 02/19/21 23:53
[2021-02-19 21:40] LABS: Glucose Urine UA NEG (NEG); Leukocyte Esterase Urine NEG (NEG); Nitrite Urine NEG (NEG); PH 5.5 (5.0-8.0); Specific Gravity - Urine >= 1.030 (1.005-1.025); Urine Blood 1+ (NEG); Urine Ketones 5 MG/DL (NEG); Urine Protein NEG (NEG-TRACE)
[2021-02-19 21:41] LABS: Appearance Urine CLEAR; Color Urine YELLOW
[2021-02-19 22:01] LABS: Bacteria Urine TRACE /LPF; Hyaline Casts Urine 0-2 /LPF; Squamous Epithelial Cell Urine TRACE /LPF
[2021-02-19 22:07] LABS: MANUAL DIFF FLAG NO
[2021-02-19 22:08] LABS: Basophils Percent Auto 0.3 % (0-2); Eosinophils Absolute Auto 0.1 X10*3/uL (0.0-0.4); Hematocrit 39.1 % (37-47); Hemoglobin 13.1 g/dl (12.0-16.0); Imm Gran Abs Auto 0.02 X10*3/uL (0.00-0.03); Imm Gran Pct Auto 0.2 % (0.0-0.4); Lymphocytes Absolute Auto 2.4 X10*3/uL (1.2-4.9); Lymphocytes Percent Auto 26.1 % (20-40); Mean Corpuscular HGB Conc 33.5 g/dl (31.0-35.0); Mean Corpuscular Hemoglobin 32.4 pg (27.0-33.0); Mean Corpuscular Volume 96.8 fL (80-98); Mean Platelet Volume 11.2 fL (9.4-12.3); Monocytes Absolute Auto 0.9 X10*3/uL (0.1-1.2); Neutrophils Absolute Auto 5.8 X10*3/uL (2.0-8.3); Neutrophils Percent Auto 62.4 % (45-73); Platelet Count 171 X10*3/uL (160-400); Red Blood Count 4.04 X10*6/uL (4.20-5.50); Red Cell Distribution Width 12.3 % (11.0-16.0); White Blood Count 9.3 X10*3/uL (4.8-10.8)
[2021-02-19 22:27] LABS: INTERNATIONAL NORM RATIO 2.5 (0.9-1.1); Prothrombin Time 28.6 SEC (9.9-13.0)
[2021-02-19 22:30] LABS: Partial Thromboplastin Time 42.3 SEC (24.1-38.0)
[2021-02-19 22:55] LABS: Alanine Aminotransferase 8 U/L (0-31); Albumin Level 4.2 g/dL (3.5-5.0); Alkaline Phosphatase 100 U/L (39-117); Anion Gap 15 (12-20); Aspartate Amino Transferase 19 U/L (5-31); Bilirubin Direct < 0.2 mg/dL (0.0-0.5); Bilirubin Total 0.6 mg/dL (0.0-1.0); Blood Urea Nitrogen 23 mg/dL (9-16); Calcium 10.3 mg/dL (8.4-10.2); Carbon Dioxide 25 mmol/L (22-29); Chloride 110 mmol/L (96-108); Creatinine Clr Calc Pharmacy 36.4; Estimated Glomerular Filt Rate 59; Glucose Random 122 mg/dL (60-115); Magnesium 2.3 mg/dL (1.6-2.6); Potassium 3.8 mmol/L (3.3-5.1); Sodium 146 mmol/L (135-145); Total Protein 7.7 g/dL (6.5-8.0)
--- NOTE | 2021-02-19 23:46 | PC.NURSE ---
1st encounter with patient for dc purposes. Pt awake, alert and oriented to baseline. Daughter requesting to bring patient home. skin warm and dry. Resp unlabored. denies n/v. No c/o pain. IV removed. Daughter assisted patient with changing and into wheelchair. No distress noted and no complaints offered by patient.
== END 2021-02-19 23:53 | disposition home or self-care (01) ==
PROVIDERS: Physician Assistant; Emergency Provider Emergency Medicine Emergency Medical Services
DX: E86.0 Dehydration (principal); E87.0 Hyperosmolality and hypernatremia; G20 Parkinson's disease; F02.80 Dementia in other diseases classified elsewhere, unspecified severity, without behavioral disturbance, psychotic disturbance, mood disturbance, and anxiety; Z87.440 Personal history of urinary (tract) infections; Z87.442 Personal history of urinary calculi; Z86.718 Personal history of other venous thrombosis and embolism; Z86.711 Personal history of pulmonary embolism; Z79.01 Long term (current) use of anticoagulants; Z79.899 Other long term (current) drug therapy
CPT/HCPCS: 36415; 70450; 80048; 80076; 81001; 83735; 85025; 85610; 85730; 93005; 99283; 99284

== ENCOUNTER 2021-05-01 10:26 | Outpatient (REF) | payer OTHER, SELFPAY ==
--- NOTE | ~2021-05-01 | US_ITS ---
EXAMINATION: US RETROPERITONEAL LIMITED (RENAL ONLY) CLINICAL INFORMATION: Calculus kidney. COMPARISON: Renal ultrasound 06/22/2020 and 05/13/2019. CT abdomen and pelvis 06/12/2020. KUB 04/20/2019. TECHNIQUE: Real-time imaging of the kidneys. FINDINGS: RIGHT KIDNEY: 8.5 x 4.7 x 4.9 cm (SAG x AP x TRV). The kidney is normal in size, contour, and echogenicity. Renal cortical thickness is normal. No focal parenchymal lesions or hydronephrosis. There are two echogenic stones seen in the upper pole measuring 0.6 x 0.5 and 0.2 x 0.4 cm without caliectasis. LEFT KIDNEY: 9.1 x 4.9 x 4.2 cm (SAG x AP x TRV). The kidney is normal in size, contour, and echogenicity. Renal cortical thickness is normal. No focal parenchymal lesions or hydronephrosis. There are several echogenic calculi. 1. Clusters of echogenic calculi upper pole measuring 0.6 x 0.5 cm. 2. In midpole echogenic calculi measuring 0.4 x 0.4 cm. 3. In the lower pole echogenic calculi measuring 0.3 x 0.4 cm. 4. Midpole echogenic calculi measuring 0.4 x 0.2 cm. US/US renal BI IMPRESSION: 1. Bilateral echogenic renal calculi without caliectasis or hydronephrosis. 2. A solitary echogenic calculi seen in the upper pole right kidney and clusters of echogenic stone lower pole left kidney on the previous ultrasound 06/22/2020. There are more numerous calculi at this time.
== END 2021-05-01 10:27 | disposition home or self-care (01) ==
LOC: HO.US 10:26
PROVIDERS: Visit Provider Urology
DX: N20.0 Calculus of kidney (principal)
CPT/HCPCS: 76775

== ENCOUNTER → 2021-05-22 10:01 | Outpatient (BNVA) | payer OTHER, SELFPAY | DX: N20.0 Calculus of kidney (principal) | CPT/HCPCS: 99212 ==

== ENCOUNTER 2021-07-15 07:58 | Day surgery (SDC) | payer OTHER, SELFPAY ==
[2021-07-09 11:13] VITALS: BMI 27.8
--- NOTE | 2021-07-10 12:37 | HO.ANESPROP2 ---
Documented by User: Jennifer Hoffman NP 07/10/21 12:39 HPI - Anesthesia Eval Consult details Narrative: 70yo F for Right Cystoscopy, Ureteroroscopy, Retro, Laser,poss stent warfarin for DVT/PE hx s/p cysto etc 10/2020 with GA-LMA 3 Cardiac cleared at [facility] Active Problems Active Problems: All Active Problems (Updated 02/20/21 @ 00:01 by Genevieve Zhu) Acute encephalopathy (Acute) Supratherapeutic INR (Acute) Acute UTI (Acute) Acute UTI (Acute) Acute dehydration (Acute) CARMEN (acute kidney injury) (Acute) Encephalopathy (Acute) Nephrolithiasis (Acute) Dementia (Acute) Varicose veins of both lower extremities (Acute) Stress incontinence (Acute) Recurrent UTI (Acute) Depressive disorder (Acute) Osteopenia (Acute) Pulmonary embolus (Acute) Current use of intermediate anticoagulation (Acute) History of DVT (deep vein thrombosis) (Acute) Parkinson disease (Acute) Past Medical History Medical History Anxiety Depression GERD (gastroesophageal reflux disease) History of atrial fibrillation History of DVT (deep vein thrombosis) Hx of sepsis Kidney stones Parkinson disease Parkinson's disease dementia Scoliosis Surgical History Surgical History History of cystoscopy History of lithotripsy Hx of section Hx of knee surgery Social History Social History Household Members: Family Household Members Other:: daughter Housing: Unknown / Unable to assess Are you a primary skin care instructor to a significant other at home: No Do you presently have visiting nurse or other home services: Yes (Home Health Aid) Unable to assess alcohol history related to: Unable to respond Alcohol intake: never Patient Tobacco Use Status: Never used Tobacco Second Hand Smoke Exposure: No Advance Directives: Yes Advance Directives Information Provided: No Advance Directives on File: Yes Advance Directives Date on File: 10/23/20 service: No Current occupational status: unemployed and disabled Meds Allergies Allergy/AdvReac Type Severity Reaction Status Date / Time amoxicillin [AMOXICILLIN] Allergy Intermediate Rash Verified 07/09/21 11:11 Home Medications Medication Instructions Recorded Confirmed Last Taken Type carbidopa 25 mg-levodopa 100 mg 2 tab PO 0700,1100,1500,1900 06/12/20 07/09/21 06/11/20 History tablet cetirizine 10 mg tablet 10 mg PO DAILY PRN 06/12/20 07/09/21 06/11/20 History clonazepam 0.5 mg tablet 0.5 mg PO BID PRN 06/12/20 07/09/21 06/11/20 History multivitamin 1 tab PO DAILY 06/12/20 07/09/21 06/11/20 History omeprazole 20 mg capsule,delayed 20 mg PO DAILY 06/12/20 07/09/21 06/10/20 History release paroxetine HCl 20 mg tablet 20 mg PO QAM 06/12/20 07/09/21 06/10/20 History pramipexole 0.25 mg tablet 0.25 mg PO TID 06/12/20 07/09/21 06/11/20 History quetiapine 25 mg tablet 25 mg PO BID 06/12/20 07/09/21 06/11/20 History warfarin 2.5 mg tablet 2.5 tab PO DAILY@1600 06/12/20 07/09/21 10/17/20 History Exam Exam Date and Time: July 10, 2021 1237 Height,Weight and Vital Signs: Height 4 ft 7 in Weight 54.431 kg Pertinent Lab Results Pertinent Lab Results: Laboratory Tests 02/19/21 02/19/21 22:02 22:02 WBC 9.3 Hgb 13.1 Hct 39.1 Plt Count 171 Sodium 146 H Potassium 3.8 Chloride 110 H Carbon Dioxide 25 BUN 23 H Creatinine 0.93 Narrative Narrative: EKG 05/2021 NSR @ 90 ?LVH Inf infarct (old) Assessment and Plan Assessment Anesthesia Assessment: Chart Reviewed Documented by User: Naty Lemon MD 07/15/21 09:16 [facility] Past Medical History Medical History Anxiety Depression GERD (gastroesophageal reflux disease) History of atrial fibrillation History of DVT (deep vein thrombosis) Hx of sepsis Kidney stones Parkinson disease Parkinson's disease dementia Scoliosis Surgical History Surgical History History of cystoscopy History of lithotripsy Hx of section Hx of knee surgery Social History Social History Household Members: Family Household Members Other:: daughter Housing: Unknown / Unable to assess Are you a primary skin care instructor to a significant other at home: No Do you presently have visiting nurse or other home services: Yes (Home Health Aid) Unable to assess alcohol history related to: Unable to respond Alcohol intake: never Patient Tobacco Use Status: Never used Tobacco Second Hand Smoke Exposure: No Advance Directives: Yes Advance Directives Information Provided: No Advance Directives on File: Yes Advance Directives Date on File: 10/23/20 service: No Current occupational status: unemployed and disabled Meds Allergies Allergy/AdvReac Type Severity Reaction Status Date / Time amoxicillin [AMOXICILLIN] Allergy Intermediate Rash Verified 07/09/21 11:11 Home Medications Medication Instructions Recorded Confirmed Last Taken Type carbidopa 25 mg-levodopa 100 mg 2 tab PO 0700,1100,1500,1900 06/12/20 07/09/21 06/11/20 History tablet cetirizine 10 mg tablet 10 mg PO DAILY PRN 06/12/20 07/09/21 06/11/20 History clonazepam 0.5 mg tablet 0.5 mg PO BID PRN 06/12/20 07/09/21 06/11/20 History multivitamin 1 tab PO DAILY 06/12/20 07/09/21 06/11/20 History omeprazole 20 mg capsule,delayed 20 mg PO DAILY 06/12/20 07/09/21 06/10/20 History release paroxetine HCl 20 mg tablet 20 mg PO QAM 06/12/20 07/09/21 06/10/20 History pramipexole 0.25 mg tablet 0.25 mg PO TID 06/12/20 07/09/21 06/11/20 History quetiapine 25 mg tablet 25 mg PO BID 06/12/20 07/09/21 06/11/20 History warfarin 2.5 mg tablet 2.5 tab PO DAILY@1600 06/12/20 07/09/21 10/17/20 History Exam Airway Mallampati Class: II TM Dist: >3cm Neck ROM: Full
[2021-07-15] VITALS (7 sets, daily range): BP systolic 109–139; BP diastolic 52–72; PULSE 62–87; RESP 16–17; TEMP 36.5–36.7; O2SAT 96–100
--- NOTE | 2021-07-15 08:18 | PC.NURSE ---
called the lab for the seconf time for a lab draw
[2021-07-15 09:04] LABS: INTERNATIONAL NORM RATIO 1.1 (0.9-1.1); Prothrombin Time 12.7 SEC (9.9-13.0)
--- NOTE | 2021-07-15 09:17 | MHC.SHP ---
Pre-Procedural Eval Section A Date of Service: 07/15/21 The patient is an INPATIENT: No Changes since office visit: No Cold of Flu in the past 2 weeks, No New Medical Problems, No Changes in Medication and No Patient answered all questions The History & Physical has been completed within 30 days and I have reviewed it.: Yes Section B Chief Complaint: calculus of kidney Details of Present Illness: cystoscopy, right retrograde, right ureteroscopy with laser lithotripsy and stent placement Relevant Family History (Specify if Yes): No Relevant Social History: Other (specify) Present Medications: see Short Stay Collaborative assessment Medical History: Significant History History of Previous Operations: Relevant previous surgery/procedure and date(s) Allergies: Allergies Allergy/AdvReac Type Severity Reaction Status Date / Time amoxicillin [AMOXICILLIN] Allergy Intermediate Rash Verified 07/09/21 11:11 Review of Systems Sugical H&P ROS: Negative: Constitution, Cardiovascular, Respiratory, Neurological, Psychiatric, Hem-Onc, Allergic/Immunologic, Gastrointestinal, Genitourinary, Musculoskeletal, Integumentary, Endocrine and Eyes/Ears/Nose/Throat Exam Surgical H&P Exam: Normal: HEENT, Normal: Heart, Normal: Lungs, Normal: Extremities, Normal: Abdomen, Normal: Skin and Normal: Neurological Plan Diagnosis/Plan: Unchanged ( right-sided ureteroscopy with laser lithotripsy and stent placement) I have reviewed the history and physical and performed a pertinent physical examination on my patient. No changes have occurred unless specified.
[2021-07-15] MEDS: Lactated Ringers 1,000 ML 100 ML IVCONT (09:20)
--- NOTE | 2021-07-15 10:47 | P.OP_ITS ---
Operative Note Operative Note Date of Service: 07/15/21 Narrative: PreOperative Diagnosis: Right renal stone Post Operative Diagnosis: right renal stone Procedure: - cystoscopy, right retrograde - right dilatation of ureteric orifice under fluoroscopy - right ureteroscopy, laser lithotripsy - right stent placement Surgeon: Dr Rodríguez Tilley Anesthesia: General Indications for procedure: original presentation with bilateral stones. Left side previously treated. Having persistent urinary symptoms. On imaging does have fragments on left side and a stone on the right side. Will proceed with ureteroscopy laser lithotripsy on the right side. may need follow-up procedure on left side Procedure: After informed consent was verified patient was brought to the operating placed in supine position. Anesthesia was administered per protocol. Patient was placed in modified dorsal lithotomy position and prepped and draped in a sterile fashion. Safety pause time-out and side of surgery confirmed. Antibiotics confirmed. 22 [place] cystoscope inserted per urethra. Bladder examined is entirety. Right ureteric orifice cannulated retrograde examination performed. No obvious stone filling defect. Sensor guidewire placed. Ureteric orifice dilated with internal cannula under anesthesia. Ureteric access sheath placed Flexible digital ureteroscopy performed. Stone encountered in upper pole imbedded in papilla. Using the 272 micron holmium laser the stone was broken into small pieces. These were too small to basket. Decision was made for placement of stent. All other calices were examined no other stone was seen. There was minus submucosal calcification but none of it tomas to the level of stone formation. Sensor wire placed to the level renal pelvis. Digital scope and access sheath removed. Six [place] by 22 cm stent placed. She is 4 ft 10. Good coil seen within the renal pelvis and in the bladder. Bladder was emptied. She tolerated procedure well was extubated in the operating room. Transferred in stable condition to the recovery area. Pathology: Drains: Six [place] by 22 cm stent
[2021-07-15] MEDS: Phenazopyridine HCL 100 MG TABLET PO (11:22)
== END 2021-07-15 12:33 | disposition home or self-care (01) ==
PROVIDERS: Nurse Practitioner; Visit Provider Urology
PROC: (CPT 52356; principal; 2021-07-15 09:00)
DX: N20.0 Calculus of kidney (principal); Z87.442 Personal history of urinary calculi; G20 Parkinson's disease; F02.80 Dementia in other diseases classified elsewhere, unspecified severity, without behavioral disturbance, psychotic disturbance, mood disturbance, and anxiety; S00.83XA Contusion of other part of head, initial encounter; W19.XXXA Unspecified fall, initial encounter; Y93.9 Activity, unspecified; Y92.009 Unspecified place in unspecified non-institutional (private) residence as the place of occurrence of the external cause; Y99.9 Unspecified external cause status; I48.91 Unspecified atrial fibrillation; Z86.718 Personal history of other venous thrombosis and embolism; Z79.01 Long term (current) use of anticoagulants; Z86.19 Personal history of other infectious and parasitic diseases; Z88.1 Allergy status to other antibiotic agents
CPT/HCPCS: 52356; 36415; 85610; C1758; C1769; C1894; C2617; J1100; J1956; J2250; J2405; J3010; Q9967

== ENCOUNTER → 2021-07-23 10:18 | Outpatient (BNVA) | payer OTHER, SELFPAY | PROVIDERS: Visit Provider Urology | DX: N20.0 Calculus of kidney (principal) | CPT/HCPCS: 99212 ==

== ENCOUNTER 2021-08-01 11:58 | Emergency (ER) | payer OTHER, SELFPAY ==
--- NOTE | ~2021-08-01 | CT_ITS ---
EXAMINATION: CT HEAD WITHOUT CONTRAST CLINICAL INFORMATION: Fall on Coumadin. COMPARISON: CT brain 02/19/2021 TECHNIQUE: Contiguous axial imaging was performed from the skull base to vertex without intravenous administration of contrast. This CT examination was performed using dose optimization techniques as appropriate, variously including the following: *Automated exposure control *Adjustment of mA and/or kV according to patient size (this includes techniques or standardized protocols for targeted exams where dose is matched to indication/reason for exam; i.e. extremities or head) *Use of iterative reconstruction technique DLP: 1310 mGy-cm FINDINGS: There is no evidence of acute intracranial hemorrhage or territorial infarction. No abnormal mass effect or midline shift is seen. [place] to white matter differentiation is well preserved. No extra-axial fluid collections are identified. The lateral ventricles are enlarged and so are the cortical sulci. There is diffuse periventricular hypodensity in both cerebral hemispheres without mass effect. The osseous structures and soft tissues are normal. There is a large polyp or retention cyst left maxillary and small polyp or retention cyst right maxillary sinus. Rest of the paranasal sinuses and mastoid air cells are well-aerated. CT/CT head/brain wo con IMPRESSION: No acute intracranial process seen. Age-related cerebral volume loss with chronic small vessel ischemic changes.
--- NOTE | ~2021-08-01 | XR_ITS ---
EXAMINATION: XR CHEST CLINICAL INFORMATION: Weakness. COMPARISON: Chest 02/01/2021 TECHNIQUE: Frontal view of the chest was obtained. FINDINGS: The lungs are well-expanded and clear. Heart size and pulmonary vascularity is normal. No gross bony abnormality seen. XR/XR chest 1V IMPRESSION: Unremarkable chest exam.
[2021-08-01 12:17] VITALS: BP 105/75; PULSE 82; RESP 18; TEMP 36.7; O2SAT 96; BMI 27.3
--- NOTE | 2021-08-01 12:36 | ED.AMS ---
HPI - Altered Mental Status General Chief Complaint: Urogenital-Female Stated Complaint: kidney infection Time Seen by Provider: 08/01/21 12:33 Source: patient Mode of arrival: ambulatory Limitations: altered mental status History of Present Illness HPI narrative: cultures in past E Coli S to Levofloxacin complaint: other (diff sleeping, poor eating told that tests from Thursday + UTI no antibiotics started referred to ED) Onset (ago): day(s) (Thursday) Timing confirmed by: family member and caregiver Severity: moderate Consistency of symptoms: waxing and waning Context: history of similar presentation (with UTI) Associated symptoms: loss of appetite, malaise, weakness and other (poor sleeping, did slip and fall off shower chair today) Related Data Home Medications Medication Instructions Recorded Confirmed carbidopa 25 mg-levodopa 100 mg 2 tab PO 0700,1100,1500,1900 06/12/20 07/09/21 tablet cetirizine 10 mg tablet 10 mg PO DAILY PRN 06/12/20 07/09/21 clonazepam 0.5 mg tablet 0.5 mg PO BID PRN 06/12/20 07/09/21 multivitamin 1 tab PO DAILY 06/12/20 07/09/21 omeprazole 20 mg capsule,delayed 20 mg PO DAILY 06/12/20 07/09/21 release paroxetine HCl 20 mg tablet 20 mg PO QAM 06/12/20 07/09/21 pramipexole 0.25 mg tablet 0.25 mg PO TID 06/12/20 07/09/21 quetiapine 25 mg tablet 25 mg PO BID 06/12/20 07/09/21 warfarin 2.5 mg tablet 2.5 tab PO DAILY@1600 06/12/20 07/09/21 Previous Rx's Medication Instructions Recorded phenazopyridine 100 mg tablet 100 mg PO TID PRN 4 Days #12 tab 07/15/21 (Pyridium) sulfamethoxazole 400 1 tab PO DAILY #10 tab 07/15/21 mg-trimethoprim 80 mg tablet (Bactrim) tamsulosin 0.4 mg capsule 0.4 mg PO BEDTIME 14 Days #14 cap 07/15/21 tramadol 50 mg tablet 50 mg PO Q6H PRN #14 tab 07/15/21 pyridoxine (vitamin B6) 100 mg 100 mg PO DAILY 90 Days #90 tab 07/23/21 tablet levofloxacin 250 mg tablet 250 mg PO DAILY 6 Days #6 tab 08/01/21 Allergies Allergy/AdvReac Type Severity Reaction Status Date / Time amoxicillin [AMOXICILLIN] Allergy Intermediate Rash Verified 07/09/21 11:11 Review of Systems Review of Systems: ROS unable to be obtained due to altered mental status [facility] Past Medical History Source: old records reviewed and obtained from family Medical History Anxiety Depression GERD (gastroesophageal reflux disease) History of atrial fibrillation History of DVT (deep vein thrombosis) Hx of sepsis Kidney stones Parkinson disease Parkinson's disease dementia Scoliosis Surgical History History of cystoscopy History of lithotripsy Hx of section Hx of knee surgery Social History Social History Household Members: Family Household Members Other:: daughter Housing: Unknown / Unable to assess Are you a primary floor care technician to a significant other at home: No Do you presently have visiting nurse or other home services: Yes (Home Health Aid) Unable to assess alcohol history related to: Unable to respond Alcohol intake: unknown Patient Tobacco Use Status: Never used Tobacco Second Hand Smoke Exposure: No Use of substances other than those prescribed or required for medical reasons: Unknown Advance Directives: Yes Advance Directives on File: Yes Advance Directives Date on File: 10/23/20 service: No Current occupational status: unemployed and disabled Physical Exam Vital Signs: Vital Signs: Last Vital Signs Temp 98.7 F 08/01/21 15:55 Pulse 84 08/01/21 15:55 Resp 16 08/01/21 15:55 BP 151/78 H 08/01/21 15:55 Pulse Ox 98 08/01/21 15:55 BMI result Body Mass Index 27.3 Appearance: Alert. Oriented at baseline pleasantly confused, eating animal crackers. No acute distress. Eyes: Pupils equal, round and reactive to light. ENT: Pharynx normal. Neck: Normal inspection. Neck supple. CVS: Normal heart rate and rhythm. Pulses normal. Respiratory: No respiratory distress. Breath sounds normal. Abdomen: Soft and non-tender. Skin: Skin warm and dry. Normal skin color. Normal skin turgor. Extremities: No lower extremity edema. No calf ttp Neuro: Oriented to person No motor deficit. No sensory deficit. Course Course Course Narrative: head CT negative, Cr stable, INR 1.6, trace bacteria but no signs of sepsis will start on low dose levofloxacin from prior cultures given change in behaviors and trace bacteria in urine MDM - Altered Mental Status MDM Narrative Medical decision making narrative: 70 yo female with parkinsons, dementia, CARMEN, hx of nephrolithiasis recent stent removal 07/23 here with increased need and help with eating, poor sleep, did slip off shower chair this morning. Daughter called by PCP told to come to ED today given found to have UTI from UA on Thursday - at this time labs, cultures, CT head for ICH given coumadin use - S to levofloxacin in the past based off cultures. Dispo per results and findings. Lab Data Result diagrams: 08/01/21 13:35 08/01/21 15:51 Labs: Lab Results 08/01/21 08/01/21 08/01/21 Range/Units 13:35 13:35 13:35 WBC 8.4 (4.8-10.8) X10*3/uL RBC 3.90 L (4.20-5.50) X10*6/uL Hgb 12.6 (12.0-16.0) g/dl Hct 38.5 (37.0-47.0) % MCV 98.7 H (80.0-98.0) fL MCH 32.3 (27.0-33.0) pg MCHC 32.7 (31.0-35.0) g/dl RDW 12.3 (11.0-16.0) % Plt Count 297 (160-400) X10*3/uL MPV 10.4 (9.4-12.3) fL Immature Gran % (Auto) 0.1 (0.0-0.4) % Neut % (Auto) 72.3 (45-73) % Lymph % (Auto) 18.2 L (20-40) % [place] % (Auto) 9.1 (2-11) % Eos % (Auto) 0.2 (0-4) % Baso % (Auto) 0.1 (0-2) % Lymph # (Auto) 1.5 (1.2-4.9) X10*3/uL [place] # (Auto) 0.8 (0.1-1.2) X10*3/uL Eos # (Auto) 0.0 (0.0-0.4) X10*3/uL Baso # (Auto) 0.0 (0.0-0.2) X10*3/uL Abs Immat Gran (auto) 0.01 (0.00-0.03) X10*3/uL Absolute Neuts (auto) 6.0 (2.0-8.3) x10*3/uL Absolute Nucleated RBC 0.000 (0.0-0.012) X10*3/uL Nucleated RBC % (auto) 0.0 (0.0-0.2) /100WBC PT (9.9-13.0) SEC INR (0.9-1.1) Sodium (135-145) mmol/L Potassium (3.3-5.1) mmol/L Chloride (96-108) mmol/L Carbon Dioxide (22-29) mmol/L Anion Gap (12-20) BUN (9-16) mg/dL Creatinine (0.5-1.4) mg/dL Estim Creat Clear Calc Estimated GFR Random Glucose (60-115) mg/dL Lactic Acid (0.5-2.0) mmol/L Calcium (8.4-10.2) mg/dL Magnesium (1.6-2.6) mg/dL Total Bilirubin (0.0-1.0) mg/dL Direct Bilirubin (0.0-0.5) mg/dL AST (5-31) U/L ALT (0-31) U/L Alkaline Phosphatase (39-117) U/L Troponin I High Sens 6.6 (<3.5-17.0) ng/L Total Protein (6.5-8.0) g/dL Albumin (3.5-5.0) g/dL Lipase (8-78) U/L Urine Color Urine Appearance Urine pH (5.0-8.0) Ur Specific [place] (1.005-1.025) Urine Protein (NEG-TRACE) MG/DL Urine Glucose (UA) (NEG) MG/DL Urine Ketones (NEG) MG/DL Urine Blood (NEG) Urine Nitrite (NEG) Ur Leukocyte Esterase (NEG) Urine RBC (0) /HPF Urine WBC (0-4) /HPF Ur Squamous Epith Cells /LPF Urine Bacteria /LPF COVID-19 (FERNANDO) Negative (Negative) COVID-19 Clin Com See Note 08/01/21 08/01/21 08/01/21 Range/Units 15:51 15:51 15:51 WBC (4.8-10.8) X10*3/uL RBC (4.20-5.50) X10*6/uL Hgb (12.0-16.0) g/dl Hct (37.0-47.0) % MCV (80.0-98.0) fL MCH (27.0-33.0) pg MCHC (31.0-35.0) g/dl RDW (11.0-16.0) % Plt Count (160-400) X10*3/uL MPV (9.4-12.3) fL Immature Gran % (Auto) (0.0-0.4) % Neut % (Auto) (45-73) % Lymph % (Auto) (20-40) % [place] % (Auto) (2-11) % Eos % (Auto) (0-4) % Baso % (Auto) (0-2) % Lymph # (Auto) (1.2-4.9) X10*3/uL [place] # (Auto) (0.1-1.2) X10*3/uL Eos # (Auto) (0.0-0.4) X10*3/uL Baso # (Auto) (0.0-0.2) X10*3/uL Abs Immat Gran (auto) (0.00-0.03) X10*3/uL Absolute Neuts (auto) (2.0-8.3) x10*3/uL Absolute Nucleated RBC (0.0-0.012) X10*3/uL Nucleated RBC % (auto) (0.0-0.2) /100WBC PT 18.9 H (9.9-13.0) SEC INR 1.6 H (0.9-1.1) Sodium 141 (135-145) mmol/L Potassium 3.9 (3.3-5.1) mmol/L Chloride 108 (96-108) mmol/L Carbon Dioxide 24 (22-29) mmol/L Anion Gap 13 (12-20) BUN 21 H (9-16) mg/dL Creatinine 1.12 (0.5-1.4) mg/dL Estim Creat Clear Calc 37.7 Estimated GFR 48 Random Glucose 127 H (60-115) mg/dL Lactic Acid 1.8 (0.5-2.0) mmol/L Calcium 9.1 D (8.4-10.2) mg/dL Magnesium 2.2 (1.6-2.6) mg/dL Total Bilirubin 0.3 (0.0-1.0) mg/dL Direct Bilirubin < 0.2 (0.0-0.5) mg/dL AST 27 D (5-31) U/L ALT 19 (0-31) U/L Alkaline Phosphatase 75 D (39-117) U/L Troponin I High Sens (<3.5-17.0) ng/L Total Protein 6.9 (6.5-8.0) g/dL Albumin 4.0 (3.5-5.0) g/dL Lipase 65 (8-78) U/L Urine Color Urine Appearance Urine pH (5.0-8.0) Ur Specific [place] (1.005-1.025) Urine Protein (NEG-TRACE) MG/DL Urine Glucose (UA) (NEG) MG/DL Urine Ketones (NEG) MG/DL Urine Blood (NEG) Urine Nitrite (NEG) Ur Leukocyte Esterase (NEG) Urine RBC (0) /HPF Urine WBC (0-4) /HPF Ur Squamous Epith Cells /LPF Urine Bacteria /LPF COVID-19 (FERNANDO) (Negative) COVID-19 Clin Com 08/01/21 Range/Units 15:51 WBC (4.8-10.8) X10*3/uL RBC (4.20-5.50) X10*6/uL Hgb (12.0-16.0) g/dl Hct (37.0-47.0) % MCV (80.0-98.0) fL MCH (27.0-33.0) pg MCHC (31.0-35.0) g/dl RDW (11.0-16.0) % Plt Count (160-400) X10*3/uL MPV (9.4-12.3) fL Immature Gran % (Auto) (0.0-0.4) % Neut % (Auto) (45-73) % Lymph % (Auto) (20-40) % [place] % (Auto) (2-11) % Eos % (Auto) (0-4) % Baso % (Auto) (0-2) % Lymph # (Auto) (1.2-4.9) X10*3/uL [place] # (Auto) (0.1-1.2) X10*3/uL Eos # (Auto) (0.0-0.4) X10*3/uL Baso # (Auto) (0.0-0.2) X10*3/uL Abs Immat Gran (auto) (0.00-0.03) X10*3/uL Absolute Neuts (auto) (2.0-8.3) x10*3/uL Absolute Nucleated RBC (0.0-0.012) X10*3/uL Nucleated RBC % (auto) (0.0-0.2) /100WBC PT (9.9-13.0) SEC INR (0.9-1.1) Sodium (135-145) mmol/L Potassium (3.3-5.1) mmol/L Chloride (96-108) mmol/L Carbon Dioxide (22-29) mmol/L Anion Gap (12-20) BUN (9-16) mg/dL Creatinine (0.5-1.4) mg/dL Estim Creat Clear Calc Estimated GFR Random Glucose (60-115) mg/dL Lactic Acid (0.5-2.0) mmol/L Calcium (8.4-10.2) mg/dL Magnesium (1.6-2.6) mg/dL Total Bilirubin (0.0-1.0) mg/dL Direct Bilirubin (0.0-0.5) mg/dL AST (5-31) U/L ALT (0-31) U/L Alkaline Phosphatase (39-117) U/L Troponin I High Sens (<3.5-17.0) ng/L Total Protein (6.5-8.0) g/dL Albumin (3.5-5.0) g/dL Lipase (8-78) U/L Urine Color YELLOW Urine Appearance CLEAR Urine pH 6.0 (5.0-8.0) Ur Specific [place] 1.020 (1.005-1.025) Urine Protein TRACE (NEG-TRACE) MG/DL Urine Glucose (UA) NEG (NEG) MG/DL Urine Ketones 5 (NEG) MG/DL Urine Blood NEG (NEG) Urine Nitrite NEG (NEG) Ur Leukocyte Esterase 1+ H (NEG) Urine RBC 0 (0) /HPF Urine WBC 1-4 (0-4) /HPF Ur Squamous Epith Cells NONE /LPF Urine Bacteria TRACE /LPF COVID-19 (FERNANDO) (Negative) COVID-19 Clin Com ECG Data ECG #1: Attestation: I personally reviewed and interpreted this ECG as follows: ECG interpretation date: 08/01/21 ECG interpretation time: 16:51 Interpretation: Rate: 84 Rhythm: NSR [place]: left , LVH Normal P waves. Normal CASTRO. Normal QRS complex. ST T wave : nonspecific, no BETHANY qTC: normal prior studies: no acute ischemia The study has been interpreted contemporaneously by me. . Discharge Plan Discharge Clinical Impression: Bacteriuria Dementia Qualifiers: Dementia type: unspecified type Dementia behavioral disturbance: without behavioral disturbance Qualified Code(s): F03.90 - Unspecified dementia without behavioral disturbance Patient Disposition: Home, Self-Care Instructions: Dementia (ED), Urinary Tract Infection in Older Adults (ED) Additional Instructions: return to ED for any worsening symptoms or concerns INR 1.6 Prescriptions: New levofloxacin 250 mg tablet 250 mg PO DAILY 6 Days Qty: 6 RF: 0 No Action quetiapine 25 mg tablet 25 mg PO BID RF: 0 cetirizine 10 mg tablet 10 mg PO DAILY PRN (Reason: allergies) RF: 0 clonazepam 0.5 mg tablet 0.5 mg PO BID PRN (Reason: anxiety) RF: 0 warfarin 2.5 mg tablet 2.5 tab PO DAILY@1600 RF: 0 Hold Instructions: Resume on 02/05/21. resume once INR is 3 or less paroxetine HCl 20 mg tablet 20 mg PO QAM RF: 0 pramipexole 0.25 mg tablet 0.25 mg PO TID RF: 0 omeprazole 20 mg capsule,delayed release(DR/EC) 20 mg PO DAILY RF: 0 multivitamin Tablet 1 tab PO DAILY RF: 0 carbidopa-levodopa 25-100 mg tablet 2 tab PO 0700,1100,1500,1900 RF: 0 phenazopyridine [Pyridium] 100 mg tablet 100 mg PO TID PRN (Reason: spasm) 4 Days Qty: 12 RF: 0 sulfamethoxazole-trimethoprim [Bactrim] 400-80 mg tablet 1 tab PO DAILY Qty: 10 RF: 0 tramadol 50 mg tablet 50 mg PO Q6H PRN (Reason: pain (scale score 4-6)) Qty: 14 RF: 0 tamsulosin 0.4 mg capsule 0.4 mg PO BEDTIME 14 Days Qty: 14 RF: 0 pyridoxine (vitamin B6) 100 mg tablet 100 mg PO DAILY 90 Days Qty: 90 RF: 1 Referrals: Pipe Chambers MD [Primary Care Provider] - 2 days
[2021-08-01 13:40] LABS: MANUAL DIFF FLAG NO
[2021-08-01 13:43] LABS: Basophils Percent Auto 0.1 % (0-2); Eosinophils Percent Auto 0.2 % (0-4); Hematocrit 38.5 % (37.0-47.0); Hemoglobin 12.6 g/dl (12.0-16.0); Imm Gran Abs Auto 0.01 X10*3/uL (0.00-0.03); Imm Gran Pct Auto 0.1 % (0.0-0.4); Lymphocytes Absolute Auto 1.5 X10*3/uL (1.2-4.9); Lymphocytes Percent Auto 18.2 % (20-40); Mean Corpuscular HGB Conc 32.7 g/dl (31.0-35.0); Mean Corpuscular Hemoglobin 32.3 pg (27.0-33.0); Mean Corpuscular Volume 98.7 fL (80.0-98.0); Mean Platelet Volume 10.4 fL (9.4-12.3); Monocytes Absolute Auto 0.8 X10*3/uL (0.1-1.2); Monocytes Percent Auto 9.1 % (2-11); Neutrophils Percent Auto 72.3 % (45-73); Platelet Count 297 X10*3/uL (160-400); Red Cell Distribution Width 12.3 % (11.0-16.0); White Blood Count 8.4 X10*3/uL (4.8-10.8)
[2021-08-01 13:58] VITALS: BP 137/69; PULSE 90; RESP 18; TEMP 36.8; O2SAT 99
[2021-08-01 14:03] LABS: Troponin-I High Sensitivity 6.6 ng/L (<3.5-17.0)
[2021-08-01 14:13] LABS: COVID-19 Test Negative (Negative)
--- NOTE | 2021-08-01 14:25 | PC.NURSE ---
very difficult stick. unable to establish IV. aware. phlebotomy called for labs.
[2021-08-01 15:55] VITALS: BP 151/78; PULSE 84; RESP 16; TEMP 37.1; O2SAT 98
[2021-08-01 15:58] LABS: Appearance Urine CLEAR; Color Urine YELLOW; Glucose Urine UA NEG (NEG); Leukocyte Esterase Urine 1+ (NEG); Nitrite Urine NEG (NEG); UACC Culture Trigger YES; Urine Blood NEG (NEG); Urine Ketones 5 MG/DL (NEG); Urine Protein TRACE MG/DL (NEG-TRACE)
[2021-08-01 16:05] LABS: INTERNATIONAL NORM RATIO 1.6 (0.9-1.1); Prothrombin Time 18.9 SEC (9.9-13.0)
[2021-08-01 16:09] LABS: Lactic Acid 1.8 mmol/L (0.5-2.0)
[2021-08-01 16:11] LABS: Bacteria Urine TRACE /LPF; RBC Urine 0 /HPF (0)
--- NOTE | 2021-08-01 16:12 | ECG_ITS ---
Test Reason : GEN MED Blood Pressure : / mmHG Vent. Rate : 084 BPM Atrial Rate : 084 BPM P-R Int : 140 ms QRS Dur : 074 ms QT Int : 372 ms P-R-T Axes : 039 -05 026 degrees QTc Int : 439 ms Normal sinus rhythm Minimal voltage criteria for LVH, may be normal variant ( R in aVL ) Inferior infarct (cited on or before 19-FEB-2021) Abnormal ECG When compared with ECG of 19-FEB-2021 19:55, No significant change was found Referred By: Angela Oates Electronically Signed By:MEY CANO MD
[2021-08-01 16:16] LABS: Alanine Aminotransferase 19 U/L (0-31); Alkaline Phosphatase 75 U/L (39-117); Anion Gap 13 (12-20); Aspartate Amino Transferase 27 U/L (5-31); Bilirubin Direct < 0.2 mg/dL (0.0-0.5); Bilirubin Total 0.3 mg/dL (0.0-1.0); Blood Urea Nitrogen 21 mg/dL (9-16); Calcium 9.1 mg/dL (8.4-10.2); Carbon Dioxide 24 mmol/L (22-29); Chloride 108 mmol/L (96-108); Creatinine Clr Calc Pharmacy 37.7; Estimated Glomerular Filt Rate 48; Glucose Random 127 mg/dL (60-115); Lipase 65 U/L (8-78); Magnesium 2.2 mg/dL (1.6-2.6); Potassium 3.9 mmol/L (3.3-5.1); Sodium 141 mmol/L (135-145); Total Protein 6.9 g/dL (6.5-8.0)
[2021-08-01] MEDS: levoFLOXacin 250 MG TABLET PO (17:16)
== END 2021-08-01 17:25 | disposition home or self-care (01) ==
PROVIDERS: Emergency Provider Emergency Medicine; PCP Internal Medicine
DX: R82.71 Bacteriuria (principal); F03.90 Unspecified dementia, unspecified severity, without behavioral disturbance, psychotic disturbance, mood disturbance, and anxiety; Z20.822 Contact with and (suspected) exposure to COVID-19; Z87.440 Personal history of urinary (tract) infections; Z86.718 Personal history of other venous thrombosis and embolism; Z79.01 Long term (current) use of anticoagulants
CPT/HCPCS: 36415; 51701; 70450; 71045; 80048; 80076; 81001; 83605; 83690; 83735; 84484; 85025; 85610; 87040; 87086; 87635; 93005; 96365; 99284; 99285

== ENCOUNTER 2021-11-13 14:58 | Emergency (ER) | payer OTHER, SELFPAY ==
[2021-11-13 15:10] VITALS: BP 112/55; PULSE 78; RESP 17; TEMP 36.6; O2SAT 97; BMI 24.3
--- NOTE | 2021-11-13 17:20 | ED_ITS ---
HPI - Extremity Problem General Chief complaint: Extremity Problem Stated complaint: left leg swollen and red Time Seen by Provider: 11/13/21 15:49 Source: family Limitations: altered mental status History of Present Illness HPI Narrative: Patient with dementia on Coumadin for DVT and PE daughter brought her to the PCP for increased left leg swelling and redness for last 4 days apparently patient was scratching her left leg. No fever was noticed little bit off also today. Related Data Home Medications Medication Instructions Recorded Confirmed carbidopa 25 mg-levodopa 100 mg 2 tab PO 0700,1100,1500,1900 06/12/20 07/09/21 tablet cetirizine 10 mg tablet 10 mg PO DAILY PRN 06/12/20 07/09/21 clonazepam 0.5 mg tablet 0.5 mg PO BID PRN 06/12/20 07/09/21 multivitamin 1 tab PO DAILY 06/12/20 07/09/21 omeprazole 20 mg capsule,delayed 20 mg PO DAILY 06/12/20 07/09/21 release paroxetine HCl 20 mg tablet 20 mg PO QAM 06/12/20 07/09/21 pramipexole 0.25 mg tablet 0.25 mg PO TID 06/12/20 07/09/21 quetiapine 25 mg tablet 25 mg PO BID 06/12/20 07/09/21 warfarin 2.5 mg tablet 2.5 tab PO DAILY@1600 06/12/20 07/09/21 Previous Rx's Medication Instructions Recorded phenazopyridine 100 mg tablet 100 mg PO TID PRN 4 Days #12 tab 07/15/21 (Pyridium) sulfamethoxazole 400 1 tab PO DAILY #10 tab 07/15/21 mg-trimethoprim 80 mg tablet (Bactrim) tamsulosin 0.4 mg capsule 0.4 mg PO BEDTIME 14 Days #14 cap 07/15/21 tramadol 50 mg tablet 50 mg PO Q6H PRN #14 tab 07/15/21 pyridoxine (vitamin B6) 100 mg 100 mg PO DAILY 90 Days #90 tab 07/23/21 tablet levofloxacin 250 mg tablet 250 mg PO DAILY 6 Days #6 tab 08/01/21 cephalexin 500 mg capsule 500 mg PO QID 10 Days #40 cap 11/13/21 Allergies Allergy/AdvReac Type Severity Reaction Status Date / Time amoxicillin [AMOXICILLIN] Allergy Intermediate Rash Verified 07/09/21 11:11 Review of Systems Review of Systems: Yes Unobtainable due to mental status [facility] Past Medical History Medical History Anxiety Depression GERD (gastroesophageal reflux disease) History of atrial fibrillation History of DVT (deep vein thrombosis) Hx of sepsis Kidney stones Parkinson disease Parkinson's disease dementia Scoliosis Surgical History History of cystoscopy History of lithotripsy Hx of section Hx of knee surgery Social History Social History Household Members: Family Household Members Other:: daughter Housing: Unknown / Unable to assess Are you a primary client care representative to a significant other at home: No Do you presently have visiting nurse or other home services: Yes (Home Health Aid) Unable to assess alcohol history related to: Unable to respond Alcohol intake: unknown Patient Tobacco Use Status: Never used Tobacco Second Hand Smoke Exposure: No Advance Directives: Yes Advance Directives on File: Yes Advance Directives Date on File: 10/23/20 service: No Current occupational status: unemployed and disabled Physical Exam Vital Signs: Vital Signs: Last Vital Signs Temp 98.8 F 11/13/21 17:48 Pulse 88 11/13/21 20:03 Resp 16 11/13/21 20:03 BP 169/71 H 11/13/21 20:03 Pulse Ox 100 11/13/21 20:03 BMI result Body Mass Index 24.3 Appearance: Alert. Demented Eyes: No pallor ENT: Pharynx normal. Oral Mucosa moist Neck: Normal inspection. Neck supple. CVS: Normal heart rate and rhythm. Pulses normal. Respiratory: No respiratory distress. Equal air entry bilateral, no wheezing/rales/rhonchi Abdomen: Soft and nontender. Bowel sounds are present, no mass palpable, no CVA tenderness Skin: Skin warm and dry. Normal skin color. Normal skin turgor. Extremities: No lower extremity edema. No calf tenderness soft tissue swelling clinically hematoma left calf area along with slight redness at the lower leg with warmth Neuro: Alert and awake no focal deficit MDM - Extremity (Nontraumatic) MDM Narrative Medical decision making narrative: Patient on Coumadin with INR of 3.5 for DVT in the legs which happened few years ago not sure why she is still on Coumadin no clear-cut history of PE according to patient family. Patient had some bruising on the chin and the hematoma of the left leg likely from hitting to the side of the bed. No history of fall. has some erythematous rash on the left leg from scratching clinically cellulitis. Will apply a Kerlix dressing on the hematoma and give her Keflex for mild cellulitis. Will discharge patient home with family Lab Data Attestation: I reviewed the patient's lab results. Result diagrams: 11/13/21 17:57 11/13/21 17:57 Labs: Lab Results 11/13/21 11/13/21 11/13/21 Range/Units 17:57 17:57 17:57 WBC 9.5 (4.8-10.8) X10*3/uL RBC 2.99 L D (4.20-5.50) X10*6/uL Hgb 9.5 L D (12.0-16.0) g/dl Hct 29.1 L D (37.0-47.0) % MCV 97.3 (80.0-98.0) fL MCH 31.8 (27.0-33.0) pg MCHC 32.6 (31.0-35.0) g/dl RDW 12.8 (11.0-16.0) % Plt Count 378 D (160-400) X10*3/uL MPV 9.8 (9.4-12.3) fL Immature Gran % (Auto) 0.3 (0.0-0.4) % Neut % (Auto) 74.9 H (45-73) % Lymph % (Auto) 14.0 L (20-40) % [place] % (Auto) 10.0 (2-11) % Eos % (Auto) 0.7 (0-4) % Baso % (Auto) 0.1 (0-2) % Lymph # (Auto) 1.3 (1.2-4.9) X10*3/uL [place] # (Auto) 1.0 (0.1-1.2) X10*3/uL Eos # (Auto) 0.1 (0.0-0.4) X10*3/uL Baso # (Auto) 0.0 (0.0-0.2) X10*3/uL Abs Immat Gran (auto) 0.03 (0.00-0.03) X10*3/uL Absolute Neuts (auto) 7.1 (2.0-8.3) x10*3/uL Absolute Nucleated RBC 0.000 (0.0-0.012) X10*3/uL Nucleated RBC % (auto) 0.0 (0.0-0.2) /100WBC PT 41.3 H (9.9-13.0) SEC INR 3.5 H (0.9-1.1) Sodium 143 (135-145) mmol/L Potassium 5.1 D (3.3-5.1) mmol/L Chloride 110 H (96-108) mmol/L Carbon Dioxide 26 (22-29) mmol/L Anion Gap 12 (12-20) BUN 20 H (9-16) mg/dL Creatinine 0.84 (0.5-1.4) mg/dL Estim Creat Clear Calc 46.9 Estimated GFR > 60 Random Glucose 117 H (60-115) mg/dL Calcium 9.3 (8.4-10.2) mg/dL Total Bilirubin 0.5 (0.0-1.0) mg/dL AST 25 (5-31) U/L ALT 7 (0-31) U/L Alkaline Phosphatase 78 (39-117) U/L Total Protein 6.5 (6.5-8.0) g/dL Albumin 3.5 (3.5-5.0) g/dL Urine Color Urine Appearance Urine pH (5.0-8.0) Ur Specific [place] (1.005-1.025) Urine Protein (NEG-TRACE) MG/DL Urine Glucose (UA) (NEG) MG/DL Urine Ketones (NEG) MG/DL Urine Blood (NEG) Urine Nitrite (NEG) Ur Leukocyte Esterase (NEG) 11/13/21 Range/Units 19:12 WBC (4.8-10.8) X10*3/uL RBC (4.20-5.50) X10*6/uL Hgb (12.0-16.0) g/dl Hct (37.0-47.0) % MCV (80.0-98.0) fL MCH (27.0-33.0) pg MCHC (31.0-35.0) g/dl RDW (11.0-16.0) % Plt Count (160-400) X10*3/uL MPV (9.4-12.3) fL Immature Gran % (Auto) (0.0-0.4) % Neut % (Auto) (45-73) % Lymph % (Auto) (20-40) % [place] % (Auto) (2-11) % Eos % (Auto) (0-4) % Baso % (Auto) (0-2) % Lymph # (Auto) (1.2-4.9) X10*3/uL [place] # (Auto) (0.1-1.2) X10*3/uL Eos # (Auto) (0.0-0.4) X10*3/uL Baso # (Auto) (0.0-0.2) X10*3/uL Abs Immat Gran (auto) (0.00-0.03) X10*3/uL Absolute Neuts (auto) (2.0-8.3) x10*3/uL Absolute Nucleated RBC (0.0-0.012) X10*3/uL Nucleated RBC % (auto) (0.0-0.2) /100WBC PT (9.9-13.0) SEC INR (0.9-1.1) Sodium (135-145) mmol/L Potassium (3.3-5.1) mmol/L Chloride (96-108) mmol/L Carbon Dioxide (22-29) mmol/L Anion Gap (12-20) BUN (9-16) mg/dL Creatinine (0.5-1.4) mg/dL Estim Creat Clear Calc Estimated GFR Random Glucose (60-115) mg/dL Calcium (8.4-10.2) mg/dL Total Bilirubin (0.0-1.0) mg/dL AST (5-31) U/L ALT (0-31) U/L Alkaline Phosphatase (39-117) U/L Total Protein (6.5-8.0) g/dL Albumin (3.5-5.0) g/dL Urine Color YELLOW Urine Appearance HAZY Urine pH 7.0 (5.0-8.0) Ur Specific [place] 1.015 (1.005-1.025) Urine Protein NEG (NEG-TRACE) MG/DL Urine Glucose (UA) NEG (NEG) MG/DL Urine Ketones NEG (NEG) MG/DL Urine Blood NEG (NEG) Urine Nitrite NEG (NEG) Ur Leukocyte Esterase NEG (NEG) Discharge Plan Discharge Clinical Impression: Cellulitis of left leg, Hematoma Patient Disposition: Home, Self-Care Instructions: Cellulitis (ED), Hematoma (ED) Additional Instructions: Hold Coumadin for tonight and start from tomorrow same dose Antibiotic as advised Local care of hematoma as advised Recheck INR in 4 days Prescriptions: New cephalexin 500 mg capsule 500 mg PO QID 10 Days Qty: 40 0RF No Action quetiapine 25 mg tablet 25 mg PO BID 0RF cetirizine 10 mg tablet 10 mg PO DAILY PRN (Reason: allergies) 0RF clonazepam 0.5 mg tablet 0.5 mg PO BID PRN (Reason: anxiety) 0RF warfarin 2.5 mg tablet 2.5 tab PO DAILY@1600 0RF Hold Instructions: Resume on 02/05/21. resume once INR is 3 or less paroxetine HCl 20 mg tablet 20 mg PO QAM 0RF pramipexole 0.25 mg tablet 0.25 mg PO TID 0RF omeprazole 20 mg capsule,delayed release(DR/EC) 20 mg PO DAILY 0RF multivitamin Tablet 1 tab PO DAILY 0RF carbidopa-levodopa 25-100 mg tablet 2 tab PO 0700,1100,1500,1900 0RF phenazopyridine [Pyridium] 100 mg tablet 100 mg PO TID PRN (Reason: spasm) 4 Days Qty: 12 0RF sulfamethoxazole-trimethoprim [Bactrim] 400-80 mg tablet 1 tab PO DAILY Qty: 10 0RF tramadol 50 mg tablet 50 mg PO Q6H PRN (Reason: pain (scale score 4-6)) Qty: 14 0RF tamsulosin 0.4 mg capsule 0.4 mg PO BEDTIME 14 Days Qty: 14 0RF levofloxacin 250 mg tablet 250 mg PO DAILY 6 Days Qty: 6 0RF Rx Instructions: start on 08/02 pyridoxine (vitamin B6) 100 mg tablet 100 mg PO DAILY 90 Days Qty: 90 1RF Interventions: ED Discharge Assessment Last Done: 11/13/21 20:25 Discharge Date/Time: 11/13/21 20:33
[2021-11-13 17:48] VITALS: BP 128/72; PULSE 86; RESP 16; TEMP 37.1; O2SAT 99
[2021-11-13] MEDS: cephALEXin 500 MG CAPSULE PO (17:59)
[2021-11-13 18:03] LABS: MANUAL DIFF FLAG NO
[2021-11-13 18:04] LABS: Basophils Percent Auto 0.1 % (0-2); Eosinophils Absolute Auto 0.1 X10*3/uL (0.0-0.4); Eosinophils Percent Auto 0.7 % (0-4); Hematocrit 29.1 % (37.0-47.0); Hemoglobin 9.5 g/dl (12.0-16.0); Imm Gran Abs Auto 0.03 X10*3/uL (0.00-0.03); Imm Gran Pct Auto 0.3 % (0.0-0.4); Lymphocytes Absolute Auto 1.3 X10*3/uL (1.2-4.9); Mean Corpuscular HGB Conc 32.6 g/dl (31.0-35.0); Mean Corpuscular Hemoglobin 31.8 pg (27.0-33.0); Mean Corpuscular Volume 97.3 fL (80.0-98.0); Mean Platelet Volume 9.8 fL (9.4-12.3); Neutrophils Absolute Auto 7.1 x10*3/uL (2.0-8.3); Neutrophils Percent Auto 74.9 % (45-73); Platelet Count 378 X10*3/uL (160-400); Red Blood Count 2.99 X10*6/uL (4.20-5.50); Red Cell Distribution Width 12.8 % (11.0-16.0); White Blood Count 9.5 X10*3/uL (4.8-10.8)
[2021-11-13 18:12] LABS: INTERNATIONAL NORM RATIO 3.5 (0.9-1.1); Prothrombin Time 41.3 SEC (9.9-13.0)
[2021-11-13 18:35] LABS: Alanine Aminotransferase 7 U/L (0-31); Albumin Level 3.5 g/dL (3.5-5.0); Alkaline Phosphatase 78 U/L (39-117); Anion Gap 12 (12-20); Aspartate Amino Transferase 25 U/L (5-31); Bilirubin Total 0.5 mg/dL (0.0-1.0); Blood Urea Nitrogen 20 mg/dL (9-16); Calcium 9.3 mg/dL (8.4-10.2); Carbon Dioxide 26 mmol/L (22-29); Chloride 110 mmol/L (96-108); Creatinine Clr Calc Pharmacy 46.9; Estimated Glomerular Filt Rate > 60; Glucose Random 117 mg/dL (60-115); Potassium 5.1 mmol/L (3.3-5.1); Sodium 143 mmol/L (135-145); Total Protein 6.5 g/dL (6.5-8.0)
[2021-11-13 19:27] LABS: Appearance Urine HAZY; Color Urine YELLOW; Glucose Urine UA NEG (NEG); Leukocyte Esterase Urine NEG (NEG); Nitrite Urine NEG (NEG); Specific Gravity - Urine 1.015 (1.005-1.025); Urine Blood NEG (NEG); Urine Ketones NEG (NEG); Urine Protein NEG (NEG-TRACE)
[2021-11-13 20:03] VITALS: BP 169/71; PULSE 88; RESP 16; O2SAT 100
== END 2021-11-13 20:33 | disposition home or self-care (01) ==
PROVIDERS: Emergency Provider Internal Medicine; PCP Internal Medicine
DX: L03.116 Cellulitis of left lower limb (principal); S80.12XA Contusion of left lower leg, initial encounter; X58.XXXA Exposure to other specified factors, initial encounter; R21 Rash and other nonspecific skin eruption; G20 Parkinson's disease; F02.80 Dementia in other diseases classified elsewhere, unspecified severity, without behavioral disturbance, psychotic disturbance, mood disturbance, and anxiety; I48.91 Unspecified atrial fibrillation; Z86.718 Personal history of other venous thrombosis and embolism; Z79.01 Long term (current) use of anticoagulants; Y93.9 Activity, unspecified; Y92.9 Unspecified place or not applicable; Y99.9 Unspecified external cause status
CPT/HCPCS: 36415; 80053; 81003; 85025; 85610; 99283; 99284

== ENCOUNTER 2022-02-15 16:00 | Inpatient (IN) | payer OTHER, MEDICAID, SELFPAY ==
--- NOTE | ~2022-02-15 | CT_ITS ---
CT HEAD WITHOUT IV CONTRAST INDICATION: Follow-up hematomas. COMPARISON: Head CT 02/15/2022. TECHNIQUE: Multidetector CT acquisitions of the head was obtained without IV contrast. This CT examination was performed using dose optimization techniques as appropriate, variously including the following: *Automated exposure control *Adjustment of mA and/or kV according to patient size (this includes techniques or standardized protocols for targeted exams where dose is matched to indication/reason for exam; i.e. extremities or head) *Use of iterative reconstruction technique FINDINGS: Small heterogeneous density bifrontal convexity subdural hematomas are stable and volume resulting in unchanged mild local mass effect without midline shift. Small volume subdural hematoma along the posterior left falx cerebri is also stable. No worsening hemorrhage. There is global cerebral volume loss and there is moderate chronic microangiopathy. There is no hydrocephalus, midline shift, or other herniation pattern. Herrera to white matter differentiation is diffusely maintained without evidence of an evolved acute territorial infarct. The basilar cisterns are preserved. No significant soft tissue abnormality. No acute osseous abnormality. Near-complete opacification of the left maxillary sinus. Left facial hematoma again noted. CT/CT head/brain wo con IMPRESSION: - Small heterogeneous density bifrontal convexity subdural hematomas are stable and volume resulting in unchanged mild local mass effect without midline shift. Small volume subdural hematoma along the posterior left falx cerebri is also stable. No worsening hemorrhage. - There is global cerebral volume loss and there is moderate chronic microangiopathy. - Left facial hematoma again noted. - Stable near complete opacification of the left maxillary sinus.
--- NOTE | ~2022-02-15 | CT_ITS ---
EXAMINATION: NONCONTRAST HEAD CT NONCONTRAST MAXILLOFACIAL CT NONCONTRAST CERVICAL SPINE CT INDICATION INFORMATION: Fall COMPARISON: 08/01/2021 TECHNIQUE: Separate noncontrast CT examinations of the head, maxillofacial bones, and cervical spine were performed. Coronal and sagittal images were created for each examination at the technologist workstation. This CT examination was performed using dose optimization techniques as appropriate, variously including the following: *Automated exposure control *Adjustment of mA and/or kV according to patient size (this includes techniques or standardized protocols for targeted exams where dose is matched to indication/reason for exam; i.e. extremities or head) *Use of iterative reconstruction technique DLP: 1383 mGy-cm FINDINGS: Head: Small bilateral chronic cerebral hemispheric subdural hematomas. On the left this measures 0.5 cm at the frontal region. The right this measures 0.7 cm in the frontal region. There is no evidence of acute territorial infarction. No abnormal mass effect or midline shift is seen. Herrera to white matter differentiation is well preserved. No hydrocephalus. Proportional prominence of the ventricles and sulcal spaces is consistent with mild volume loss. Patchy periventricular and deep white matter hypoattenuation is consistent with mild small vessel ischemic changes. No acute soft tissue abnormality. No calvarial fracture. The mastoid air cells are well aerated. Maxillofacial: Prominent soft tissue swelling with hematoma inferior to the left zygoma. No acute maxillofacial fractures are seen. The zygomatic arches are intact. The pterygoid plates are intact. Lamina papyracea are intact. The nasal bone is intact. Opacification of the left maxillary sinus. The remaining paranasal sinuses are well aerated. The uncinate process is normal bilaterally. The infundibula and middle meati are patent. The nasal septum deviates to the right. The mandibular heads are well-seated in the condylar fossa. The orbits demonstrate a normal appearance bilaterally. The globes are intact, and there are no suspicious findings to suggest retrobulbar hemorrhage. Cervical spine: Reversal of the normal cervical lordosis. There is otherwise anatomic alignment of the vertebral bodies and posterior elements. The atlantoaxial and atlantooccipital articulations are intact. Vertebral body heights are maintained. There is multilevel intervertebral disc space narrowing with endplate osteophyte formation and facet arthropathy. No evidence of acute fracture. No prevertebral soft tissue swelling. There is superficial soft tissue swelling extending into the left neck. Visualized portions of the lung apices are unremarkable. The thyroid gland is unremarkable. CT/CT cervical spine wo con IMPRESSION: 1. Small bifrontal acute on chronic subdural hematomas. No mass effect or midline shift. No parenchymal hemorrhage. 2. Prominent superficial hematoma of the left face with inflammation extending into the left neck. No maxillofacial fracture. 3. No fracture or malalignment of the cervical spine. Advanced degenerative changes throughout. This critical result was discussed with Nita Gillis MD by telephone at 02/15/2022 11:55 PM and it was ascertained that the content and urgency of the report was understood at the time of direct communication.
[2022-02-15 16:26] VITALS: BP 94/55; PULSE 96; RESP 16; O2SAT 96; BMI 27.2
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
[2022-02-15 23:51] LABS: MANUAL DIFF FLAG NO
[2022-02-15 23:58] LABS: Basophils Percent Auto 0.3 % (0-2); Eosinophils Percent Auto 0.4 % (0-4); Hematocrit 38.3 % (37.0-47.0); Hemoglobin 12.9 g/dl (12.0-16.0); Imm Gran Abs Auto 0.05 X10*3/uL (0.00-0.03); Imm Gran Pct Auto 0.5 % (0.0-0.4); Lymphocytes Absolute Auto 1.6 X10*3/uL (1.2-4.9); Lymphocytes Percent Auto 15.5 % (20-40); Mean Corpuscular HGB Conc 33.7 g/dl (31.0-35.0); Mean Corpuscular Hemoglobin 31.5 pg (27.0-33.0); Mean Corpuscular Volume 93.4 fL (80.0-98.0); Mean Platelet Volume 11.6 fL (9.4-12.3); Monocytes Percent Auto 10.1 % (2-11); Neutrophils Absolute Auto 7.5 x10*3/uL (2.0-8.3); Neutrophils Percent Auto 73.2 % (45-73); Platelet Count 185 X10*3/uL (160-400); Red Cell Distribution Width 13.3 % (11.0-16.0); White Blood Count 10.3 X10*3/uL (4.8-10.8)
[2022-02-16 01:06] LABS: Lactic Acid 1.9 mmol/L (0.5-2.0)
[2022-02-16 01:36] LABS: Appearance Urine HAZY; Color Urine DK YELLOW; Glucose Urine UA NEG (NEG); Leukocyte Esterase Urine TRACE (NEG); Nitrite Urine NEG (NEG); PH 5.5 (5.0-8.0); Specific Gravity - Urine >= 1.030 (1.005-1.025); Urine Blood NEG (NEG); Urine Ketones NEG (NEG); Urine Protein TRACE MG/DL (NEG-TRACE)
[2022-02-16 01:42] LABS: INTERNATIONAL NORM RATIO 2.6 (0.9-1.1); Prothrombin Time 30.9 SEC (10.0-13.1)
[2022-02-16 01:47] LABS: Amorphous Sediment Urine 3+ /LPF
[2022-02-16 01:48] LABS: Bacteria Urine TRACE /LPF; Mucus Urine TRACE /LPF; RBC Urine 0-2 /HPF (0); Squamous Epithelial Cell Urine 2+ /LPF; Urine Talc Crystals 1+ /LPF
[2022-02-16 01:58] LABS: Alanine Aminotransferase 13 U/L (0-31); Albumin Level 3.8 g/dL (3.5-5.0); Alkaline Phosphatase 82 U/L (39-117); Anion Gap 11 (12-20); Aspartate Amino Transferase 25 U/L (5-31); Bilirubin Direct 0.2 mg/dL (0.0-0.5); Bilirubin Total 0.5 mg/dL (0.0-1.0); Blood Urea Nitrogen 29 mg/dL (9-16); Calcium 9.4 mg/dL (8.4-10.2); Carbon Dioxide 27 mmol/L (22-29); Chloride 107 mmol/L (96-108); Creatinine Clr Calc Pharmacy 34.6; Estimated Glomerular Filt Rate 46; Glucose Random 127 mg/dL (60-115); Potassium 4.1 mmol/L (3.3-5.1); Sodium 141 mmol/L (135-145); Total Protein 6.7 g/dL (6.5-8.0)
[2022-02-16 02:00] VITALS: BP 132/76; PULSE 76; RESP 15; TEMP 36.4; O2SAT 100
[2022-02-16 06:05] VITALS: BP 138/72; PULSE 73; RESP 16; O2SAT 98
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
[2022-02-16 06:24] LABS: COVID-19 Test Negative (Negative)
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
[2022-02-16 09:12] VITALS: BP 135/84; PULSE 74; RESP 16; TEMP 36.7; O2SAT 100
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
[2022-02-16] MEDS: Lactated Ringers 1,000 ML 80 ML IVCONT (09:25)
[2022-02-16] MEDS: 0.9 % Sodium Chloride Flush 3 ML SYRINGE IVFLUSH ×2 (09:28→15:57)
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
--- NOTE | 2022-02-16 10:46 | PHA.MEDREC ---
Pharmacy Consult ? Medication Reconciliation Pharmacy has completed the medication reconciliation. SPOKE TO PATIENTS DAUGHTER
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
[2022-02-16] MEDS: Calcium + Vitamin D 250 MG TABLET PO ×2 (15:01→21:25)
[2022-02-16] MEDS: Carbidopa/Levodopa 25/100 TABLET 2 TAB PO ×2 (15:02→18:47)
[2022-02-16 15:04] VITALS: BP 160/74; PULSE 72; RESP 18; O2SAT 97
[2022-02-16] MEDS: Pramipexole Di-HCL 0.25 MG TABLET PO ×2 (15:48→20:16)
[2022-02-16 20:14] VITALS: BP 143/96; PULSE 78; RESP 19; O2SAT 97
[2022-02-16] MEDS: clonazePAM 0.5 MG TABLET PO (20:16)
[2022-02-16] MEDS: Carbidopa/Levodopa CR 50/200 TABLET.ER 1 TAB PO (21:26)
[2022-02-16 23:44] VITALS: BP 152/86; PULSE 68; RESP 17; O2SAT 97
[2022-02-17 04:03] VITALS: BP 150/72; PULSE 77; RESP 18; O2SAT 97
[2022-02-17] MEDS: Carbidopa/Levodopa 25/100 TABLET 2 TAB PO ×3 (06:36→15:23)
[2022-02-17] MEDS: Omeprazole 20 MG CAPSULE.DR PO (06:37)
[2022-02-17 09:19] LABS: Anion Gap 14 (12-20); Blood Urea Nitrogen 21 mg/dL (9-16); Calcium 8.4 mg/dL (8.4-10.2); Carbon Dioxide 20 mmol/L (22-29); Chloride 111 mmol/L (96-108); Estimated Glomerular Filt Rate > 60; Glucose Random 95 mg/dL (60-115); Potassium 4.6 mmol/L (3.3-5.1); Sodium 140 mmol/L (135-145)
[2022-02-17 09:49] LABS: PLT CLUMP 1; SCAN SMEAR FLAG 1
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
[2022-02-17 09:51] LABS: Basophils Percent Auto 0.3 % (0-2); Eosinophils Absolute Auto 0.2 X10*3/uL (0.0-0.4); Eosinophils Percent Auto 2.8 % (0-4); Hematocrit 42.6 % (37.0-47.0); Hemoglobin 14.1 g/dl (12.0-16.0); Imm Gran Abs Auto 0.02 X10*3/uL (0.00-0.03); Imm Gran Pct Auto 0.3 % (0.0-0.4); Lymphocytes Absolute Auto 1.7 X10*3/uL (1.2-4.9); MANUAL DIFF FLAG SCAN; Mean Corpuscular HGB Conc 33.1 g/dl (31.0-35.0); Mean Corpuscular Hemoglobin 31.5 pg (27.0-33.0); Mean Corpuscular Volume 95.3 fL (80.0-98.0); Mean Platelet Volume 11.9 fL (9.4-12.3); Monocytes Absolute Auto 0.9 X10*3/uL (0.1-1.2); Monocytes Percent Auto 11.6 % (2-11); NRBC Pct Auto 0.7 /100WBC (0.0-0.2); Neutrophils Absolute Auto 4.6 x10*3/uL (2.0-8.3); Red Blood Count 4.47 X10*6/uL (4.20-5.50); Red Cell Distribution Width 12.9 % (11.0-16.0)
[2022-02-17 09:59] LABS: INTERNATIONAL NORM RATIO 2.8 (0.9-1.1); Prothrombin Time 33.5 SEC (10.0-13.1)
[2022-02-17] MEDS: Calcium + Vitamin D 250 MG TABLET PO ×3 (10:03→21:54)
[2022-02-17] MEDS: Multivitamin TABLET 1 TAB PO (10:03)
[2022-02-17] MEDS: PARoxetine HCL 20 MG TABLET PO (10:04)
[2022-02-17] MEDS: Pramipexole Di-HCL 0.25 MG TABLET PO ×3 (10:04→21:54)
[2022-02-17] MEDS: Loratadine 10 MG TABLET PO (10:04)
[2022-02-17] MEDS: QUEtiapine Fumarate 25 MG TABLET PO (10:04)
[2022-02-17] MEDS: Carbidopa/Levodopa CR 50/200 TABLET.ER 1 TAB PO ×2 (10:05→21:54)
[2022-02-17] MEDS: Pyridoxine HCl (Vitamin B6) 50 MG TABLET 100 MG PO (10:05)
[2022-02-17 10:08] LABS: White Blood Count 7.4 X10*3/uL (4.8-10.8)
[2022-02-17] MEDS: 0.9 % Sodium Chloride Flush 3 ML SYRINGE IVFLUSH ×2 (10:18→15:22)
[2022-02-17] MEDS: Lactated Ringers 1,000 ML 80 ML IVCONT (10:25)
[2022-02-17 10:41] LABS: SLIDE REVIEW VERIFIED
[2022-02-17 17:30] VITALS: PULSE 78; RESP 18; TEMP 36.2; O2SAT 97
[2022-02-17] MEDS: clonazePAM 0.5 MG TABLET PO (21:54)
[2022-02-18] VITALS: BP 160/82; PULSE 88; RESP 16; TEMP 36.9; O2SAT 100
[2022-02-18] MEDS: Lactated Ringers 1,000 ML 80 ML IVCONT (00:24)
[2022-02-18 03:23] VITALS: BP 158/74; PULSE 71; RESP 18; TEMP 36.5; O2SAT 100
[2022-02-18 05:13] LABS: INTERNATIONAL NORM RATIO 2.5 (0.9-1.1); Prothrombin Time 30.2 SEC (10.0-13.1)
[2022-02-18] MEDS: Omeprazole 20 MG CAPSULE.DR PO (06:23)
[2022-02-18 08:00] VITALS: BP 157/63; PULSE 69; RESP 18; TEMP 36.3; O2SAT 100
[2022-02-18] MEDS: PARoxetine HCL 20 MG TABLET PO (08:49)
[2022-02-18] MEDS: Calcium + Vitamin D 250 MG TABLET PO ×4 (08:49→21:03)
[2022-02-18] MEDS: Multivitamin TABLET 1 TAB PO (08:49)
[2022-02-18] MEDS: QUEtiapine Fumarate 25 MG TABLET PO (08:49)
[2022-02-18] MEDS: Pyridoxine HCl (Vitamin B6) 50 MG TABLET 100 MG PO (08:49)
[2022-02-18] MEDS: Loratadine 10 MG TABLET PO (08:49)
[2022-02-18] MEDS: Carbidopa/Levodopa 25/100 TABLET 2 TAB PO ×4 (08:58→19:22)
[2022-02-18] MEDS: Carbidopa/Levodopa CR 50/200 TABLET.ER 1 TAB PO ×2 (10:16→23:06)
[2022-02-18] MEDS: Pramipexole Di-HCL 0.25 MG TABLET PO ×3 (11:02→21:03)
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
--- NOTE | 2022-02-18 14:23 | PC.NURSE ---
Ashely Niño from protective services came to see the pt today. She asked for the MD to call her. Dr. Mauro made aware.
[2022-02-18 16:33] VITALS: BP 166/83; PULSE 73; RESP 14; TEMP 36.4; O2SAT 99
[2022-02-18] MEDS: 0.9 % Sodium Chloride Flush 3 ML SYRINGE IVFLUSH (16:35)
[2022-02-18] MEDS: clonazePAM 0.5 MG TABLET PO (21:02)
[2022-02-19] VITALS: BP 135/94; PULSE 70; RESP 18; TEMP 36.4; O2SAT 100
[2022-02-19 04:00] VITALS: BP 133/75; PULSE 67; RESP 18; TEMP 36.2; O2SAT 98
[2022-02-19] MEDS: Carbidopa/Levodopa 25/100 TABLET 2 TAB PO ×2 (06:18→12:32)
[2022-02-19] MEDS: Omeprazole 20 MG CAPSULE.DR PO (06:19)
[2022-02-19 06:40] LABS: Prothrombin Time 23.2 SEC (10.0-13.1)
[2022-02-19 08:00] VITALS: BP 128/79; PULSE 80; RESP 17; TEMP 36; O2SAT 93
--- NOTE | 2022-02-19 08:32 | P.CDIC_ITS ---
CDI Concurrent Query Documentation Clarification: PHYSICIAN'S DOCUMENTATION REQUEST Date of Query: 02/19/22 0832 Patient Name: Ashely Huber Admit Date: 02/16/22 Dear Doctor, A review of the medical record indicates additional documentation may be needed. Please review below and update the documentation accordingly. Clinical Indicators: The following diagnoses or signs and symptoms were noted in the patient record: Lab Tests: Imaging: Progress Notes: Nurse's Notes: Ancillary Notes: Other Documentation: Risk Factors/Clinical Indicators/Treatments INR 2.6 on 02/16 INR 2.8 on 02/17 INR 2.5 on 02/18 INR 2.0 on 02/19 hold Coumadin per H&P 02/16/22 Based on the above, could you clarify in the Progress Notes the appropriate diagnosis, if significant, that supports the above abnormalities and additional evaluation, monitoring, and/or treatment rendered: * Based on the above clinical indicators, please provide a diagnosis associated with the evaluation, monitoring of the patient's INR level * Other (please specify) * Unable to determine Use of terms such as suspected, likely, concern for, or probable (associated with a specific diagnosis that is being evaluated, monitored, or treated as if it exists) are acceptable and can be coded in the inpatient setting, when documented at the time of discharge. Thank you, Joceline Rizo RN Extension: [phone] Please use your independent medical judgment in providing your response. THIS QUERY IS PART OF THE PERMANENT MEDICAL RECORD Provider Response: Other Other Diagnosis: associated diagnosis is documented in H and P and last progress notes
[2022-02-19] MEDS: PARoxetine HCL 20 MG TABLET PO (10:10)
[2022-02-19] MEDS: Pyridoxine HCl (Vitamin B6) 50 MG TABLET 100 MG PO (10:10)
[2022-02-19] MEDS: 0.9 % Sodium Chloride Flush 3 ML SYRINGE IVFLUSH (10:10)
[2022-02-19] MEDS: Loratadine 10 MG TABLET PO (10:10)
[2022-02-19] MEDS: Carbidopa/Levodopa CR 50/200 TABLET.ER 1 TAB PO (10:10)
[2022-02-19] MEDS: Multivitamin TABLET 1 TAB PO (10:10)
[2022-02-19] MEDS: Pramipexole Di-HCL 0.25 MG TABLET PO (10:10)
[2022-02-19] MEDS: QUEtiapine Fumarate 25 MG TABLET PO (10:10)
[2022-02-19] MEDS: Calcium + Vitamin D 250 MG TABLET PO ×2 (10:11→12:32)
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
[2022-02-19 11:41] VITALS: BP 114/54; PULSE 79; RESP 17; TEMP 36; O2SAT 98
--- NOTE | 2022-02-19 12:31 | PC.NURSE ---
pt HCP Susan discussed coumadin with Dr Mauro and decided to stop the coumadin.
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
== END 2022-02-19 12:50 | disposition home or self-care (01) | DRG 83 ==
LOC: HO.ED 02-16 02:31 → HO.EDOVER 02-16 06:19 → HO.S3 02-18 19:15
PROVIDERS: Internal Medicine; Admitting Provider Internal Medicine; Emergency Provider Emergency Medicine; PCP Internal Medicine; Visit Provider Internal Medicine
DX: S06.5X9A Traumatic subdural hemorrhage with loss of consciousness of unspecified duration, initial encounter (principal); N39.0 Urinary tract infection, site not specified; T76.11XA Adult physical abuse, suspected, initial encounter; I48.0 Paroxysmal atrial fibrillation; F41.9 Anxiety disorder, unspecified; K21.9 Gastro-esophageal reflux disease without esophagitis; F32.9 Major depressive disorder, single episode, unspecified; S00.83XA Contusion of other part of head, initial encounter; X58.XXXA Exposure to other specified factors, initial encounter; G20 Parkinson's disease; F02.80 Dementia in other diseases classified elsewhere, unspecified severity, without behavioral disturbance, psychotic disturbance, mood disturbance, and anxiety; Z86.718 Personal history of other venous thrombosis and embolism; Z20.822 Contact with and (suspected) exposure to COVID-19; Z87.442 Personal history of urinary calculi; Z88.0 Allergy status to penicillin; Z79.01 Long term (current) use of anticoagulants; Z79.899 Other long term (current) drug therapy
CPT/HCPCS: 36415; 70450; 70486; 72125; 80048; 80076; 81001; 83605; 85025; 85610; 87040; 87635; 99285

== ENCOUNTER 2022-03-06 14:30 | Outpatient (REF) | payer OTHER, MEDICAID, SELFPAY ==
--- NOTE | ~2022-03-06 | US_ITS ---
EXAMINATION: US RETROPERITONEAL LIMITED (RENAL ONLY) CLINICAL INFORMATION: Calculus of kidney. COMPARISON: US retroperitoneal limited (renal only) 05/01/2021. CT abdomen and pelvis without contrast 06/12/2020. TECHNIQUE: Real-time imaging of the kidneys. FINDINGS: RIGHT KIDNEY: 9.1 x 4.1 x 4.6 cm (SAG x AP x TRV). The kidney is normal in size, contour, and echogenicity. Renal cortical thickness is normal. No focal parenchymal lesions or hydronephrosis. 5 mm nonobstructing upper pole renal stone similar to prior previously 6 mm. The previously seen 4 mm nonobstructing stone is no longer identified. LEFT KIDNEY: 9.1 x 5.2 x 4.6 cm (SAG x AP x TRV). The kidney is normal in size, contour, and echogenicity. Renal cortical thickness is normal. No focal parenchymal lesions or hydronephrosis. 4 mm nonobstructing left upper pole renal stone slightly decreased from prior previously 6 mm. US/US renal BI IMPRESSION: Bilateral nonobstructing renal stones as detailed above measuring 5 mm on the right and 4 mm on the left.
== END 2022-03-06 14:31 | disposition home or self-care (01) ==
LOC: HO.HMGCX 14:30
PROVIDERS: Visit Provider Urology
DX: N20.0 Calculus of kidney (principal)
CPT/HCPCS: 76775

== ENCOUNTER → 2022-03-19 13:49 | Outpatient (BNVA) | payer OTHER, MEDICAID, SELFPAY | PROVIDERS: PCP Internal Medicine; Visit Provider Urology | DX: N20.0 Calculus of kidney (principal) | CPT/HCPCS: Q3014 ==